=== PATIENT | female | born 1970 | race Caucasian/White ===

== ENCOUNTER 2024-12-13 09:40 | Outpatient (CLI) | payer BC, SELFPAY ==
--- OUTSIDE RECORDS SUMMARY | 2024-10-20 12:49 | XMS_ITS | Encounter Summary ---
Author Organization Healthcare Address [address] [place] [address] Care Team Providers Care Carpenter Supervisor [employer] Name Role Phone Jeferson Simental MD Primary Care Provider [phone] Reason for Visit * Reason Comments Post-op Problem * Auth/Cert (Routine) Specialty Diagnoses / Procedures Referred By Contac t Referred To Contact Diagnoses Dysphagia Dysphagia, unspecified type Chest pain, unspecified type Toyin Vila MD [address] [employer] [address] [place] [phone] Phone: tel: fax: [facility] [address] [place] [address] Phone: tel: Referral ID Status Reason Start Date Expiration Date Visits Re quested Visits Authorized [id number] 1 1 Encounter Details Date Type Department Care Team (Late st Contact Info) Description 10/20/2024 12:49 PM EDT - 10/23/2024 10:49 AM EDT Hospital Encounter [facility] [address] [place] [address] Toyin Vila MD [address] [employer] [address] [place] [phone] [place] [address] [place] [phone] Dysphagia, unspecified type (Primary Dx); Chest pain, unspecified type Discharge Disposition: Home or Self Care Social History Tobacco Use Types Packs/Day Years Used Date Smoking Tobacco: Never Smokeless Tobacco: Never Alcohol Use Standard Drinks/Week Comments Not Currently 0 (1 standard drink = 0.6 oz pure alcohol) 1 glass of wine every few months PHQ-2 Answer Date Recorded Patient Health Questionnaire-2 Score 0 09/16/2024 PHQ-9 Answer Date Recorded Patient Health Questionnaire-9 Score 0 09/16/2024 Humiliation, Afraid, Rape, and Kick questionnair e Answer Date Recorded Within the last year, have y ou been afraid of your partner or ex-partner? No 10/21/2024 Within the last year, have y ou been humiliated or emotionally abused in other ways by your partner or ex-partner? No Within the last year, have y ou been kicked, hit, slapped, or otherwise physically hurt by your partner or ex-partner? No 10/21/2024 Within the last year, have y ou been raped or forced to have any kind of sexual activity by your partner or ex-partner? No 10/21/2024 Hunger Vital Sign Answer Date Recorded Within the past 12 months, y ou worried that your food would run out before you got the money to buy more. Never true 10/22/19 25 Within the past 12 months, t he food you bought just didn't last and you didn't have money to get more. Never true 10/21/2024 PRAPARE - Transportation Answer Date Re corded In the past 12 months, has l ack of transportation kept you from medical appointments or from getting medications? No 01/2025 In the past 12 months, has l ack of transportation kept you from meetings, work, or from getting things needed for daily living? No 10/21/2024 Housing Stability Vital Sign Answer Rosas e Recorded In the last 12 months, was t here a time when you were not able to pay the mortgage or rent on time? No 10/21/2024 In the past 12 months, how m any times have you moved where you were living? 0 10/21/2024 At any time in the past 12 m [facility], were you homeless or living in a custodial (including now)? No 10/21/2024 Utilities Answer Date Recorded In the past 12 months has th e [employer], gas, oil, or water [employer] threatened to shut off services in your home? No 10/21/2024 Comments No Sex and Gender Information Value Date Recorded Sex Assigned at Not on file Legal Sex Female 6:10 PM EDT Gender Identity Not on file Sexual Orientation Not on file documented as of this encounter Last Filed Vital Signs Vital Sign Reading Time Taken Comments Blood Pressure 129/86 10/23/2024 7:28 AM EDT Pulse 70 10/23/2024 7:28 AM EDT Temperature 36.8 C (98.3 F) 10/23/2024 7:28 AM EDT Respiratory Rate 16 10/23/2024 7:28 AM EDT Oxygen Saturation 96% 10/23/2024 7:28 AM EDT Inhaled Oxygen Concentration - - Weight 63.1 kg (139 lb 1.8 oz) 10/21/2024 8:01 A M EDT Height 157.5 cm (5' 2.01 ) 10/21/2024 8:01 AM ED T Body Mass Index 25.44 10/21/2024 8:01 AM EDT documented in this encounter Functional Status * Calculated C-SSRS Risk Score (Lifetime/Recent) Answer Date of Assessment Author No Risk Indicated 10/23/2024 7:36 AM EDT Clif Mchugh RN * Question Answer Date of Assessment Author 1. Wish to be (Past 1 Month) No 10/23/2024 7:36 AM EDT Clif Loza RN 2. Non-Specific Active Suici tai Thoughts (Past 1 Month) No 10/23/2024 7:36 AM EDT Laurel Loza RN 6. Suicidal Behavior (Lifetime) No 7:36 AM EDT Clfi Loza RN documented as of this encounter Discharge Instructions * Discharge Instructions* Alexis Pagan MD - 10/23/2024 6:47 AM EDT Post Discharge Instructions Post-Operative Discharge Instructions: Medications: - Crush all medications or take liquid options for 2 weeks - Use Gax X regularly for 2 weeks then as needed for bloating, belching, nausea etc. - You have been prescribed pain medications to be taken as needed for severe pain. - You may resume your previous medications unless otherwise instructed. -Take tylenol for pain. Take hycet as needed every 6 hours for breakthrough pain. Try to wean pain medications as soon as able as discussed in the hospital. Nutrition: - You should consume a clear liquid diet as tolerated, focusing on liquids to keep yourself hydrated. Remain on clear liquid diet until follow up appointment in clinic Activity: - Walking and climbing stairs is ok and encouraged. You should refrain from any strenuous activity/exercise until your follow up appointment. - No lifting anything more than 10 pounds for the next 3 weeks - You may not drive for 48 hours after surgery, or while taking narcotics. DO NOT DRIVE WHILE TAKING NARCOTIC PAIN MEDICATIONS. Dressing: - sutures will continue to dissolve on own. No need to remove. documented in this encounter Medications at Time of Discharge acetaminophen (Tylenol) 160 MG/5ML solution Take 20 mL by mouth every 6 hours as needed for pain. 120 mL 10/23/2024 cholecalciferol (Vitamin D3) 25 MCG (1000 UT) tablet Take 1 tablet by mouth daily. estradiol (Vivelle-DOT) 0.05 MG/24HR Place 1 patch on the skin 2 times a week. Applied Monday and Monday estradiol-norethindr one (Combipatch) 0.05-0.14 MG/DAY Place 1 patch on the skin 2 times a week. Applies on Monday and Monday fluticasone (Flonase) 50 MCG/ACT nasal spray SPRAY TWO SPRAYS IN EACH NOSTRIL ONCE DAILY NEEDED FOR ALLERGIES HYDROcodone-acetamin ophen (Hycet) 7.5-325 MG/15ML solution Take 15 mL by mouth every 6 hours as needed for severe pain (pain). 420 mL 10/09/2024 lactobacillus (Culturelle Immunity Support) capsule Take 1 capsule by mouth nightly. metoprolol succinate XL (Toprol-XL) 25 MG 24 hr tablet Take 0.5 tablets by mouth daily. Crush pill to to take 15 tablet 10/23/2024 metoprolol tartrate (Lopressor) 25 MG tablet Take 0.25 tablets by mouth 2 times a day. Crush to take 15 tablet 10/23/2024 ondansetron ODT (Zofran-ODT) 4 MG disintegrating tablet Dissolve 1 tablet on the tongue every 6 hours as needed for nausea or vomiting. 20 tablet 1 10/09/2024 progesterone (Prometrium) 100 MG capsule Take 1 tablet by mouth nightly. rosuvastatin (Crestor) 20 MG tablet Take 1 tablet by mouth nightly. 07/30/2024 simethicone (Mylicon) 20 mg/0.3 mL drops Take 1.2 mL by mouth 4 times a day as needed for flatulence. 30 mL 10/09/2024 documented as of this encounter Miscellaneous Notes * Progress Notes - Minerva Roberts RN - 10/23/2024 10:49 AM EDT Case Management Discharge Note Lois Tinajero 54 y.o. female CSN: [id number] Admission: 10/20/2024 12:49 PM Primary Problem: Dysphagia Primary Research Laboratory Specialist: Primary Caregiver: Self Assistance Available at Discharge: friends Housing Circumstances-Z Codes: na Patient Referred to Financial or Community Resources: na Discharge Facility/Level of Care Needs: Discharge Facility/Level of Care Needs: 1-Home or Self Care Patient's Choice of Community Agency(s): na Patient/Family Anticipated Services at Transition: none DME/Equipment Needed after Discharge: none Equipment Currently Used at Home: none Readmission Within the Last 30 Days: na Medicare Documentation: na Follow-up: Dr Cadena 11/13/24 at 0910. Discharge Transportation: friend Pat Follow Up Transport: self/friends/brother Minerva Roberts RN * Oliver Serrano RN - 10/23/2024 8:15 AM EDT Images from the original note were not included. [address]6905 Using an Incentive Spirometer An incentive spirometer is a handheld device that helps you do deep breathing exercises after surgery. It also helps lower the risk of breathing problems if you have a lung disease or condition. These exercises expand your lungs, aid in circulation, and may help prevent pneumonia. Deep breathing exercises also help you breathe better and improve lung function by: ? Keeping your lungs clear. ? Making your breathing muscles stronger. ? Helping prevent respiratory complications or problems. The incentive spirometer gives you a way to take an active part in your recovery. A nurse or respiratory therapist will teach you breathing exercises. To do these exercises, you will breathe in through your mouth and not your nose. The incentive spirometer only works correctly if you breathe in through your mouth. Deep breathing expands the lungs, aids circulation, and helps prevent pneumonia. Your health care provider or their staff will tell you how to use the device, your targeted volume(s), and provide other helpful tips to prevent complications (such as pain, dizziness, feeling lightheaded) when blowing in the incentive spirometer. Steps to clear lungs Step 1. Exhale normally. Then, inhale normally. ? Relax and breathe out. Step 2. Place your lips tightly around the mouthpiece. ? Make sure the device is upright and not tilted. ? Sit up and breathe out (exhale) fully. ? Tightly seal your lips around the mouthpiece. Step 3. Inhale as much air as you can through the mouthpiece. Don't breathe through your nose. ? Breathe in (inhale) slowly and deeply. ? Hold your breath long enough to keep the balls, piston, or disk raised for at least 3 to 5 seconds, or as instructed by your health care provider. ? Exhale slowly to allow the balls, piston, or disk to fall before repeating. Note: Some spirometers have an indicator to let you know that you are breathing in too fast. If theindicator goes off, breathe in more slowly. Step 4. Repeat the exercise regularly. ? Do sets of 10 exercises every hour while you're awake, or as instructed by your health care provider. Don't do more than 30 breaths in each set. ? If you were taught deep breathing and coughing exercises, do them regularly as instructed by yourprovider, nurse, or respiratory therapist. Follow-up care Make a follow-up appointment as directed by your health care provider. Also, follow up with your provider as advised if your symptoms don't improve or continue to get worse. When to contact your doctor Contact your health care provider right away if you have: ? A fever 100.4?? (38??C) or higher, or as advised by your provider. ? Brownish, bloody, or smelly sputum (phlegm that you cough up). Call 911 Call 911 if any of these occur: ? Shortness of breath that doesn't get better after taking your medicine ? Cool, moist, pale, or blue skin ? Trouble breathing or swallowing, wheezing ? Fainting or loss of consciousness ? Feeling of dizziness or weakness, or a sudden drop in blood pressure ? Feeling very ill ? Lightheadedness ? Chest pain or rapid heart rate Last Reviewed Date: 2024 00:00:00 ?? [id number] [facility]. All rights reserved. This information is not intended as a substitute for professional medical care. Always follow your healthcare professional's instructions. * Z[facility] SantosDOM[facility] - Oliver Mae RN - 10/23/2024 8:15 AM EDT Images from the original note were not included. 50811 Preventing Deep Vein Thrombosis After Surgery In the days and weeks after surgery, you have a higher chance of developing a deep vein thrombosis (DVT). This is a condition in which a blood clot or thrombus develops in a deep vein. They are most common in the leg. But a DVT may develop in an arm or another deep vein in the body. A piece of the clot, called an embolus, can separate from the vein and travel to the lungs. A blood clot in the lungs is called a pulmonary embolus (PE). This can cut off the flow of blood to the lungs. It's a medical emergency and may cause . Healthcare providers use the term venous thromboembolism (VTE) to describe both DVT and PE. They use the term VTE because the two conditions are very closely related and their prevention and treatment are similar. Prevention in the hospital or other facility Your healthcare provider will usually prescribe one or more of the following to prevent blood clots: ? Blood-thinner (anticoagulant). This medicine prevents blood clots. You take it by mouth, by injection, or through an IV (intravenous). Commonly used anticoagulants include warfarin and heparin. Newer anticoagulants may also be used, including rivaroxaban, apixaban, dabigatran, and enoxaparin. Sometimes, your healthcare provider may not give you an anticoagulant medicine. It's important that they discuss the risks and benefits with you and document them. ? Compression stockings. These elastic stockings fit tightly around your legs. They help keep bloodflowing toward your heart by the pressure they apply. They prevent blood from pooling and forming blood clots. When you first put them on, the stockings may be uncomfortable. But after a while, you should get used to them. ? Exercises. Simple exercises while you are resting in bed or sitting in a chair can help prevent blood clots. Move your feet in a [place] or up and down. Do this 10 times an hour to improve circulation. ? Getting out of bed and walking (ambulation). After surgery, a nurse will help you out of bed as soon as you are able. Moving around improves circulation and helps prevent blood clots. ? Sequential compression device (SCD) or intermittent pneumatic compression (IPC). Plastic sleeves are wrapped around your legs and connected to a pump that inflates and deflates the sleeves. This applies gentle pressure to promote blood flow in the legs and prevent blood clots. Remove the sleeves so that you don't trip or fall when you are walking. For example, when you use the bathroom or shower. If you need help removing the sleeves, ask for help. Prevention at home Ankle exercises can help keep blood flowing in the veins. Deep vein thrombosis can happen even after you go home. Follow all instructions from your healthcare provider. The following are some general guidelines about DVT prevention: ? Blood-thinner medicine. If a blood thinner was prescribed, make sure you follow all directions about taking it. Be sure you know what foods and medicines may interact. Also, ask your healthcare provider what to do if you forget to take a dose. ? Compression stockings. Your healthcare provider will tell you how often to wear and remove the stockings. Follow all instructions closely. Each time you remove your stockings, check your legs and feet for reddened areas or sores. If you see any changes, call your healthcare provider right away. ? Returning to activity. Follow all instructions about returning to activities. Be as active as youcan. This improves blood flow and helps prevent a clot from forming. When in bed or in a chair, continue with the ankle exercises you did in the hospital. ? Sequential compression device (SCD) or intermittent pneumatic compression (IPC). In some cases, this device may be recommended at home. If you are using this device at home, make sure you closely follow all instructions from your healthcare provider. You will be instructed on how often and for how long to use the device. Again, remove the sleeves if you are up and walking. When to call your healthcare provider You may have signs or symptoms of a blood clot. Or you may have signs or symptoms of bleeding from medicines to prevent clots. Call your healthcare provider if you have the following: ? Pain, swelling, or redness in the leg, arm, or other area ? Blood in the urine or stool ? Very dark or tar-like stool ? Vomiting with blood ? Bleeding from the nose ? Bleeding from the gums ? A cut that will not stop bleeding ? Bleeding from the vagina Call 911 Call 911 if you have any of the following: ? Chest pain ? Shortness of breath ? Fast heartbeat ? Excessive sweating ? Fainting ? Coughing (may cough up blood) ? Heavy or uncontrolled bleeding Last Reviewed Date: 2021 00:00:00 ?? [id number] [facility]. All rights reserved. This information is not intended as a substitute for professional medical care. Always follow your healthcare professional's instructions. * [facility] - Oliver Mae RN - 10/23/2024 8:15 AM EDT Images from the original note were not included. 43911 Preventing a Surgical Site Infection A risk of any surgery is an infection at the surgical site. The surgical site is a cut the surgeon makes in the skin to do the surgery. Surgical site infections can range in type. It may be a minor skin infection. Or it may be severe and include tissue under the skin or other organs. In some cases,a severe infection can cause . The information below tells you: ? About surgical site infections. ? What hospitals do to prevent them. ? How they?re treated if they do occur. ? What you can do to prevent an infection. Hand washing reduces the risk of infection. What causes a surgical site infection? Germs are everywhere. They?re on your skin, in the air, and on things you touch. Many germs are good. Some are harmful. Surgical site infections occur when harmful germs enter your body through the incision in your skin. Some infections are caused by germs that are in the air or on objects. But most are caused by germs found on and in your own body. Who is at risk for a surgical site infection? Anyone can have a surgical site infection. Your risk is higher if you: ? Are an older adult. ? Have a weak immune system. ? Have other health conditions such as diabetes. ? Take certain medicines, such as steroids. ? Are a smoker. ? Have certain types of surgery, such as abdominal surgery. ? Have poor nutrition. ? Are very overweight. ? Have a surgery that lasts longer than 2 hours. What are the symptoms of a surgical site infection? An infection often shows up as skin redness, pain, and swelling around the incision that gets worse. Later, a cloudy or greenish-yellow fluid may come from the incision. The fluid may smell bad. The incision may pull apart or open up. You are likely to have a fever and may feel very ill. Symptoms can appear at any time. They may happen from hours to weeks after surgery. Implants such as an artificial knee or hip can become infected at any time after the surgery. How is a surgical site infection treated? ? A surgical site infection is treated with antibiotics. The type of medicine you get will depend on what may be causing the infection. Most serious wound infections need wound care. In some cases, surgery may be needed on the infected wound. ? An infected skin wound may be reopened and cleaned. A deep wound may need to be packed with gauze. The gauze is changed often until the wound starts to heal from the inside out. Your health care provider will decide the best way to treat your infection. ? If an infection occurs where an implant is placed, the implant may be removed. ? If you have an infection deeper in your body, you may need surgery to treat it. What hospitals do to prevent surgical site infections Many hospitals take these steps to help prevent surgical site infections: ? Handwashing. Before the surgery, your surgeon and all surgery staff scrub their hands and arms with an antiseptic soap. ? Clean skin. The site where your incision is made is carefully cleaned with an antiseptic solution. ? Sterile clothing and drapes. The surgical team wears medical uniforms. These are known as scrub suits. They wear long-sleeved surgical gowns, masks, caps, shoe covers, and sterile gloves. Your bodyis fully covered with a large sterile sheet (sterile drape). There is an opening in the sheet wherethe incision is made. ? Clean air. Operating rooms have special air filters. They use positive pressure airflow to prevent unfiltered air from entering the room. ? Careful use of antibiotics. Antibiotics are given no more than 60 minutes before the incision is made. They are generally stopped within 24 hours after surgery. This depends on the type of surgery.This helps kill germs but prevents problems that can occur when antibiotics are taken longer. ? Controlled blood sugar levels. Your blood sugar level may rise. This can be because of the stressof the surgery. Your blood sugar level is watched closely to make sure it stays within a normal range. High blood sugar delays wound healing. This increases the risk of infection. ? Controlled body temperature. A dyzeb-ejlp-iqrqhn temperature during or after surgery prevents oxygen from reaching the wound. This makes it harder for your body to fight infection. Hospitals may warm I.V. fluids, and provide warm-air blankets. Your temperature is watched throughout the surgery. ? Safe hair removal. Any hair that must be removed is clipped right before the incision, not shavedwith a razor. This prevents tiny nicks and cuts where germs can enter. ? Wound care. After surgery, a closed wound is covered with a sterile dressing for 1 to 2 days. Open wounds are packed with sterile gauze and covered with a sterile dressing. What you can do to prevent a surgical site infection ? Ask questions. Learn what your hospital is doing to prevent infection. ? If instructed, shower or bathe with plain soap the night before and the day of your surgery. Follow all instructions you're given. You may be asked to use a special cleanser that you don?t rinse off. ? If you smoke, stop as long as possible before and after the surgery. Ask your provider about waysto quit. ? Take antibiotics only when your provider tells you to. Using antibiotics when they?re not needed can create germs that are harder to kill. Finish the entire prescription of your antibiotics even ifyou feel better. ? Ask health care workers to clean their hands with plain soap and water or with an alcohol-based hand interlocking pavement installer before and after caring for you. Don?t be afraid to remind them. ? After surgery, eat healthy foods. Care for your incision as directed by your health care team. When to contact your doctor Contact your provider or seek medical care right away if: ? The pain at the surgical site gets worse. ? A red streak, worse redness, or puffiness appears near the incision. ? Yellowish, cloudy, or bad-smelling fluid leaks from the incision. ? Your stitches dissolve before the wound heals. ? You have a fever of 100.4?? F ( 38??C ) or higher, or as advised by your provider. ? You have a tired feeling that doesn?t go away. Last Reviewed Date: 2024 00:00:00 ?? [id number] [facility]. All rights reserved. This information is not intended as a substitute for professional medical care. Always follow your healthcare professional's instructions. * [facility] - Oliver Mae RN - 10/23/2024 8:15 AM EDT Images from the original note were not included. 14832 Discharge Instructions for Laparoscopic Otilio Fundoplication Laparoscopic Otilio fundoplication is done to treat gastroesophageal reflux disease (GERD). GERD happens when food or stomach acid backs up (refluxes) from your stomach into your esophagus. This reflux can damage your esophagus. For the procedure, a few small cuts (incisions) were made in your belly. Working through these incisions, the surgeon wrapped the upper part of your stomach (fundus) around the lower end of the esophagus. This creates pressure on the esophagus, helping to hold it closed. The pressure prevents food and stomach acid from refluxing or flowing back into the esophagus. After surgery You will likely stay in the hospital for one or more nights. After you return home, follow the instructions below and any others you are given. Activity Here are suggestions for what you can and can't do as you recover from surgery: ? You will likely want to take it easy for 3 to 5 days. You can go back to your normal daily routine when you are feeling well enough. When you can return to work depends on what type of work you do.Check with your surgeon. ? You can do light activity at home, like using stairs. But don't do any heavy lifting, pulling, straining, or strenuous exercise for a period of time as advised by your surgeon. ? Walk as often as you feel able. This will help with your recovery. ? Don?t operate any machinery or drive while you are still taking opioid pain medicine. These medicines cause drowsiness, so driving or using machinery isn't safe. ? Drive when you're sure you can hit the brake pedal without wincing or hesitating. ? Continue the coughing and deep breathing exercises that you learned in the hospital. ? You may feel some pain in your shoulders for the first few days. It's caused by the gas used to inflate the abdomen during your surgery. Bandage and incision care Your incisions will be covered by plastic bandages or strips of tape. ? Don't get the bandage or wound wet for 48 hours or as advised by your surgeon. ? You can remove plastic bandages in 48 hours or as advised by your surgeon. If strips of tape wereused to close your incisions, don?t pull them off. Let them fall off on their own. ? When you can get the incision wet, very gently wash your incisions with mild soap and water. Pat them dry. Don?t use oils, powders, or lotions on your incisions. Talk with your doctor before using antibiotic ointment on the wound. ? Do not go swimming or soak in a bathtub or hot tub until your doctor tells you it's safe to do so. ? Check the wound daily for signs of infection. These signs include redness, warmth to the touch, and drainage that's thick, yellow, green, or milky. Medicine use Take all prescribed medicines as directed: ? Until you can swallow easily, take liquid medicines. If you are given pills, crush them and swallow them with liquids. Some pills can't or shouldn't be crushed, so check with your doctor or pharmacist before crushing pills. ? If you are given pain medicine, take it on time as directed. Don't wait for the pain to be severebefore you take it. ? If you are prescribed antibiotics to fight or prevent infection, take all the medicine until it is gone. ? If you have been on medicines to prevent reflux, ask your doctor if you should stop taking them. Eating and drinking At first, swallowing will be hard. This is due to the swelling inside your esophagus, which will get better over time. You may also have belly bloating and pain. That's because you won't be able to belch for a time after surgery. Follow any guidelines your doctor gives you for what to eat and what to stay away from during your recovery. ? Follow a liquid diet as advised. ? Add solid foods back into your diet as you can handle them and as advised by your doctor. ? Don't drink iced, hot, or fizzy beverages. Don't drink through straws. This is to help prevent mild pain in your belly. Ask your doctor what foods you can eat and drink right after your surgery. ? Take small bites and chew well when eating solid foods. Always swallow the last bite before you take another. Sip water with your meals to help with swallowing. ? Don't eat foods that stick together. These include peanut butter, bread products, rice, and dry meats. They can be tough to swallow. ? Limit foods that produce gas. These include tomato products, fatty or spicy foods, caffeine, alcohol, onions, green peppers, beans, nuts, and raw fruits and vegetables. ? Sit up straight while eating. Stay upright for at least 20 minutes after a meal. ? If eating makes you feel bloated, try several small meals a day instead of three large meals. Keep follow-up appointments Go to your follow-up appointments. These allow your doctor to check your progress and make sure you?re healing well. During office visits, tell your doctor if you have any new symptoms or any reflux.Ask any questions you have. Call 911 Call 911 right away if you have chest pain or trouble breathing. When to call your doctor Contact your doctor right away if you have: ? Reflux symptoms that continue or return. ? A large amount of belly swelling or pain, especially pain after coughing. ? Bleeding. ? Soreness in your belly, or your belly feels hard. ? Increased redness or drainage of the incision. ? A fever of 100.4??F (38??C) or higher, or as advised by your doctor. ? Chills. ? An inability to drink or eat. ? Bowel movements that are black or bloody. ? Pain or soreness in your legs. ? Yellowing of the skin or the white part of your eyes. ? Trouble breathing or a cough that doesn't go away. Last Reviewed Date: 2024 00:00:00 ?? [id number] [facility]. All rights reserved. This information is not intended as a substitute for professional medical care. Always follow your healthcare professional's instructions. * Discharge Summary - Alexis Pagan MD - 10/23/2024 6:47 AM EDT Hospitalization Admit Date/Time: 10/20/2024 12:49 PM Admitting Attending: Toyin Vila Discharge Date: 10/23/24 Discharge Attending Physician: Jay Cadena MD PCP name and Address: Jeferson Simental MD [address] [id number] Referring provider name and address: No referring provider defined for this encounter. Chief Concern, Brief History of Present Illness, and Hospital Course Lois Tinajero is a 54 y.o. female who presented to the [facility] emergency department with Dysphagia. She was admitted on 10/20/2024 for further studies and monitoring. CT abdomen/pelvis demonstrated edema around the toupet fundoplication. Upper GI study also indicated this as well. Pain was initially controlled with IV pain medication and was later transitioned to oral pain medication, and diet was advanced as tolerated. The patient's hospital course was uncomplicated, and it was felt that the patient had reached maximal benefit from hospitalization. On 10/23/24 the patient was deemed appropriate for discharge to home. On day of discharge, the patient was afebrile and hemodynamically stable, tolerating po intake ofclear liquids, the patient's pain was controlled on oral medications, they were ambulating well, voiding appropriately, and passing flatus/BM. The patient was discharged on 10/23/24 to home and will return to clinic for routine post-procedurefollow up with Dr. Cadena in 1-2 weeks. Surgeries and Procedures Medication List PAUSE taking these medications estradiol 0.05 MG/24HR Wait to take this until your doctor or other care provider tells you to start again. Commonly known as: Vivelle-DOT Place 1 patch on the skin 2 times a week. Applied Monday and Monday lactobacillus capsule Wait to take this until your doctor or other care provider tells you to start again. Take 1 capsule by mouth nightly. progesterone 100 MG capsule Wait to take this until your doctor or other care provider tells you to start again. Commonly known as: Prometrium Take 1 tablet by mouth nightly. rosuvastatin 20 MG tablet Wait to take this until your doctor or other care provider tells you to start again. Commonly known as: Crestor Take 1 tablet by mouth nightly. .. acetaminophen 160 MG/5ML solution Commonly known as: Tylenol Take 20 mL by mouth every 6 hours as needed for pain. cholecalciferol 25 MCG (1000 UT) tablet Commonly known as: Vitamin D3 Take 1 tablet by mouth daily. estradiol-norethindrone 0.05-0.14 MG/DAY Commonly known as: Combipatch Place 1 patch on the skin 2 times a week. Applies on Monday and Monday fluticasone 50 MCG/ACT nasal spray Commonly known as: Flonase SPRAY TWO SPRAYS IN EACH NOSTRIL ONCE DAILY NEEDED FOR ALLERGIES HYDROcodone-acetaminophen 7.5-325 MG/15ML solution Commonly known as: Hycet Take 15 mL by mouth every 6 hours as needed for severe pain (pain). metoprolol succinate XL 25 MG 24 hr tablet Commonly known as: Toprol-XL Take 0.5 tablets by mouth daily. Crush pill to to take ondansetron ODT 4 MG disintegrating tablet Commonly known as: Zofran-ODT Dissolve 1 tablet on the tongue every 6 hours as needed for nausea or vomiting. simethicone 20 mg/0.3 mL drops Commonly known as: Mylicon Take 1.2 mL by mouth 4 times a day as needed for flatulence. Where to Get Your Medications These medications were sent to [facility] [place] [id number] acetaminophen 160 MG/5ML solution metoprolol succinate XL 25 MG 24 hr tablet Discharge Diagnosis Medical Problems Active and Resolved Hospital Problems Hospital * (Principal) Dysphagia Post Discharge Instructions Post Discharge Instructions Post-Operative Discharge Instructions: Medications: - Crush all medications or take liquid options for 2 weeks - Use Gax X regularly for 2 weeks then as needed for bloating, belching, nausea etc. - You have been prescribed pain medications to be taken as needed for severe pain. - You may resume your previous medications unless otherwise instructed. -Take tylenol for pain. Take hycet as needed every 6 hours for breakthrough pain. Try to wean pain medications as soon as able as discussed in the hospital. Nutrition: - You should consume a clear liquid diet as tolerated, focusing on liquids to keep yourself hydrated. Remain on clear liquid diet until follow up appointment in clinic Activity: - Walking and climbing stairs is ok and encouraged. You should refrain from any strenuous activity/exercise until your follow up appointment. - No lifting anything more than 10 pounds for the next 3 weeks - You may not drive for 48 hours after surgery, or while taking narcotics. DO NOT DRIVE WHILE TAKING NARCOTIC PAIN MEDICATIONS. Dressing: - sutures will continue to dissolve on own. No need to remove. Outpatient Follow-Up Future Appointments Date Time Provider Department Center 11/13/2024 9:10 AM Jay Cadena MD [facility] 12/31/2024 1:15 PM Alida Roberts APRN, DNP [facility] 04/09/2025 1:00 PM OCR-[facility] Test Results Pending At Discharge Pertinent Physical Exam At Time of Discharge Physical Exam Gen: Alert, interactive, nontoxic Head: Normocephalic, atraumatic Eyes: No scleral icterus, no conjunctival injection Ears: Pinnae without laceration or deformity, no drainage Nose: Nares patent, no drainage Mouth: Mucous membranes pink and moist Neck: Soft, supple, no palpable masses Chest: Symmetric chest rise, unlabored breathing CV: No cyanosis, no edema Abdomen: soft, nondistended, nontender. Laparoscopic incisions with surgical glue, healing well. Ext: Full ROM, no gross deformities Skin: Warm, well perfused Psych: Appropriate mood and affect Discharge Disposition/Condition Disposition: Home Condition: Stable (s/sx potential problems absent or manageable) I spent >30 minutes of patient care and instruction time in preparation for this discharge. Cosigned by Jay Cadena MD at 10/23/2024 11:55 PM EDT * Hospital Course - Alexis Pagan MD - 10/23/2024 6:43 AM EDT Lois Tinajero is a 54 y.o. female who presented to the [facility] emergency department with Dysphagia. She was admitted on 10/20/2024 for further studies and monitoring. CT abdomen/pelvis demonstrated edema around the toupet fundoplication. Upper GI study also indicated this as well. Pain was initially controlled with IV pain medication and was later transitioned to oral pain medication, and diet was advanced as tolerated. The patient's hospital course was uncomplicated, and it was felt that the patient had reached maximal benefit from hospitalization. On 10/23/24 the patient was deemed appropriate for discharge to home. On day of discharge, the patient was afebrile and hemodynamically stable, tolerating po intake ofclear liquids, the patient's pain was controlled on oral medications, they were ambulating well, voiding appropriately, and passing flatus/BM. The patient was discharged on 10/23/24 to home and will return to clinic for routine post-procedurefollow up with Dr. Cadena in 1-2 weeks. * Care Plan - Terri Fowleravia - 10/23/2024 2:45 AM EDT Problem: Adult Inpatient Plan of Care Goal: Plan of Care Review Outcome: Ongoing, Progressing Goal: Patient-Specific Goal (Individualized) Outcome: Ongoing, Progressing Goal: Absence of Hospital-Acquired Illness or Injury Outcome: Ongoing, Progressing Goal: Optimal Comfort and Wellbeing Outcome: Ongoing, Progressing Goal: Readiness for Transition of Care Outcome: Ongoing, Progressing Problem: Swallowing Impairment Goal: Optimal Eating/Swallowing without Aspiration Outcome: Ongoing, Progressing Intervention: Optimize Eating and Swallowing Flowsheets (Taken 10/23/2024 0243) Aspiration Precautions: oral hygiene care promoted respiratory status monitored Swallowing Interventions: Dysphagia: oral intake paced upright position maintained 30 mins after intake * Progress Notes - Alexis Pagan MD - 10/22/2024 7:33 AM EDT Images from the original note were not included. [facility] Department of Surgery Division of General, Endocrine, & Metabolic Surgery Surgery Progress Note 10/22/24 Lois Tinajero Subjective Subjective: HPI 54F with PMHx HTN, HLD, chronic hyponatremia, GERD, and hiatal hernia s/p laparoscopic hiatal hernia repair with mesh and toupet fundoplication on 10/08/24 who presented to the [facility] on 10/20/[address] demonstrates edema around the wrap. Interval: NAEO. Afebrile and asymptomatic HTN overnight. Says she feels a little bit better today. She ate/drank 2 cups of ice chips, 2 popcicles, 5 oz apple juice, and a jello yesterday. She denies any nausea or vomiting. Still refluxing some fluids but has improved. She is voiding spontaneously and passing flatus. Ambulating well. Edited by: Alexis Pagan MD at 10/22/2024 0733 Objective Objective: Vital signs: Vitals: 10/22/24 0717 BP: (!) 142/96 Pulse: 74 Resp: Temp: 36.6 ??C (97.8 ??F) SpO2: 93% Physical Exam: Physical Exam Gen: Alert, interactive, nontoxic Head: Normocephalic, atraumatic Eyes: No scleral icterus, no conjunctival injection Ears: Pinnae without laceration or deformity, no drainage Nose: Nares patent, no drainage Mouth: Mucous membranes pink and moist, tongue with full ROM Neck: Soft, supple, no palpable masses Chest: Symmetric chest rise, unlabored breathing CV: No cyanosis, no edema Abdomen: soft, nondistended, nontender. Laparoscopic incisions with surgical glue, healing well. Ext: Full ROM, no gross deformities Skin: Warm, well perfused Psych: Appropriate mood and affect Intake/Output Summary (Last 24 hours) at 10/22/2024 0733 Last data filed at 10/22/2024 0424 Gross per 24 hour Intake 1174.73 ml Output 1300 ml Net -125.27 ml Lines/Drains/Tubes: Patient Lines/Drains/Airways Status Active Airway None Output by Drain (mL) 10/20/24 07 - 10/20/24 1859 10/20/24 1900 - 10/21/24 0659 10/21/24 07 - 10/21/24 1859 10/21/24 1900 - 10/22/24 0659 10/22/24 07 - 10/22/24 0733 Patient has no LDAs of requested type attached. Labs in last 18 hours: CBC WBC ?? Hb ?? Plt ?? Hct ?? ANC ?? INR ??, PTT ??, Anti-Xa ?? MCV ?? BMP Na ?? Cl ?? BUN ?? Glu ?? K ?? Co2 ?? Cr ?? Ca ?? iCa ?? Mg ??, Phos ?? Lactate ?? LFT AST ?? AlkPhos ?? T Prot ?? ALK ?? Bili ?? Alb ?? D.Bili ?? Lab Trends: H/H Results from last 7 days Lab Units 10/20/24 1319 HEMOGLOBIN g/dL 12.6 HEMATOCRIT % 39.1 INR Results from last 7 days Lab Units 10/20/24 1319 INR 1.1 Cr Results from last 7 days Lab Units 10/20/24 1319 CREATININE mg/dL 0.71 Lactate No lab exists for component: LACTTEVEN FL Upper GI Result Date: 10/21/2024 Impression: No leak. Small caliber distal esophageal channel with delayed emptying of the esophagusmay be secondary to persistent postoperative edema/inflammation, however tight fundoplication is a possibility. CRITICAL RESULT: No. COMMUNICATION: Per this written report. By electronically signing t his report, I, the attending physician, attest that I have personally reviewed the images/data for the above examination(s) and agree with the final edited report. Drafted by Ramses Grijalva MD on 10/21/2024 11:30 AM Final report signed by Suzy Rogel MD on 10/21/2024 1:10 PM Radiographic Interpretation: I have reviewed the imaging above and agree with the radiologist interpretation. Medications reviewed. Vital signs reviewed. Labs reviewed. Assessment/Plan Assessment and Plan: Medical Problems Problem List * (Principal) Dysphagia Gastroesophageal reflux disease with esophagitis without hemorrhage Tachycardia Hiatal hernia with gastroesophageal reflux Present on Admission: Dysphagia Plan: - CLD - Track oral intake - Continue steroids through tomorrow - Valium for spasms - Continue hot packs/ice packs for shoulder Edited by: Alexis Pagan MD at 10/22/2024 0733 Dispo: Continue Current Level of Care Alexis Pagan MD Cosigned by Jay Cadena MD at 10/22/2024 1:40 PM EDT Associated attestation - Jay Cadena MD - 10/22/2024 1:40 PM EDT I saw and evaluated the patient with the resident/fellow. I discussed the case with the resident/fellow and agree with the findings and plan as documented. * Progress Notes - Minerva Roberts RN - 10/21/2024 1:37 PM EDT Case Management Adult Initial Progress Note Lois Tinajero 54 y.o. female CSN: [id number] Admission: 10/20/2024 12:49 PM Primary Problem: Dysphagia Fisher Swordfish reviewed chart and spoke with patient and pt's friend Amy to complete this Initial Case Management Assessment. 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 No (Pt has added her legal NOK at brother Michael Tavares, phone [phone], lives in [place], [place]) Insurance: Primary Visit Coverage Payer Plan Sponsor Code Group Number Group Name [facility] [place] [id number] Primary Visit Coverage Subscriber Subscriber ID Subscriber Name Subscriber SSN Subscriber Address [id number] LOIS TINAJERO [id number] [place] [address] Patient information: Primary Caregiver: Self Support System: Immediate family Daily Living Activities: Functional Status: Independent Living Arrangements: Alone Type of Residence: Private residence, Multi Level [address] [place] [address] Current DME: Equipment Currently Used at Home: none Income Information: Income Source: Unemployed Housing Circumstances-Z Codes: na Patient Referred to: na Anticipated Discharge Date: 1-2 d Patient's Discharge Goal: home Assistance Available at Discharge: friend Pat Discharge Transport: friend Pat Follow Up Transport: self Home Health / Home Infusion / Outpatient Dialysis Services: none Living Will/Advance Directive/Power of Recreational Programs Director /Guardian: none Additional Comments: Pt denies dc needs/concerns. Minerva Roberts RN * Care Plan - Clif Loza RN - 10/21/2024 11:47 AM EDT Problem: Adult Inpatient Plan of Care Goal: Plan of Care Review 10/21/2024 1143 by Clif Loza RN Outcome: Ongoing, Progressing Flowsheets (Taken 10/21/2024 0801) Progress: no change Plan of Care Reviewed With: patient 10/21/2024 1040 by Clif Loza RN Flowsheets (Taken 10/21/2024 1040) Plan of Care Reviewed With: patient Goal: Patient-Specific Goal (Individualized) Outcome: Ongoing, Progressing Goal: Absence of Hospital-Acquired Illness or Injury Outcome: Ongoing, Progressing Intervention: Identify and Manage Fall Risk Flowsheets (Taken 10/21/2024 0801) Safety Promotion/Fall Prevention: room organization consistent safety round/check completed nonskid shoes/slippers when out of bed clutter-free environment maintained Intervention: Prevent Skin Injury Flowsheets (Taken 10/21/2024 0801) Skin Protection: protective footwear used Intervention: Prevent and Manage VTE (Venous Thromboembolism) Risk Flowsheets (Taken 10/21/2024 1040) VTE Prevention/Management: SCDs (sequential compression devices) on Intervention: Prevent Infection Flowsheets (Taken 10/21/2024 08) Infection Prevention: equipment surfaces disinfected hand hygiene promoted environmental surveillance performed Goal: Optimal Comfort and Wellbeing Outcome: Ongoing, Progressing Intervention: Monitor Pain and Promote Comfort Flowsheets (Taken 10/21/2024 1143) Pain Management Interventions: ambulation/increased activity care clustered heat applied pain management plan reviewed with patient/caregiver Intervention: Provide Person-Centered Care Flowsheets (Taken 10/21/2024 08) Trust Relationship/Rapport: care explained choices provided empathic listening provided questions encouraged questions answered Goal: Readiness for Transition of Care Outcome: Ongoing, Progressing Intervention: Mutually Develop Transition Plan Flowsheets (Taken 10/21/2024800) Transportation Concerns: none Concerns to be Addressed: denies needs/concerns at this time * Tanisha Hernandez - 10/21/2024 10:36 AM EDT Images from the original note were not included. [id number] Caring for Yourself after Fluoroscopy Imaging ? If you had ORAL (liquid or tablet taken by mouth) or RECTAL contrast: Including the following medicines: Barium Sulfate, Iodinated Contrast Media ? You can go back to your normal diet and activity as tolerated. ? Drink plenty of fluids, unless told otherwise. ? Your stool may be discolored (light or white) for 1 to 2 days. This is normal. ? If you had intravesical (bladder) contrast: ? Return to normal diet and activity. ? If you had a modified barium swallow (taken by mouth): ? Your stool may be discolored (light or white) for 1 to 2 days. This is normal. ? The speech therapist will give you diet instructions. What side effects may I notice from the contrast? These are the most common. They do not need medical help in most cases. Tell your health care provider if they do not go away or get worse. Nausea or vomiting ? Constipation ? Cramping ? Diarrhea When to call for help When to call 911 or go to your nearest emergency room: If you need emergency medical help When to call Diagnostic Radiology: ? Call if you have any of these: o Pain or swelling that doesn?t get better by 3 days after your test. o Fever of 100.4F (38C) or higher. o Redness, swelling, bleeding, or other drainage from the injection site. o Any medical concerns related to the exam, such as: o Allergic reactions like skin rash, itching or hives, swelling of the face, lips or tongue o Feeling short of breath or like you can?t take a deep breath o Abnormal heart rhythms o Nausea or vomiting o Feeling dizzy or woozy o High or low blood pressure o Stomach or lower belly pain ? Where to call: o Call the Diagnostic Radiology Nurse at [phone], Monday-Monday, 8 a.m.-5 p.m. o Nights, weekends, or holidays, call [phone]. Ask for the Emergency Radiology Physician. When to call your referring health care provider: ? For any minor health concerns. ? If you have any symptoms or complications that last more than 5 days. * Consults - Jorje Beach - 10/21/2024 10:15 AM EDT Pastoral Care Note Agriculture Research Director visited in [facility]. She was out of the room for care at the time. Agriculture Research Director met Lois friend and introduced Pastoral Services to her. Referral From: Agriculture Research Director Initiated Pastoral Care Provided For: Friend, Patient Patient Profile: Consult Reasons: Initial visit Spiritual Assessment: Support Systems/ Spiritual Resources: Katie, Family, Prayer Spiritual Needs: Emotional support, Prayer, Spiritual support Spiritual Issues: Chronic pain/ illness Interventions: Interventions Provided: Introduced Patient/Family to Agriculture Research Director Services Pastoral Care Outcomes: Patient Outcomes: Is knowledgeable about Children'S Program Coordinator Services, Appreciative of Agriculture Research Director Support * Progress Notes - Alexis Pagan MD - 10/21/2024 7:11 AM EDT Images from the original note were not included. [facility] Department of Surgery Division of General, Endocrine, & Metabolic Surgery Surgery Progress Note 10/21/24 Lois Tinajero Subjective Subjective: HPI 54F with PMHx HTN, HLD, chronic hyponatremia, GERD, and hiatal hernia s/p laparoscopic hiatal hernia repair with mesh and toupet fundoplication on 10/08/24 who presented to the [facility] on 10/20/2024 with difficulty drinking. Interval: NAEO. Continued to feel like liquids were refluxing back up after drinking. Still sore inleft shoulder. Hot packs are helping. Edited by: Alexis Pagan MD at 10/21/2024 0711 Objective Objective: Vital signs: Vitals: 10/21/24 0226 BP: (!) 151/85 Pulse: 56 Resp: 17 Temp: 36.5 ??C (97.7 ??F) SpO2: 95% Physical Exam: Physical Exam Gen: Alert, interactive, nontoxic Head: Normocephalic, atraumatic Eyes: No scleral icterus, no conjunctival injection Ears: Pinnae without laceration or deformity, no drainage Nose: Nares patent, no drainage Mouth: Mucous membranes pink and moist, tongue with full ROM Neck: Soft, supple, no palpable masses Chest: Symmetric chest rise, unlabored breathing CV: No cyanosis, no edema Abdomen: soft, nondistended, nontender. Laparoscopic incisions with surgical glue, healing well. Ext: Full ROM, no gross deformities Skin: Warm, well perfused Psych: Appropriate mood and affect Intake/Output Summary (Last 24 hours) at 10/21/2024 0711 Last data filed at 10/21/2024 0607 Gross per 24 hour Intake -- Output 500 ml Net -500 ml Lines/Drains/Tubes: Patient Lines/Drains/Airways Status Active Airway None Output by Drain (mL) 10/19/24 07 - 10/19/24 18510/19/24 190 - 10/20/24 0659 10/20/24 07 - 10/20/24 1859 10/20/24 190 - 10/21/24 0659 10/21/24 07 - 10/21/24 0711 Patient has no LDAs of requested type attached. Labs in last 18 hours: CBC WBC 7.20 Hb 12.6 Plt 390 (H) Hct 39.1 ANC 5.98 INR 1.1, PTT ??, Anti-Xa ?? MCV 87 BMP Na 135 (L) Cl 99 BUN 8 Glu 108 (H) K 3.9 Co2 23 Cr 0.71 Ca 9.5 iCa ?? Mg 1.9, Phos 3.6 Lactate ?? LFT AST 17 AlkPhos 79 T Prot 7.7 ALK 18 Bili 0.3 Alb ?? D.Bili ?? Lab Trends: H/H Results from last 7 days Lab Units 10/20/24 1319 HEMOGLOBIN g/dL 12.6 HEMATOCRIT % 39.1 INR Results from last 7 days Lab Units 10/20/24 1319 INR 1.1 Cr Results from last 7 days Lab Units 10/20/24 1319 CREATININE mg/dL 0.71 Lactate No lab exists for component: LACTTEVEN XR Chest 1 View Result Date: 10/20/2024 Impression: No acute findings. CRITICAL RESULT: No. COMMUNICATION: Per this written report. Preliminary report signed by Kristi Lion MD on 10/20/2024 2:19 PM By electronically signing this report,I, the attending physician, attest that I have personally reviewed the images/data for the above examination(s) and agree with the final edited report. Drafted by Kristi Lion MD on 10/20/2024 2:18PM Final report signed by Becca Javier MD on 10/20/2024 3:[address] Abdomen Pelvis w IV Contrast Result Date: 10/20/2024 Impression: Postsurgical changes of fundoplication. Significant edema of the wrapped stomach resulting in stenosis suggests the possibility of a tight fundoplication. 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 CRITICAL RESULT: No. COMMUNICATION: Per this written report. Drafted by Becca Javier MD on 10/20/2024 2:42 PM Final report signed by Becca Javier MD on 10/20/2024 2:49 PM Radiographic Interpretation: No relevant imaging to review. Medications reviewed. Vital signs reviewed. Labs reviewed. Assessment/Plan Assessment and Plan: Medical Problems Problem List * (Principal) Dysphagia Gastroesophageal reflux disease with esophagitis without hemorrhage Tachycardia Hiatal hernia with gastroesophageal reflux Present on Admission: Dysphagia Plan: - NPO - Upper GI today - CLD if upper GI looks okay - F/u labs, imaging - Valium for spasms - IV meds only - Continue hot packs/ice packs for shoulder Edited by: Alexis Pagan MD at 10/21/2024 0711 Dispo: Continue Current Level of Care Alexis Pagan MD Cosigned by Jay Cadena MD at 10/21/2024 7:36 PM EDT Associated attestation - Jay Cadena MD - 10/21/2024 7:36 PM EDT The patient was seen and evaluated by me. I agree with the resident assessment and plan. The patient is admitted with dysphagia and likely edema of the fundoplication. I reviewed the CT scan in the upper GI. At this point in time I would recommend expectant management. I have her started on steroids to reduce inflammation. As there is no evidence of leak, abscess or raymond esophageal fluid I think fluids and time are the most appropriate strategy for now * H&P - Alexis Pagan MD - 10/20/2024 2:40 PM EDTAssociated Order(s): Consult to General, Endocrine, Metabolic Surgery (aka [facility]) Images from the original note were not included. [facility] Department of Surgery Division of General, Endocrine, & Metabolic Surgery History & Physical Note Reason for Consult: Decreased fluid intake Requesting Service: Emergency Department Consult Date and Time: 10/20/2024 1300 Consult to General, Endocrine, Metabolic Surgery (aka [facility]) Consult performed by: Alexis Pagan MD Consult ordered by: Santi Wall PA Subjective History of Present Illness: Chief Complaint: difficulty drinking Lois Tinajero is a 54 y.o. female with PMHx significant for HTN, HLD, chronic hyponatremia, GERD, and hiatal hernia s/p laparoscopic hiatal hernia repair with mesh and toupet fundoplication on 10/08/24 who presented to the [facility] on 10/20/2024 with difficulty drinking. She says she tried advancing her diet to full liquids on Monday as instructed. However, by Monday, 10/18 she was having more d ifficulty getting the fluids down. She does not have any difficulty swallowing. However, it feels like the fluids are coming back up into her throat and won't go all the way down through her stomach.She reverted to clear liquids yesterday but continued to have the same problem. It has been increasingly harder to drink an adequate amount due to this. She drank 40 oz yesterday and 15 oz so far to y. She is also experiencing pain down her back after drinking. It feels like a couple minutes of squeezing/spasms and then stops. She says milk is a little bit easier to keep down. She denies any vomiting or nausea. She has had increased burping and hiccuping after drinking liquids. She denies eating any solid food or drinking any carbonated beverages. She denies SOB, chest pain, abdominal pain, constipation, diarrhea, fever, chills, or cough. Her last BM was yesterday. She does not have any difficulty swallowing her spit. She has had constant left shoulder pain since her surgery. She describes it as a constant, aching pain that is relieved by heat. It is not worsened by activity. She has been able to walk about 3,000-3,500 steps per day since surgery. Review of Systems: Relevant review of systems was obtained as able and is negative unless stated above in HPI. History Obtained From: Patient Past Medical History: Past Medical History[1] Allergies And Reactions: Allergies[2] Past Surgical History: Surgical History[3] Family Medical History: Family History[4] Reviewed and Non-contributory Social History: Social History Socioeconomic History Marital status: Spouse name: Not on file Number of children: Not on file Years of education: Not on file Highest education level: Not on file Occupational History Not on file Tobacco Use Smoking status: Never Smokeless tobacco: Never Vaping Use Vaping status: Never Used Substance and Sexual Activity Alcohol use: Not Currently Comment: 1 glass of wine every few months Drug use: Never Sexual activity: Not on file Other Topics Concern Not on file Social History Narrative Not on file Social Drivers of Health Financial Resource Strain: Not on file Food Insecurity: Not on file Transportation Needs: Not on file Physical Activity: Not on file Stress: Not on file Social Connections: Low Risk (09/17/2023) Received from [facility] Family and Community Support Help with Day to Day Activities: Not on file Feeling Lonely or Isolated: Not on file Intimate Partner Violence: Not At Risk (07/23/2024) Received from [facility] Abuse Screen Feels Unsafe at Home or Work/School: no Feels Threatened by Someone: no Does Anyone Try to Keep You From Having Contact with Others or Doing Things Outside Your Home?: no Physical Signs of Abuse Present: no Housing Stability: Unknown (02/20/2023) Received from [facility] Housing Stability Current Living Arrangements: Not on file Potentially Unsafe Housing Conditions: Not on file Immunizations: Immunization History Administered Date(s) Administered Hep A, Adult 09/06/2017, 03/12/2018 Influenza, injectable, MDCK, preservative free, quadrivalent 02/01/2022, 02/02/2023 Influenza, injectable, quadrivalent, preservative free 01/30/2017, 01/25/2018, 01/22/2019, 01/16/2020, 02/03/2021 Influenza, seasonal, injectable, preservative free 02/08/2024 Moderna COVID-19 Vaccine (Vamp Cut Out Worker) 12+ years 07/30/2020, 08/28/2020, 04/28/2021 Moderna COVID-19 Vaccine Bivalent 6months+ 02/01/2022 SARS-CoV-2, Unspecified 07/30/2020, 08/28/2020, 04/28/2021, 02/01/2022 Tdap 10/24/2019 Zoster, Recombinant 05/19/2021, 10/01/2021 Zoster, Unspecified 09/29/2021 I have updated and confirmed the past medical, surgical, family and social history. Home Medications: Prior to Admission medications Medication Sig Start Date End Date Taking? Authorizing Provider [Paused] acetaminophen (Tylenol 8 Hour) 650 MG ER tablet Take 2 tablets by mouth Daily. As needed Wait to take this until your doctor or other care provider tells you to start again. ProviderKerry MD cholecalciferol (Vitamin D3) 25 MCG (1000 UT) tablet Take 1 tablet by mouth daily. ProviderKerry MD [Paused] estradiol (Vivelle-DOT) 0.05 MG/24HR Place 1 patch on the skin 2 times a week. Applied Monday and Monday Wait to take this until your doctor or other care provider tells you to start again. Kerry Antonio MD fluticasone (Flonase) 50 MCG/ACT nasal spray SPRAY TWO SPRAYS IN EACH NOSTRIL ONCE DAILY NEEDED FOR ALLERGIES Kerry Antonio MD HYDROcodone-acetaminophen (Hycet) 7.5-325 MG/15ML solution Take 15 mL by mouth every 6 hours as needed for severe pain (pain). 10/09/24 Swetha Barron MD [Paused] lactobacillus (Culturelle Immunity Support) capsule Take 1 capsule by mouth nightly. Wait to take this until your doctor or other care provider tells you to start again. Kerry Antonio MD metoprolol (Lopressor) 10 mg/mL oral suspension Take 0.625 mL by mouth 2 times a day for 14 days. 10/09/24 10/23/24 Jay Cadena MD [Paused] metoprolol succinate XL (Toprol-XL) 25 MG 24 hr tablet Take 1 tablet (25 mg) by mouth Daily. Patient taking differently: Take 0.5 tablets by mouth Daily. Wait to take this until: October 23, 2024 07/30/24 Kerry Antonio MD ondansetron ODT (Zofran-ODT) 4 MG disintegrating tablet Dissolve 1 tablet on the tongue every 6 hours as needed for nausea or vomiting. 10/09/24 Jay Cadena MD [Paused] progesterone (Prometrium) 100 MG capsule Take 1 tablet by mouth nightly. Wait to take this until your doctor or other care provider tells you to start again. Kerry Antonio MD [Paused] rosuvastatin (Crestor) 20 MG tablet Take 1 tablet by mouth nightly. Wait to take this until your doctor or other care provider tells you to start again. 07/30/24 Kerry Antonio MD simethicone (Mylicon) 20 mg/0.3 mL drops Take 1.2 mL by mouth 4 times a day as needed for flatulence. 10/09/24 Jay Cadena MD Anti-Thrombotic Medications: Is this patient taking warfarin, new oral anti-coagulant, or anti-platelet medication? No If Yes, What Medication: N/A Current Hospital Medications: Current Medications[5] Objective Objective: Visit Vitals BP (!) 152/109 Pulse 89 Temp 36.7 ??C (98 ??F) (Oral) Wt 63.1 kg (139 lb 1.8 oz) SpO2 99% BMI 25.44 kg/m?? @ Physical Exam: Physical Exam Constitutional: General: She is not in acute distress. Appearance: Normal appearance. She is not ill-appearing. HENT: Head: Normocephalic and atraumatic. Right Ear: External ear normal. Left Ear: External ear normal. Nose: Nose normal. Eyes: General: No scleral icterus. Conjunctiva/sclera: Conjunctivae normal. Cardiovascular: Rate and Rhythm: Normal rate and regular rhythm. Pulmonary: Effort: Pulmonary effort is normal. No respiratory distress. Breath sounds: Normal breath sounds. Abdominal: General: There is no distension. Palpations: Abdomen is soft. Tenderness: There is no abdominal tenderness. There is no guarding or rebound. Comments: Laparoscopic incisions covered in glue; healing well Musculoskeletal: General: Normal range of motion. Skin: General: Skin is warm and dry. Neurological: General: No focal deficit present. Mental Status: She is alert and oriented to person, place, and time. Psychiatric: Mood and Affect: Mood normal. Behavior: Behavior normal. Laboratory: CBC WBC 7.20 Hb 12.6 Plt 390 (H) Hct 39.1 ANC 5.98 INR 1.1, PTT ??, Anti-Xa ?? MCV 87 BMP Na 135 (L) Cl 99 BUN 8 Glu 108 (H) K 3.9 Co2 23 Cr 0.71 Ca 9.5 iCa ?? Mg 1.9, Phos 3.6 Lactate ?? LFT AST 17 AlkPhos 79 T Prot 7.7 ALK 18 Bili 0.3 Alb ?? D.Bili ?? Imaging: XR Chest 1 View Result Date: 10/20/2024 No acute findings. CRITICAL RESULT: No. COMMUNICATION: Per this written report. Preliminary report signed by Kristi Lion MD on 10/20/2024 2:[address] ABDOMEN/PELVIS with IV Contrast Narrative & Impression CLINICAL INDICATION: Patient with recent surgery with fundoplication with now having difficulty swallowing TECHNIQUE: Imaging of the abdomen and pelvis was performed, from lung bases through pubic symphysis, using spiral technique, following administration of IV contrast, Omnipaque 300, 100 mL. Delayed (excretory phase) images were performed through the kidneys. Reformatted images in the coronal and sagittal planes were generated from the axial data set to facilitate diagnostic accuracy. Total DLP (Dose-Length Product): 457.25 mGy.cm. Please note: The reported value represents the total of one or more individual components during the CT acquisition on this date and at this time, and as such, the same value may appear in more than one CT report depending on the interpreting/reporting physicians. COMPARISON: August 09, 2024 FINDINGS: Lung Bases: Linear atelectasis in the right lung base. Liver/Gallbladder/Biliary system: The liver demonstrates homogeneous enhancement. Gallbladder surgically absent. No intra- or extra-hepatic biliary ductal dilatation. Spleen: The spleen enhances homogeneously. Pancreas: The pancreas enhances homogeneously. Adrenals: The adrenals are morphologically unremarkable. Kidneys: The kidneys demonstrate symmetric nephrogram and excretion. No renal or ureteral calculi. No hydronephrosis. Bowel/Mesentery: Postsurgical changes of fundoplication. Significant edema of the wrapped stomach resulting in stenosis. 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 The small and large bowel loopsare not dilated. No pneumoperitoneum or intra-abdominal fluid collections. The appendix is not visualized. No right lower quadrant fluid collections or abscess. Vessels/Lymph Nodes: The abdominal aorta is unremarkable. No lymphadenopathy within the abdomen or pelvis. Fluid Survey: No free fluid in the abdomen. No free fluid in the pelvis. Pelvis: No pelvic masses. Mild thickening of the urinary bladder could be secondary to underdistention or cystitis. Body Wall: Normal. Bones: No acute fracture. IMPRESSION: Postsurgical changes of fundoplication. Significant edema of the wrapped stomach resulting in stenosis suggests the possibility of a tight fundoplication. 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 Radiographic Interpretation: I have reviewed the imaging above and agree with the radiologist interpretation. Assessment/Plan Assessment & Plan: Lois Tinajero is a 54 y.o. female with PMHx notable for HTN, HLD, chronic hyponatremia, GERD, and hiatal hernia s/p laparoscopic hiatal hernia repair with mesh and toupet fundoplication on 10/08/24 who presented to the [facility] on 10/20/2024 with difficulty drinking. Medical Problems Problem List Gastroesophageal reflux disease with esophagitis without hemorrhage Tachycardia Hiatal hernia with gastroesophageal reflux - CLD - Upper GI tomorrow - F/u labs, imaging - Valium for spasms - IV meds only - NPO at midnight Dispo: Admit to [facility] CODE STATUS: full code This Consult, Assessment, and Plan has been discussed with Dr. Vila, Attending Physician Alexis Pagan MD [1] Past Medical History: Diagnosis Date Anxiety 2018 in past Arrhythmia fast HR Arthritis Chronic hyponatremia Colon polyp 2008 Diverticulitis of colon 2008 Esophageal dilatation GERD (gastroesophageal reflux disease) Hyperlipidemia Hypertension Rectal bleeding 1999 Sleep apnea Sleep difficulties 2017 [2] Allergies Allergen Reactions Sulfa Drugs Hives [3] Past Surgical History: Procedure Laterality Date CHOLECYSTECTOMY COLONOSCOPY ESOPHAGOGASTRODUODENOSCOPY 03/2024 OTHER SURGICAL HISTORY Bilateral ear tube dilation TUBAL LIGATION [4] Family History Problem Relation Name Age of Onset Cancer Mother Caryn Hyperlipidemia Mother Caryn Arthritis Mother Caryn Heart disease Mother Caryn Cancer Father Clay Hypertension Father Clay Heart attack Maternal Grandfather Farzad Heart disease Maternal Grandfather Farzad Hearing loss Maternal Grandmother Virginie 40 - 49 Stroke Paternal Grandfather Momo [5] No current facility-administered medications for this encounter. Current Outpatient Medications Medication Sig Dispense Refill [Paused] acetaminophen (Tylenol 8 Hour) 650 MG ER tablet Take 2 tablets by mouth Daily. As needed cholecalciferol (Vitamin D3) 25 MCG (1000 UT) tablet Take 1 tablet by mouth daily. [JUL Hold] estradiol (Vivelle-DOT) 0.05 MG/24HR Place 1 patch on the skin 2 times a week. Applied Monday and Monday fluticasone (Flonase) 50 MCG/ACT nasal spray SPRAY TWO SPRAYS IN EACH NOSTRIL ONCE DAILY NEEDED FOR ALLERGIES HYDROcodone-acetaminophen (Hycet) 7.5-325 MG/15ML solution Take 15 mL by mouth every 6 hours as needed for severe pain (pain). 420 mL 0 [Paused] lactobacillus (Culturelle Immunity Support) capsule Take 1 capsule by mouth nightly. metoprolol (Lopressor) 10 mg/mL oral suspension Take 0.625 mL by mouth 2 times a day for 14 days. 18 mL 0 [Paused] metoprolol succinate XL (Toprol-XL) 25 MG 24 hr tablet Take 1 tablet (25 mg) by mouth Daily. (Patient taking differently: Take 0.5 tablets by mouth Daily.) ondansetron ODT (Zofran-ODT) 4 MG disintegrating tablet Dissolve 1 tablet on the tongue every 6 hours as needed for nausea or vomiting. 20 tablet 1 [Paused] progesterone (Prometrium) 100 MG capsule Take 1 tablet by mouth nightly. [Paused] rosuvastatin (Crestor) 20 MG tablet Take 1 tablet by mouth nightly. simethicone (Mylicon) 20 mg/0.3 mL drops Take 1.2 mL by mouth 4 times a day as needed for flatulence. 30 mL 0 Cosigned by Toyin Vila MD at 10/27/2024 4:34 PM EDT * ED Provider Notes - Santi Wall PA - 10/20/2024 11:47 AM EDT Images from the original note were not included. - HPI Chief Complaint Patient presents with Post-op Problem Postop complications Patient is a 54-year-old female who presents to the emergency room with reports that she does have a history of GERD, HTN, HLD, chronic hyponatremia who presents to the emergency room today with reports that she had with Dr. Cadena a fundoplication on 10/08/2024 with now having difficulty swallowing when she goes to drink fluids or to drive a drink broth it feels like it gets stuck in her esophagusin slowly goes down. Patient reports that she also does have pain to the left shoulder and to her back on the left side. Patient also reports it feels like she is having palpitations when this occursand chest pain to the left side of the chest. Patient reports no shortness of air, wheezing or stridor. Patient reports at nighttime she is afraid to try to drink anything due to it possibly coming back up and choking her. Patient reports that it feels like every time she drinks something she is trying to force it down and is slowly trickles down. Patient reports no flank pain or urinary symptoms. Patient reports no headache, visual changes or tinnitus. Patient reports no numbness/tingling weakness. Patient reports no dizziness feeling lightheaded. Patient reports no neck pain or neck stiffness. Patient reports no nausea/vomiting or diarrhea. Patient reports no fever chills. Patient reportsno other problems or complaints. 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 Constitutional: General: She is not in acute distress. Appearance: Normal appearance. She is not ill-appearing, toxic-appearing or diaphoretic. HENT: Head: Normocephalic and atraumatic. Eyes: General: No scleral icterus. Conjunctiva/sclera: Conjunctivae normal. Cardiovascular: Rate and Rhythm: Normal rate and regular rhythm. Pulses: Normal pulses. Heart sounds: Normal heart sounds. No murmur heard. No gallop. Pulmonary: Effort: Pulmonary effort is normal. No respiratory distress. Breath sounds: Normal breath sounds. No stridor. No wheezing, rhonchi or rales. Abdominal: General: Abdomen is flat. There is no distension. Palpations: Abdomen is soft. There is no mass. Tenderness: There is no abdominal tenderness. There is no right CVA tenderness, left CVA tenderness, guarding or rebound. Musculoskeletal: General: No swelling or tenderness. Normal range of motion. Cervical back: Normal range of motion and neck supple. No rigidity. Right lower leg: No edema. Left lower leg: No edema. Skin: General: Skin is warm and dry. Coloration: Skin is not jaundiced or pale. Findings: No bruising. Neurological: General: No focal deficit present. Mental Status: She is alert and oriented to person, place, and time. Sensory: No sensory deficit. Motor: No weakness. Psychiatric: Mood and Affect: Mood normal. Behavior: Behavior normal. No data recorded HEART Score: 2 ED Course & MDM -Patient is a 54-year-old female who presents to the emergency room with reports that she does havea history of GERD, HTN, HLD, chronic hyponatremia who presents to the emergency room today with reports that she had with Dr. Cadena a fundoplication on 10/08/2024 with now having difficulty swallowingwhen she goes to drink fluids or to drive a drink broth it feels like it gets stuck in her esophagus in slowly goes down. Patient reports that she also does have pain to the left shoulder and to her back on the left side. Patient also reports it feels like she is having palpitations when this occurs and chest pain to the left side of the chest. Patient reports no shortness of air, wheezing or stri morena. Patient reports at nighttime she is afraid to try to drink anything due to it possibly coming back up and choking her. Patient reports that it feels like every time she drinks something she is trying to force it down and is slowly trickles down. Did have an interactive discussion with General surgery concerning patient with having recent surgery with now having difficulty swallowing with General surgery reports they will follow up with patient in the ED for further evaluation. General surgery followed up with patient in the ED for further evaluation with recommending patient to be admitted to the services for further treatment evaluation. Patient with labs completed with being nonactionable. Patient with a chest x-ray completed with no acute findings noted per Radiology. Patient witha CT scan to abdomen and pelvis completed with findings per Radiology final read: IMPRESSION: Postsurgical changes of fundoplication. Significant edema of the wrapped stomach resulting in stenosis suggests the possibility of a tight fundoplication. 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 Diddiscuss with patient concerning lab results and CT scan results with patient verbalizing understanding. Did discuss with patient that she will be admitted to surgery with patient verbalized understanding. Patient agrees with plan with no further questions with all questions answered while in the ED. Patient has remained hemodynamically stable while in the ED. patient did declined anything for pain in the ED. Assessment: 54 y.o. female presents to ED with complaint of with having surgery on 10/08/[address] Cadena with a fundoplication with now when she drinks it feels like she is having the force it down with it feels like it is stopping up in her esophagus in slowly trickling down. Patient reports if she lays down she is afraid the food or liquid is going to come back up into her throat and choke her.. It should be noted that the chronic conditions includes hypertension, which currently is not at goal therapy. This complicates the clinical picture because it Comorbidities: increases the amount and complexity of data to be reviewed Differential Diagnosis: Postop pain, difficulty swallowing, among others In order to fully explore the differential diagnosis the following treatments and tests were ordered: ED Medication Administration from 10/20/2024 1147 to 10/20/2024 1521 Date/Time Order Dose Route Action 10/20/2024 1329 EDT sodium chloride 0.9 % infusion 500 mL 500 mL Intravenous New Bag 10/20/2024 1412 EDT iohexol (OMNIPaque) 300 MG/ML injection 100 mL 100 mL Intravenous Given All Other Orders Ordered Status Ordering Provider 10/20/24 1521 Do Not Give Nicotine Replacement Until discontinued Acknowledged ALEXIS PAGAN 10/20/24 1343 PROCEDURE ONCE Canceled SANTI WALL 10/20/24 1521 Mobility Orders Until discontinued Acknowledged ALEXIS PAGAN 10/20/24 1521 Adult diet Diet texture: Clear liquid; Other restriction(s): Fundoplication Clear Liquid Diet effective now Acknowledged ALEXIS PAGAN 10/20/24 1521 Full code Continuous Acknowledged ALEXIS PAGNA M 10/20/24 1521 Notify Provider Until discontinued Acknowledged ALEXIS PAGAN M 10/20/24 1521 Vital Signs Until discontinued Comments: Every 1Hr x4, Then Every 4hrs Thereafter. Acknowledged ALEXIS PAGAN 10/20/24 1521 Intake and Output - Strict Per unit protocol Acknowledged ALEXIS PAGAN M 10/20/24 1521 Neuro checks Until discontinued Comments: Every 1Hr x4, Then Every 4Hrs x6, Then Every 8Hrs Thereafter. Acknowledged QUINNATERALEXIS M 10/20/24 1521 Insert peripheral IV Once Placed in And Linked Group Acknowledged ALEXIS PAGAN M 10/20/24 1521 Saline lock IV Once Placed in And Linked Group Acknowledged QUINNATERALEXIS M 10/20/24 1521 Admit to inpatient Once Acknowledged ALEXIS PAGAN M 10/20/24 1308 Troponin now and 120 min STAT Final result SANTI WALL 10/20/[address] Abdomen Pelvis w IV Contrast Once Final result SANTI WALL 10/20/24 1302 CBC w/diff STAT Final result SANTI WALL 10/20/24 1302 PT-INR STAT Final result SANTI WALL 10/20/24 1302 CMP STAT Final result SANTI WALL 10/20/24 1302 Magnesium STAT Final result SANTI WALL 10/20/24 1302 Phosphorus STAT Final result SANTI WALL 10/20/24 1302 Lipase STAT Final result SANTI WALL 10/20/24 1302 Lactic acid, venous STAT Final result SANTI WALL 10/20/24 1302 Urinalysis with reflex microscopic AND reflex culture (IF UTI SUSPECTED) STAT In process SANTI WALL 10/20/24 1302 Insert peripheral IV Once Acknowledged SANTI WALL 10/20/24 1302 XR Chest 1 View One time imaging Final result SANTI WALL 10/20/24 1302 Urinalysis with reflex microscopic (Culture NOT Included) PROCEDURE ONCE Final result SANTI WALL 10/20/24 1302 Urine Webb Panel PROCEDURE ONCE In process SANTI WALL 10/20/24 1251 Consult to General, Endocrine, Metabolic Surgery (aka [facility]) Once Provider: (Not yet assigned) Completed SANTI WALL 10/20/24 1250 Once Provider: (Not yet assigned) Canceled DUKESANTI ED Course as of 10/20/24 1544 Sun Oct 20, 2024 1540 XR Chest 1 View IMPRESSION: No acute findings. [TN] 1540 CT Abdomen Pelvis w IV Contrast IMPRESSION: Postsurgical changes of fundoplication. Significant edema of the wrapped stomach resulting in stenosis suggests the possibility of a tight fundoplication. 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 [TN] 1540 Ketones, Urine(!): Trace [TN] 1540 Sodium(!): 135 [TN] 1540 Glucose(!): 108 [TN] 1540 Platelet Count(!): 390 [TN] 1540 Lymphocytes Absolute(!): 0.70 [TN] ED Course User Index [TN] Santi Wall PA Clinical Impressions as of 10/20/24 1544 Dysphagia, unspecified type Chest pain, unspecified type Social Determinates of Health Risks (including Economic Stability, Education and level of understanding, Healthcare access and quality and concerning social factors): None identified on this visit Ultimately, this patient was Was admitted (Admission) The primary encounter diagnosis was Dysphagia, unspecified type. A diagnosis of Chest pain, unspecified type was also pertinent to this visit.. Patient believed to require admission for the listed diagnoses. The General Surgery service was consulted for admission and was agreeable to admit to Acute Floor (Med/Surg). ED Prescriptions None Disposition Admit Bed request comments: 6th floor if possible please Admitting/Attending Physician: TOYIN VILA [[id number]] Provider Care Team: JOSE SPEARS [[id number]] Are they the primary team?: Yes [1] - Santi Wall PA 10/20/24 1544 Santi Wall PA 10/20/24 1545 [1] Past Medical History: Diagnosis Date Anxiety 2018 in past Arrhythmia fast HR Arthritis Chronic hyponatremia Colon polyp 2009 Diverticulitis of colon 2008 Esophageal dilatation GERD (gastroesophageal reflux disease) Hyperlipidemia Hypertension Rectal bleeding 1999 Sleep apnea Sleep difficulties 2017 [2] Past Surgical History: Procedure Laterality Date CHOLECYSTECTOMY COLONOSCOPY ESOPHAGOGASTRODUODENOSCOPY 03/2024 OTHER SURGICAL HISTORY Bilateral ear tube dilation TUBAL LIGATION [3] Family History Problem Relation Name Age of Onset Cancer Mother Caryn Hyperlipidemia Mother Caryn Arthritis Mother Caryn Heart disease Mother Caryn Cancer Father Clay Hypertension Father Clay Heart attack Maternal Grandfather Farzad Heart disease Maternal Grandfather Farzad Hearing loss Maternal Grandmother Virginie 40 - 49 Stroke Paternal Grandfather Momo [4] Tobacco Use Smoking status: Never Smokeless tobacco: Never Vaping Use Vaping status: Never Used Substance Use Topics Alcohol use: Not Currently Comment: 1 glass of wine every few months Drug use: Never [5] Allergies Allergen Reactions Sulfa Drugs Hives Santi Wall PA 10/20/24 1545 Cosigned by Lien Oliva MD at 10/20/2024 3:56 PM EDT Associated attestation - Lien Oliva MD - 10/20/2024 3:56 PM EDT The patient was seen only by Advanced Practice Provider (TESSY), and care was reviewed with me. * ED Triage Notes - Mirtha Alejandra, RN - 10/20/2024 11:47 AM EDT Pt with fundoplication and hiatal hernia repair on October 08 and is having difficulty swallowing and pain in her back and shoulder when swallowing as well as weakness and fatigue. States that she was only able to drink 40oz of fluid yesterday and 15oz today. documented in this encounter Plan of Treatment Upcoming Encounters Date Type Department Care Team (Late st Contact Info) Description 12/31/2024 1:15 PM EDT Office Visit [facility] Medicine Specialties [address], [address] [place] [address] Alida Roberts, SENIOR SALES ENGINEER, DNP [address] [place] [address] 02/12/2025 9:30 AM EDT Appointment [facility] [address] [place] [address] 02/12/2025 1:40 PM EDT Office Visit [facility] General Surgery [address], [address] [place] [address] Jay Cadena MD [address] [place] [phone] 04/09/2025 1:00 PM EST Ovarian Cancer Screening [facility] Gynecology [address] [facility], 3rd [place] [address] documented as of this encounter Procedures Procedure Name Priority Date/Time Associated Diagnosis Comments BASIC METABOLIC PANEL, PLASMA Pending Discharge 10/22/2024 2:09 PM EDT FL UPPER GI Routine 10/21/2024 10:36 AM EDT URINALYSIS WITH REFLEX MICROSCOPIC AND CULTURE STAT 10/20/2024 2:23 PM EDT URINE WEBB PANEL STAT 10/20/2024 2:23 PM EDT URINALYSIS WITH REFLEX MICROSCOPIC STAT 10/20/2024 2:[address] ABDOMEN PELVIS W IV CONTRAST STAT 10/20/2024 2:16 PM EDT XR CHEST 1 VIEW STAT 10/20/2024 1:19 PM EDT TROPONIN T, HIGH SENSITIVITY, 0 HOUR, PLASMA, REFLEX TO 2 HOUR STAT 10/20/2024 1:19 PM EDT LACTATE, VENOUS STAT 10/20/2024 1:19 PM EDT PROTHROMBIN TIME(PT) / INR STAT 10/20/2024 1:19 PM EDT CBC WITH AUTO DIFFERENTIAL STAT 10/20/2024 1:19 PM EDT PHOSPHORUS, PLASMA STAT 10/20/2024 1: 19 PM EDT MAGNESIUM, PLASMA STAT 10/20/2024 1:1 9 PM EDT LIPASE, PLASMA STAT 10/20/2024 1:19 PM EDT COMPREHENSIVE METABOLIC PANEL, PLASMA STAT 10/20/2024 1:19 PM EDT documented in this encounter Results * (ABNORMAL) Basic metabolic panel (10/22/2024 2:09 PM EDT) Glucose, Plasma 146(H) 74 - 99 mg/dL 10/22/2024 3:09 PM EDT [facility] BUN, Plasma 13 7 - 21 mg/dL 10/22/2024 3:09 PM EDT [facility] Creatinine, Plasma 0.64 0.60 - 1.10 mg/dL 10/22/2024 3:09 PM EDT [facility] BUN/Creatinine Ratio 20 10/22/2024 3:09 PM EDT [facility] Sodium, Plasma 131(L) 136 - 145 mmol/L 10/22/2024 3:09 PM EDT [facility] Potassium, Plasma 3.8 3.6 - 4.9 mmol/L 10/22/2024 3:09 PM EDT [facility] Chloride, Plasma 97 97 - 107 mmol/L 10/22/2024 3:09 PM EDT [facility] CO2, Plasma 22 22 - 29 mmol/L 10/22/2024 3:09 PM EDT [facility] Anion Gap 12 6 - 16 mmol/L 10/22/2024 3:09 PM EDT [facility] Total Calcium, Plasma 9.4 8.9 - 10.2 mg/dL 10/22/2024 3:09 PM EDT [facility] eGFRcr 104.5 mL/min/1.7 3m*2 10/22/2024 3:09 PM EDT [facility] Comment:Reported eGFRcr in m L/min/1.73m2 is based the CKD-EPI 2020 equation that does not use a race coefficient. Blood Venous blood specimen / Unknown Venipuncture / Unknown 10/22/2024 2:09 PM EDT 10/22/2024 2:32 PM EDT Jay Cadena MD LAB BLOOD ORDERABLES Final Resul t [facility] [address] [place] [id number] * FL Upper GI (10/21/2024 10:36 AM EDT) Anatomical Region Laterality Modality Esophagus, stomach and duodenum Digital Radiography Impressions 10/21/2024 1:10 PM EDT No leak. Small caliber distal esophageal channel with delayed emptying of the esophagus may be secondary to persistent postoperative edema/inflammation, however tight fundoplication is a possibility. CRITICAL RESULT: No. COMMUNICATION: Per this written report. By electronically signing this report, I, the attending physician, attest that I have personally reviewed the images/data for the above examination(s) and agree with the final edited report. Drafted by Ramses Grijalva MD on 10/21/2024 11:30 AM Final report signed by Suzy Rogel MD on 10/21/2024 1:10 PM Narrative 10/21/2024 1:10 PM EDT CLINICAL INDICATION: post fundiplication dysphagia TECHNIQUE: Fluoroscopic evaluation of the upper GI was performed with water soluble contrast. Fluoroscopy Time: 4.0 minutes. COMPARISON: Outside facility upper GI performed September 05, 2024 FINDINGS: Esophagus: Delayed transit of contrast through the esophagus, with narrowing at the lower esophageal channel, at the site of the fundoplication. The distal esophageal channel measures approximately 3 cm. Channel measures a maximum of 3 mm. The fundoplication defect is below the diaphragm. There are tertiary contractions and retropulsion in the distal esophagus. Stomach: Limited evaluation of the stomach, due to minimal progression of contrast, with no definite filling defects. Duodenum: Unremarkable duodenal bulb, with contrast visualized progressing through the duodenal sweep, with prompt transit of contrast into the jejunum. Other: None Procedure Note Suzy Rogel MD - 10/21/2024 CLINICAL INDICATION: post fundiplication dysphagia TECHNIQUE: Fluoroscopic evaluation of the upper GI was performed with water solublecontrast. Fluoroscopy Time: 4.0 minutes. COMPARISON: Outside facility upper GI performed September 05, 2024 FINDINGS: Esophagus: Delayed transit of contrast through the esophagus, withnarrowing at the lower esophageal channel, at the site of thefundoplication. The distal esophageal channel measures approximately 3 cm.Channel measures a maximum of 3 mm. The fundoplication defect is below thediaphragm. There are tertiary contractions and retropulsion in the distalesophagus. Stomach: Limited evaluation of the stomach, due to minimal progression ofcontrast, with no definite filling defects. Duodenum: Unremarkable duodenal bulb, with contrast visualized progressingthrough the duodenal sweep, with prompt transit of contrast into thejejunum. Other: None IMPRESSION: No leak. Small caliber distal esophageal channel with delayed emptying of theesophagus may be secondary to persistent postoperative edema/inflammation,however tight fundoplication is a possibility. CRITICAL RESULT: No. COMMUNICATION: Per this written report. By electronically signing this report, I, the attending physician, andres I have personally reviewed the images/data for the aboveexamination(s) and agree with the final edited report. Drafted by Ramses Grijalva MD on 10/21/2024 11:30 AM Final report signed by Suzy Rogel MD on 10/21/2024 1:10 PM Toyin Vila MD IMG FLUOROSCOPY PROCEDURES Hellen l Result * Urine Webb Panel (10/20/2024 2:23 PM EDT) Extra Reflex urine culture not indicated 10/20/2024 11:01 PM EDT [facility] Comment: Previously prelim verified as Specimen evaluation in progress on 10/20/2024 at 1601 EDT. Previously prelim verified as Specimen evaluation in progress on 10/20/2024 at 1701 EDT. Previously prelim verified as Specimen evaluation in progress on 10/20/2024 at 1801 EDT. Previously prelim verified as Specimen evaluation in progress on 10/20/2024 at 1901 EDT. Previously prelim verified as Specimen evaluation in progress on 10/20/2024 at 2001 EDT. Previously prelim verified as Specimen evaluation in progress on 10/20/2024 at 2101 EDT. Previously prelim verified as Specimen evaluation in progress on 10/20/2024 at 2201 EDT. Urine Urine specimen obtained by clean catch procedure / Unknown Non-blood Collection / Unknown 10/20/2024 2:23 PM EDT 10/20/2024 2:26 PM EDT us Santi DAS LAB URINE ORDERABLES Final Resul t [facility] [address] [place] [address] * (ABNORMAL) Urinalysis with reflex microscopic (Culture NOT Included) (10/20/2024 2:23 PM EDT) Color, Urine Yellow LAB URINALYSIS - AUTOMATED METHOD 10/20/2024 2:29 PM EDT [facility] Clarity, Urine Clear LAB URINALYSIS - AUTOMATED METHOD 10/20/2024 2:29 PM EDT [facility] Spec [place], Urine 1.007 1.005 - 1.030 LAB URINALYSIS - AUTOMATED METHOD 10/20/2024 2:29 PM EDT [facility] pH, Urine 7.0 5.0 - 8.0 LAB URINALYSIS - AUTOMATED METHOD 10/20/2024 2:29 PM EDT [facility] Protein, Urine Negative Negative mg/dL LAB URINALYSIS - AUTOMATED METHOD 10/20/2024 2:29 PM EDT [facility] Glucose, Urine Negative Negative mg/dL LAB URINALYSIS - AUTOMATED METHOD 10/20/2024 2:29 PM EDT [facility] Ketones, Urine Trace(A) Negative mg/dL LAB URINALYSIS - AUTOMATED METHOD 10/20/2024 2:29 PM EDT [facility] Blood, Urine Negative Negative LAB URINALYSIS - AUTOMATED METHOD 10/20/2024 2:29 PM EDT [facility] Bilirubin, Urine Negative Negative LAB URINALYSIS - AUTOMATED METHOD 10/20/2024 2:29 PM EDT [facility] Urobilinogen, Urine 0.2 0.2 to 1.0 mg/dL LAB URINALYSIS - AUTOMATED METHOD 10/20/2024 2:29 PM EDT [facility] Leukocytes, Urine Negative Negative LAB URINALYSIS - AUTOMATED METHOD 10/20/2024 2:29 PM EDT [facility] Nitrite, Urine Negative Negative LAB URINALYSIS - AUTOMATED METHOD 10/20/2024 2:29 PM EDT [facility] Urine Urine specimen obtained by clean catch procedure / Unknown Non-blood Collection / Unknown 10/20/2024 2:23 PM EDT 10/20/2024 2:26 PM EDT S[facility] D[facility] LAB URINE ORDERABLES Final Resul t [facility] [address] [place] [address] * CT Abdomen Pelvis w IV Contrast (10/20/2024 2:16 PM EDT) Anatomical Region Laterality Modality Abdomen, Pelvis Computed Tomogra phy Impressions 10/20/2024 2:49 PM EDT Postsurgical changes of fundoplication. Significant edema of the wrapped stomach resulting in stenosis suggests the possibility of a tight fundoplication. 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 CRITICAL RESULT: No. COMMUNICATION: Per this written report. Drafted by Becca Javier MD on 10/20/2024 2:42 PM Final report signed by Becca Javier MD on 10/20/2024 2:49 PM Narrative 10/20/2024 2:49 PM EDT CLINICAL INDICATION: Patient with recent surgery with fundoplication with now having difficulty swallowing TECHNIQUE: Imaging of the abdomen and pelvis was performed, from lung bases through pubic symphysis, using spiral technique, following administration of IV contrast, Omnipaque 300, 100 mL. Delayed (excretory phase) images were performed through the kidneys. Reformatted images in the coronal and sagittal planes were generated from the axial data set to facilitate diagnostic accuracy. Total DLP (Dose-Length Product): 457.25 mGy.cm. Please note: The reported value represents the total of one or more individual components during the CT acquisition on this date and at this time, and as such, the same value may appear in more than one CT report depending on the interpreting/reporting physicians. COMPARISON: August 09, 2024 FINDINGS: Lung Bases: Linear atelectasis in the right lung base. Liver/Gallbladder/Biliary system: The liver demonstrates homogeneous enhancement. Gallbladder surgically absent. No intra- or extra-hepatic biliary ductal dilatation. Spleen: The spleen enhances homogeneously. Pancreas: The pancreas enhances homogeneously. Adrenals: The adrenals are morphologically unremarkable. Kidneys: The kidneys demonstrate symmetric nephrogram and excretion. No renal or ureteral calculi. No hydronephrosis. Bowel/Mesentery: Postsurgical changes of fundoplication. Significant edema of the wrapped stomach resulting in stenosis. 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 The small and large bowel loops are not dilated. No pneumoperitoneum or intra-abdominal fluid collections. The appendix is not visualized. No right lower quadrant fluid collections or abscess. Vessels/Lymph Nodes: The abdominal aorta is unremarkable. No lymphadenopathy within the abdomen or pelvis. Fluid Survey: No free fluid in the abdomen. No free fluid in the pelvis. Pelvis: No pelvic masses. Mild thickening of the urinary bladder could be secondary to underdistention or cystitis. Body Wall: Normal. Bones: No acute fracture. Procedure Note Becca Javier MD - 10/20/2024 CLINICAL INDICATION: Patient with recent surgery with fundoplication with now having difficultyswallowing TECHNIQUE: Imaging of the abdomen and pelvis was performed, from lung bases throughpubic symphysis, using spiral technique, following administration of IVcontrast, Omnipaque 300, 100 mL. Delayed (excretory phase) images wereperformed through the kidneys. Reformatted images in the coronal andsagittal planes were generated from the axial data set to facilitatediagnostic accuracy. Total DLP (Dose-Length Product): 457.25 mGy.cm. Please note: The reportedvalue represents the total of one or more individual components during theCT acquisition on this date and at this time, and as such, the same valuemay appear in more than one CT report depending on theinterpreting/reporting physicians. COMPARISON: August 09, 2024 FINDINGS: Lung Bases: Linear atelectasis in the right lung base. Liver/Gallbladder/Biliary system: The liver demonstrates homogeneousenhancement. Gallbladder surgically absent. No intra- or extra-hepaticbiliary ductal dilatation. Spleen: The spleen enhances homogeneously. Pancreas: The pancreas enhances homogeneously. Adrenals: The adrenals are morphologically unremarkable. Kidneys: The kidneys demonstrate symmetric nephrogram and excretion. Norenal or ureteral calculi. No hydronephrosis. Bowel/Mesentery: Postsurgical changes of fundoplication. Significant edemaof the wrapped stomach resulting in stenosis. There is resultant achalasiaof the esophagus. The small and large bowel loops are not dilated. Nopneumoperitoneum or intra-abdominal fluid collections. The appendix is notvisualized. No right lower quadrant fluid collections or abscess. Vessels/Lymph Nodes: The abdominal aorta is unremarkable. Nolymphadenopathy within the abdomen or pelvis. Fluid Survey: No free fluid in the abdomen. No free fluid in the pelvis. Pelvis: No pelvic masses. Mild thickening of the urinary bladder could besecondary to underdistention or cystitis. Body Wall: Normal. Bones: No acute fracture. IMPRESSION: Postsurgical changes of fundoplication. Significant edema of the wrappedstomach resulting in stenosis suggests the possibility of a tightfundoplication. 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 CRITICAL RESULT: No. COMMUNICATION: Per this written report. Drafted by Becca Javier MD on 10/20/2024 2:42 PM Final report signed by Becca Javier MD on 10/20/2024 2:49 [address] DAS [address] PROCEDURES Final Result * XR Chest 1 View (10/20/2024 1:19 PM EDT) Anatomical Region Laterality Modality Chest Digital Radiogra phy Impressions 10/20/2024 3:23 PM EDT No acute findings. CRITICAL RESULT: No. COMMUNICATION: Per this written report. Preliminary report signed by Kristi Lion MD on 10/20/2024 2:19 PM By electronically signing this report, I, the attending physician, attest that I have personally reviewed the images/data for the above examination(s) and agree with the final edited report. Drafted by Kristi Lion MD on 10/20/2024 2:18 PM Final report signed by Becca Javier MD on 10/20/2024 3:23 PM Narrative 10/20/2024 3:23 PM EDT CLINICAL INDICATION: difficulty swallowing TECHNIQUE: XR CHEST 1 VIEW COMPARISON: None. FINDINGS: Cardiac silhouette and mediastinal contours are within normal limits. No consolidation, pleural effusion or pneumothorax. No acute osseous findings. Procedure Note Becca Javier MD - 10/20/2024 CLINICAL INDICATION: difficulty swallowing TECHNIQUE: XR CHEST 1 VIEW COMPARISON: None. FINDINGS: Cardiac silhouette and mediastinal contours are within normal limits. Noconsolidation, pleural effusion or pneumothorax. No acute osseousfindings. IMPRESSION: No acute findings. CRITICAL RESULT: No. COMMUNICATION: Per this written report. Preliminary report signed by Kristi Lion MD on 10/20/2024 2:19 PM By electronically signing this report, I, the attending physician, attestthat I have personally reviewed the images/data for the aboveexamination(s) and agree with the final edited report. Drafted by Kristi Lion MD on 10/20/2024 2:18 PM Final report signed by Becca Javier MD on 10/20/2024 3:23 PM us Santi ADS IMG XR PROCEDURES Final Result * Troponin now and 120 min (10/20/2024 1:19 PM EDT) Troponin T, High Sensitivity, 0 Hour <6 <14 ng/L 10/20/2024 1:43 PM EDT [facility] Blood Venous blood specimen / Unknown Venipuncture / Unknown 10/20/2024 1:19 PM EDT 10/20/2024 1:21 PM EDT us Santi [facility] LAB BLOOD ORDERABLES Final Resul t Performing Organization Address [facility] Co de Phone Number [facility] [address] [place] [address] * Lactic acid, venous (10/20/2024 1:19 PM EDT) Pathologist [facility] Lactate, Venous, Whole Blood 0.7 0.5 - 2.2 mmol/L LAB HEMATOLOGY METHOD 10/20/2024 1:24 PM EDT [facility] Blood Venous blood specimen / Unknown Venipuncture / Unknown 10/20/2024 1:19 PM EDT 10/20/2024 1:22 PM EDT us Santi DAS LAB BLOOD ORDERABLES Final Resul t Performing Organization Address [facility] de Phone Number [facility] [address] [place] [address] * Lipase (10/20/2024 1:19 PM EDT) Pathologist [facility] Lipase, Plasma 61 19 - 63 U/L 10/20/2024 1:43 PM EDT [facility] Blood Venous blood specimen / Unknown Venipuncture / Unknown 10/20/2024 1:19 PM EDT 10/20/2024 1:21 PM EDT us Santi [facility] LAB BLOOD ORDERABLES Final Resul t Performing Organization Address [facility] Center/[facility] Co de Phone Number [facility] [address] [place] [address] * Phosphorus (10/20/2024 1:19 PM EDT) Pathologist [facility] Phosphorus, Plasma 3.6 2.5 - 4.5 mg/dL 10/20/2024 1:43 PM EDT [facility] Blood Venous blood specimen / Unknown Venipuncture / Unknown 10/20/2024 1:19 PM EDT 10/20/2024 1:21 PM EDT [facility] [place] LAB BLOOD ORDERABLES Final Resul t Performing Organization Address City/[facility] Co de Phone Number [facility]ALTHCARE [facility] [address] [place] [address] * Magnesium (10/20/2024 1:19 PM EDT) [facility] Magnesium, Plasma 1.9 1.9 - 2.4 mg/dL 10/20/2024 1:43 PM EDT [facility]ALTHCARE [facility] Blood Venous blood specimen / Unknown Venipuncture / Unknown 10/20/2024 1:19 PM EDT 10/20/2024 1:21 PM EDT [employer] [place] LAB BLOOD ORDERABLES Final Resul t Performing Organization Address [facility] Phone Number HEALTHCARE [facility] [address] [place] [address] * (ABNORMAL) CMP (10/20/2024 1:19 PM EDT) Pathologist [facility] Glucose, Plasma 108(H) 74 - 99 mg/dL 10/20/2024 1:43 PM EDT [facility] BUN, Plasma 8 7 - 21 mg/dL 10/20/2024 1:43 PM EDT [facility] Creatinine, Plasma 0.71 0.60 - 1.10 mg/dL 10/20/2024 1:43 PM EDT [facility] BUN/Creatinine Ratio 11 10/20/2024 1:43 PM EDT [facility] Sodium, Plasma 135(L) 136 - 145 mmol/L 10/20/2024 1:43 PM EDT [facility] Potassium, Plasma 3.9 3.6 - 4.9 mmol/L 10/20/2024 1:43 PM EDT [facility] Chloride, Plasma 99 97 - 107 mmol/L 10/20/2024 1:43 PM EDT [facility] CO2, Plasma 23 22 - 29 mmol/L 10/20/2024 1:43 PM EDT [facility] Anion Gap 13 6 - 16 mmol/L 10/20/2024 1:43 PM EDT [facility] Total Calcium, Plasma 9.5 8.9 - 10.2 mg/dL 10/20/2024 1:43 PM EDT [facility] Total Protein 7.7 6.3 - 7.9 g/dL 10/20/2024 1:43 PM EDT [facility] Albumin, Plasma 4.5 3.5 - 5.2 g/dL 10/20/2024 1:43 PM EDT [facility] AST, Plasma 17 10 - 35 U/L 10/20/2024 1:43 PM EDT [facility] ALT, Plasma 18 10 - 35 U/L 10/20/2024 1:43 PM EDT [facility] Alkaline Phosphatase, Plasma 79 35 - 104 U/L 10/20/2024 1:43 PM EDT [facility] Total Bilirubin, Plasma 0.3 0.2 - 1.1 mg/dL 10/20/2024 1:43 PM EDT [facility] eGFRcr 100.6 mL/min/1.7 3m*2 10/20/2024 1:43 PM EDT [facility] Comment:Reported eGFRcr in m L/min/1.73m2 is based the CKD-EPI 2020 equation that does not use a race coefficient. Blood Venous blood specimen / Unknown Venipuncture / Unknown 10/20/2024 1:19 PM EDT 10/20/2024 1:21 PM EDT us Santi DAS LAB BLOOD ORDERABLES Final Resul t [facility] [address] [place] [address] * PT-INR (10/20/2024 1:19 PM EDT) Prothrombin Time 14.0 12.0 - 14.3 sec 10/20/2024 1:33 PM EDT [facility] INR 1.1 0.9 - 1.1 10/20/2024 1:33 PM EDT [facility] Blood Venous blood specimen / Unknown Venipuncture / Unknown 10/20/2024 1:19 PM EDT 10/20/2024 1:21 PM EDT Narrative HEALTHCARE LAB - 10/20/2024 1:33 PM EDT OPTIMAL INR RANGES FOR PATIENT ON ORAL ANTICOAGULANT THERAPY Prevention of venous thromboembolism INR 2.0 to 3.0 In patients with heart disease: Atrial fibrillation INR 2.0 to 3.0 Valvular heart disease INR 2.0 to 3.0 Tissue heart valves INR 2.0 to 3.0 Mechanical prosthetic valves INR 2.5 to 3.5 Prevention of recurrent ID INR 2.5 to 3.5 Santi DAS LAB BLOOD ORDERABLES Final Resul t [facility] [address] [place] [address] * (ABNORMAL) CBC w/diff (10/20/2024 1:19 PM EDT) [facility] WBC Count 7.20 3.70 - 10.30 10*3/uL LAB HEMATOLOGY METHOD 10/20/2024 1:24 PM EDT [facility] RBC Count 4.52 3.90 - 5.20 10*6/uL LAB HEMATOLOGY METHOD 10/20/2024 1:24 PM EDT [facility] HGB 12.6 11.2 - 15.7 g/dL LAB HEMATOLOGY METHOD 10/20/2024 1:24 PM EDT [facility] HCT 39.1 34.0 - 45.0 % LAB HEMATOLOGY METHOD 10/20/2024 1:24 PM EDT [facility] Platelet Count 390(H) 155 - 369 10*3/uL LAB HEMATOLOGY METHOD 10/20/2024 1:24 PM EDT [facility] MCV 87 79 - 98 fL LAB HEMATOLOGY METHOD 10/20/2024 1:24 PM EDT [facility] MCH 27.9 26.0 - 32.0 pg LAB HEMATOLOGY METHOD 10/20/2024 1:24 PM EDT [facility] MCHC 32.2 30.7 - 35.5 g/dL LAB HEMATOLOGY METHOD 10/20/2024 1:24 PM EDT [facility] RDW 12.7 11.5 - 14.5 % LAB HEMATOLOGY METHOD 10/20/2024 1:24 PM EDT [facility] MPV 9.9 8.8 - 12.5 fL LAB HEMATOLOGY METHOD 10/20/2024 1:24 PM EDT [facility] nRBC 0.0 <=0.0 per 100 WBCs LAB HEMATOLOGY METHOD 10/20/2024 1:24 PM EDT [facility] Differential Type Automated LAB HEMATOLOGY METHOD 10/20/2024 1:24 PM EDT [facility] Neutrophils % 83 % LAB HEMATOLOGY METHOD 10/20/2024 1:24 PM EDT [facility] Lymphocytes % 10 % LAB HEMATOLOGY METHOD 10/20/2024 1:24 PM EDT [facility] Monocytes % 5 % LAB HEMATOLOGY METHOD 10/20/2024 1:24 PM EDT [facility] Eosinophils % 1 % LAB HEMATOLOGY METHOD 10/20/2024 1:24 PM EDT [facility] Basophils % 1 % LAB HEMATOLOGY METHOD 10/20/2024 1:24 PM EDT [facility] Immature Granulocytes % 0 % LAB HEMATOLOGY METHOD 10/20/2024 1:24 PM EDT [facility] Neutrophils Absolute 5.98 1.60 - 6.10 10*3/uL LAB HEMATOLOGY METHOD 10/20/2024 1:24 PM EDT [facility] Lymphocytes Absolute 0.70(L) 1.20 - 3.90 10*3/uL LAB HEMATOLOGY METHOD 10/20/2024 1:24 PM EDT [facility] Monocytes Absolute 0.36 0.30 - 0.90 10*3/uL LAB HEMATOLOGY METHOD 10/20/2024 1:24 PM EDT [facility] Eosinophils Absolute 0.10 0.00 - 0.50 10*3/uL LAB HEMATOLOGY METHOD 10/20/2024 1:24 PM EDT [facility] Basophils Absolute 0.04 0.00 - 0.10 10*3/uL LAB HEMATOLOGY METHOD 10/20/2024 1:24 PM EDT [facility] Immature Granulocytes Absolute 0.02 0.00 - 0.06 10*3/uL LAB HEMATOLOGY METHOD 10/20/2024 1:24 PM EDT [facility] Blood Venous blood specimen / Unknown Venipuncture / Unknown 10/20/2024 1:19 PM EDT 10/20/2024 1:21 PM EDT Narrative [facility] - 10/20/2024 1:24 PM EDT Therapeutic decision making should be based on absolute values, rather than percentages. Santi DAS LAB BLOOD ORDERABLES Final Resul t [facility] [address] [place] [address] documented in this encounter Visit Diagnoses Diagnosis Dysphagia- Primary Dysphagia, unspecified type Chest pain, unspecified type documented in this encounter Admitting Diagnoses Diagnosis Dysphagia documented in this encounter Administered Medications Inactive Administered Medications - up to 3 most recent administrations Medication Order MAR Action Action Date Dose Rate Site acetaminophen (Tylenol) 160 MG/5ML solution 640 mg 640 mg, Oral, Every 6 hours PRN, Starting on Mon10/20/24 at 1802, Until Mon10/23/24 at 1249, Routine, mild pain, moderate pain Given 10/23/2024 8:47 AM EDT 640 mg Given 10/22/2024 9:28 PM EDT 640 mg Given 10/22/2024 6:41 AM EDT 640 mg diazePAM (Valium) injection 2.5 mg 2.5 mg, Intravenous, Every 4 hours PRN, Starting on Mon10/20/24 at 1756, Until Mon10/23/24 at 1249, Routine, muscle spasms heparin (porcine) injection 5,000 Units 5,000 Units, Subcutaneous, Every 8 hours scheduled, First dose on Mon10/20/24 at 1525, Until Discontinued, Routine Given 10/23/2024 6:44 AM EDT 5,000 Units Left Upper Arm (Back ) Given 10/22/2024 9:29 PM EDT 5,000 Units L eft Upper Arm (Back) Given 10/22/2024 2:57 PM EDT 5,000 Units L eft Lower Abdomen HYDROcodone-acetaminophen (Hycet) 7.5-325 MG/15ML solution 5 mg of hydrocodone 5 mg of hydrocodone, Oral, Every 6 hours PRN, Starting on Mon10/20/24 at 1530, Until Mon10/23/24 at 1249, Routine, severe pain Given 10/20/2024 10:03 PM EDT 5 mg of hydrocodone iohexol (OMNIPaque) 300 MG/ML injection 100 mL 100 mL, Intravenous, Once in imaging, 1 dose, Starting on Mon10/20/24 at 1335, Until Mon10/20/24 at 1412, Routine, Imaging Protocol Orders Given 10/20/2024 2:12 PM EDT 100 mL iohexol (OMNIPaque) 350 MG/ML injection 100 mL 100 mL, Oral, Once in imaging, 1 dose, Starting on Mon10/21/24 at 0946, Until Mon10/21/24 at 1037, Routine, Imaging Protocol Orders Given 10/21/2024 10:37 AM EDT 100 mL lactated Ringer's infusion 50 mL/hr, Intravenous, Continuous, Starting on Mon10/20/24 at 1525, Until Mon10/22/24 at 1851, Routine New Bag 10/22/2024 12:49 PM EDT 50 mL/hr 50 mL/hr New Bag 10/21/2024 12:23 PM EDT 50 mL/hr 50 mL/hr Rate/Dose Verify 10/21/2024 8:01 AM EDT 50 mL/hr 50 mL/h r methylPREDNISolone sodium succinate (PF) (SOLU-Medrol) injection 40 mg 40 mg, Intravenous, Every 8 hours, 6 doses, First dose (after last modification) on Mon10/21/24 at 1545, Last dose on Mon10/23/24 at 0745, Routine Given 10/23/2024 6:45 AM EDT 40 mg Given 10/23/2024 12:16 AM EDT 40 mg Given 10/22/2024 2:56 PM EDT 40 mg metoprolol tartrate (Lopressor) 1.3 mg in sodium chloride 0.9 % 50 mL IVPB 1.3 mg (rounded from 1.25 mg), Intravenous, Every 6 hours, First dose on Mon10/21/24 at 0000, Until Discontinued, Administer over 15 Minutes, Routine New Bag 10/23/2024 6:42 AM EDT 1.3 mg 225.2 mL/hr New Bag 10/23/2024 12:16 AM EDT 1.3 mg 225.2 mL/hr New Bag 10/22/2024 6:25 PM EDT 1.3 mg 225.2 mL/hr ondansetron (Zofran) injection 4 mg 4 mg, Intravenous, Every 6 hours PRN, Starting on Mon10/20/24 at 1521, Until Mon10/23/24 at 1249, Routine, vomiting, nausea sodium chloride 0.9 % flush 10 mL 10 mL, Intravenous, Every 12 hours, First dose on Mon10/20/24 at 1525, Until Discontinued, Routine Given 10/23/2024 3:45 AM EDT 10 mL Given 10/22/2024 2:57 PM EDT 10 mL Given 10/22/2024 3:41 AM EDT 10 mL sodium chloride 0.9 % flush 10 mL 10 mL, Intravenous, As needed, Starting on Mon10/20/24 at 1515, Until Mon10/23/24 at 1249, Routine, line care sodium chloride 0.9 % infusion 500 mL 500 mL, Intravenous, Once, 1 dose, On Mon10/20/24 at 1305, STAT New Bag 10/20/2024 1:29 PM EDT 500 mL documented in this encounter Active and Recently Administered Medications Times are shown in EDT. Scheduled Medication Order 10/21/2024 10/22/2024 10/23/2024 heparin (porcine) injection 5,000 Units 5,000 Units, Subcutaneous, Every 8 hours scheduled, First dose on Mon10/20/24 at 1525, Until Discontinued, Routine 0606 (Given - Provider: [place] Fowler)1512 (Given - Provider: Clif Loza, ELIZABETH)2135 (Given - Provider: Katheryn Fowler) 0624 (Given - Provider: Katheryn Fowler)1457 (Given - Provider: Clif Loza, ELIZABETH)2129 (Given - Provider: [place]) 0644 (Given - Provider: [place] Fowler) iohexol (OMNIPaque) 350 MG/ML injection 100 mL (COMPLETED) 100 mL, Oral, Once in imaging, 1 dose, Starting on Mon10/21/24 at 0946, Until Mon10/21/24 at 1037, Routine, Imaging Protocol Orders 1037 (Given - Provider: Tanisha Villagran) methylPREDNISolone sodium succinate (PF) (SOLU-Medrol) injection 40 mg (COMPLETED) 40 mg, Intravenous, Every 8 hours, 6 doses, First dose (after last modification) on Mon10/21/24 at 1545, Last dose on Mon10/23/24 at 0745, Routine 1511 (Given - Provider: Clif Loza RN) 0108 (Given - Provider: Katheryn Fowler)0847 (Given - Provider: Clif Loza, ELIZABETH)1456 (Given - Provider: Clif Loza, ELIZABETH) 0016 (Given - Provider: Katheryn Fowler)0645 (Given - Provider: [place]) metoprolol tartrate (Lopressor) 1.3 mg in sodium chloride 0.9 % 50 mL IVPB 1.3 mg (rounded from 1.25 mg), Intravenous, Every 6 hours, First dose on Mon10/21/24 at 0000, Until Discontinued, Administer over 15 Minutes, Routine 0002 (New Bag - Provider: [place] Fowler)0607 (New Bag - Provider: Katheryn Fowler)1223 (New Bag - Provider: Clif Loza, ELIZABETH)1850 (New Bag - Provider: Clif Loza, ELIZABETH) 0108 (New Bag - Provider: Katheryn Fowler)0622 (New Bag - Provider: Katheryn Fowler)1249 (New Bag - Provider: Clif Loza, ELIZABETH)1825 (New Bag - Provider: Clif Loza, ELIZABETH) 0016 (New Bag - Provider: Katheryn Fowler)0642 (New Bag - Provider: Katheryn Fowler)1200 (Canceled Entry - Provider: Automatic Discharge Provider - Comment: Automatically canceled at discontinue of medication order) sodium chloride 0.9 % flush 10 mL(Linked Group 1) 10 mL, Intravenous, Every 12 hours, First dose on Mon10/20/24 at 1525, Until Discontinued, Routine 0319 (Given - Provider: Katheryn Fowler)1527 (Not Given - Provider: Clif Loza RN - Reason: Hold for condition: must add comment - Comment: Maintenance fluids running) 0341 (Given - Provider: Katheryn Fowler)1457 (Given - Provider: Clif Loza, ELIZABETH) 0345 (Given - Provider: [place]) Continuous Medication Order 10/21/2024 10/22/2024 10/23/2024 lactated Ringer's infusion (CANCELED) 50 mL/hr, Intravenous, Continuous, Starting on Mon10/20/24 at 1525, Until Mon10/22/24 at 1851, Routine 0801 (Rate/Dose Verify - Provider: Clif Loza RN)1223 (New Bag - Provider: Clif Loza, ELIZABETH) 1249 (New Bag - Provider: Clif Loza RN) PRN Medication Order 10/21/2024 10/22/2024 10/23/2024 acetaminophen (Tylenol) 160 MG/5ML solution 640 mg 640 mg, Oral, Every 6 hours PRN, Starting on 10/20/24 at 1802, Until Mon10/23/24 at 1249, Routine, mild pain, moderate pain 1125 (Given - Provider: Clif Loza RN)2135 (Given - Provider: [place]) 0641 (Given - Provider: Katheryn Fowler)2128 (Given - Provider: [place]) 0847 (Given - Provider: Clif Loza RN) diazePAM (Valium) injection 2.5 mg 2.5 mg, Intravenous, Every 4 hours PRN, Starting on 10/20/24 at 1756, Until Mon10/23/24 at 1249, Routine, muscle spasms HYDROcodone-acetaminop hen (Hycet) 7.5-325 MG/15ML solution 5 mg of hydrocodone 5 mg of hydrocodone, Oral, Every 6 hours PRN, Starting on 10/20/24 at 1530, Until Mon10/23/24 at 1249, Routine, severe pain ondansetron (Zofran) injection 4 mg 4 mg, Intravenous, Every 6 hours PRN, Starting on 10/20/24 at 1521, Until Mon10/23/24 at 1249, Routine, vomiting, nausea 1133 (Return to Cabinet - Provider: Clif Loza RN) sodium chloride 0.9 % flush 10 mL(Linked Group 1) 10 mL, Intravenous, As needed, Starting on 10/20/24 at 1515, Until Mon10/23/24 at 1249, Routine, line care Linked Groups Order Group 1: Insert peripheral IV (CANCELED) Once, On 10/20/24 at 1516, For 1 occurrence And Saline lock IV (CANCELED) Once, On 10/20/24 at 1516, For 1 occurrence And sodium chloride 0.9 % flush 10 mLJump to med 10 mL, Intravenous, Every 12 hours, First dose on 10/20/24 at 1525, Until Discontinued, Routine And sodium chloride 0.9 % flush 10 mLJump to med 10 mL, Intravenous, As needed, Starting on 10/20/24 at 1515, Until 10/23/24 at 1249, Routine, line care documented in this encounter Additional Health Concerns Assessment Noted Time PHQ-9 Depression Total Score: 0 09/17/19 12:48 PM EDT A fall risk assessment has been complete d for the patient 09/16/2024 12:48 PM EDT A Body Mass Index follow-up plan has been documented for the patient 10/23/2024 9:00 AM EDT documented as of this encounter Care Teams Carpenter Supervisor Wooden Ship Relationship Specialty Start Date End Date Jeferson Simental MD [address] [place] [id number] PCP - General Family Medicine 09/16/24 documented as of this encounter
--- OUTSIDE RECORDS SUMMARY | 2024-11-13 09:10 | XMS_ITS | Encounter Summary ---
Author Organization Healthcare Address [address] [place] [address] Care Team Providers Care Saturation Equipment Operator Name Role Phone Jeferson Simental MD Primary Care Provider [phone] Reason for Referral * Imaging (Routine) - Pending Review Specialty Diagnoses / Procedures Referred By Contac t Referred To Contact Radiology Diagnoses Gastroesophageal reflux disease with esophagitis without hemorrhage Procedures [place] Upper GI Jay Cadena MD [address] [address] Phone: tel: fax: Referral ID Status Reason Start Date Expiration Date Visits Requested Visits Authorized [id number] Pending Review Perform Procedure 11/13/2024 05/15/2026 1 1 Reason for Visit * Reason Comments Post-op Encounter Details Date Type Department Care Team (Late st Contact Info) Description 11/13/2024 9:10 AM EDT [facility] [address], [address] [place] [address] Jay Cadena MD [address] [address] Hiatal hernia with gastroesophageal reflux (Primary Dx); Gastroesophageal reflux disease with esophagitis without hemorrhage Social History Tobacco Use Types Packs/Day Years [...] any time in the past 12 m [facility], were you homeless or living in a senior care (including now)? No 10/21/2024 Utilities Answer Date Recorded In the past 12 months has th e electric, gas, oil, or water company threatened to shut off services in your home? No 10/21/2024 Comments No Sex and Gender Information Value Date Recorded Sex Assigned at Not on file Legal Sex Female 6:10 PM EDT Gender Identity Not on file Sexual Orientation Not on file documented as of this encounter Last Filed Vital Signs Vital Sign Reading Time Taken Comments Blood Pressure 133/88 11/13/2024 8:49 AM EDT Pulse 65 11/13/2024 8:49 AM EDT Temperature 36.2 C (97.1 F) 11/13/2024 8:49 AM EDT Respiratory Rate 16 11/13/2024 8:49 AM EDT Oxygen Saturation 98% 11/13/2024 8:49 AM EDT Inhaled Oxygen Concentration - - Weight 62.5 kg (137 lb 11.2 oz) 11/13/2024 8:49 AM EDT Height 157.5 cm (5' 2.01 ) 11/13/2024 8:49 AM ED T Body Mass Index 25.18 11/13/2024 8:49 AM EDT documented in this encounter Miscellaneous Notes * Progress Notes - Daria Kaiser T - 11/13/2024 9:10 AM EDT Subjective Lois Dooley is a 54 y.o. female presenting 5 weeks post op from laparoscopic Hiatal hernia repair and Toupet Fundoplication on 10/08/24. PEG not required. Following surgery, she was hospitalized for 3 days for dysphagia. Upper GI showed delayed emptying of the esophagus 2/2 post-op edema, symptoms resolved with short course of steroids. Patient endorses that she continues to have retrosternal burning associated with intake, burping with all meals, bloating/gas that is worse in the evening. Her gas and bloating do not improve with simethicone. Endorses referred L shoulder pain and L subcostal pain that is controlled with tylenol. Symptoms are improved compared to before surgery. Patient denies constipation, nausea and vomiting. Patient reports pain scale of 4, reports quality when occurs as aching, in a intermittent nature. Current diet: currently tolerating soft diet. Vital signs and medications were reviewed. 11/13/2024 9:57 AM GERD Questionnaire Patient Status: Post operative - 1st visit Have you had surgery in the past for hiatal hernia or reflux? Y Heartburn Y Severity 6 Regurgitation N Trouble swallowing solid foods Y Severity 4 Trouble swallowing liquids N Painful swallowing N Nausea N Vomiting N Bloating Y Severity 10 Epigastric/abdominal pain N Hoarseness N Chronic Cough N Diarrhea N Constipation Y Severity 6 Are you currently taking any antacid medications (proton pump inhibitors, H2 blockers, [id number] preparations)? N Please select the type of diet you are currently eating or write in if none of the types of diets listed apply to you: Soft diet to avoid difficulty swallowing hard foods Do you drink carbonated beverages (Coke, Sprite, etc.)? N How often do you usually have a bowel movement? 3x/week Current Medications[1] Allergies[2] Objective Physical Exam Visit Vitals BP 133/88 (BP Location: Right arm, Patient Position: Sitting) Pulse 65 Temp (!) 36.2 ??C (97.1 ??F) (Temporal) Ht 1.575 m (5' 2.01 ) Wt 62.5 kg (137 lb 11.2 oz) SpO2 98% BMI 25.18 kg/m?? Constitutional: well developed, well nourished, and in no acute distress Psychiatric: oriented to time, place and person, mood and affect are within normal limits Abdomen: Soft, flat, non-tender Incision: port sites; healing well. PEG tube: N/A. Assessment/Plan Problem List Items Addressed This Visit Respiratory Hiatal hernia with gastroesophageal reflux - Primary Digestive Gastroesophageal reflux disease with esophagitis without hemorrhage Relevant Orders [place] Upper GI [id number], 54 y.o., s/p laparoscopic Toupet fundoplication with hiatal hernia repair with a(n) fairoutcome. Follow up options in 3 months with an UGI for evaluation of post-operative anatomy. Pt Instructions: Avoid lifting greater than 25 lbs Okay to walk on the treadmill Dariarenee Kaiser MS4 [1] Current Outpatient Medications Medication Sig Dispense Refill acetaminophen (Tylenol) 160 MG/5ML solution Take 20 mL by mouth every 6 hours as needed for pain. 120 mL 0 cholecalciferol (Vitamin D3) 25 MCG (1000 UT) tablet Take 1 tablet by mouth daily. [Jul] estradiol (Vivelle-DOT) 0.05 MG/24HR Place 1 patch on the skin 2 times a week. Applied Monday and Monday estradiol-norethindrone (Combipatch) 0.05-0.14 MG/DAY Place 1 patch on [...] capsule Take 1 capsule by mouth nightly. [Paused] metoprolol succinate XL (Toprol-XL) 25 MG 24 hr tablet Take 0.5 tablets by mouth daily. Crush pill to to take 15 tablet 0 ondansetron ODT (Zofran-ODT) 4 MG disintegrating tablet [...] as needed for flatulence. 30 mL 0 metoprolol tartrate (Lopressor) 25 MG tablet Take 0.25 tablets by mouth 2 times a day. Crush to take (Patient not taking: Reported on 11/13/2024) 15 tablet 0 No current facility-administered medications for this visit. [2] Allergies Allergen Reactions Sulfa Drugs Hives Cosigned by Jay Cadena MD at 11/18/2024 12:00 PM EDT Associated attestation - Jay Cadena MD - 11/18/2024 12:00 PM EDT I saw and evaluated the patient with the medical/ARSON INVESTIGATOR/PA student. I discussed the case with the medical/ARSON INVESTIGATOR/PA student and agree with the findings and plan as documented. I personally performed the Examand Medical Decision Making. documented in this encounter Plan of Treatment Upcoming Encounters Date Type Department Care Team (Late st Contact Info) Description 12/31/2024 1:15 PM EDT Office Visit [facility] Medicine Specialties [address] [place] [address] Alida Roberts, JEFF, DNP [address] [place] [address] 02/12/2025 9:30 AM EDT Appointment [facility] [address] [place] [address] 02/12/2025 1:40 PM EDT Office Visit [facility] General Surgery [address], [address] [place] [address] Jay Cadena MD [facility] [address] 04/09/2025 1:00 PM EST Ovarian Cancer Screening [facility] Gynecology [address] [facility], [address] [place] [address] Scheduled Orders Name Type Priority Associated Diagnoses Orde r Schedule [place] Upper GI Imaging Routine Gastroesophageal reflux disease with esophagitis without hemorrhage Expected: 02/12/2025 (Approximate), Expires: 05/17/2026 documented as of this encounter Visit Diagnoses Diagnosis Hiatal hernia with gastroesophageal reflux- Primary Gastroesophageal reflux disease with esophagitis without hemorrhage documented in this encounter Additional Health Concerns Assessment Noted Time PHQ-9 Depression Total Score: 0 09/17/19 25 12:48 PM EDT A fall risk assessment has been complete d for the patient 09/16/2024 12:48 PM EDT A Body Mass Index follow-up plan has been documented for the patient 11/18/2024 12:01 PM EDT documented as of this encounter Care Teams Saturation Equipment Operator Relationship Specialty Start Date End Date Jeferson Simental MD [address] [place] [address] PCP - General Family Medicine 09/16/24 documented as of this encounter
--- OUTSIDE RECORDS SUMMARY | 2024-11-28 13:30 | XMS_ITS | Encounter Summary ---
[facility] [address] [place] [address] Care Team Providers Care Cutting Table Operator Name Role Phone Jeferson Simental MD Primary Care Provider [phone] Reason for Referral * Diagnostic Imaging (Routine) - Authorized Specialty Diagnoses / Procedures Referred By Contac t Referred To Contact Radiology Diagnoses Encounter for breast cancer screening using non-mammogram modality Procedures Mammo Screening Digital Tomosynthesis Bilateral With CAD Marbella Mendoza MD [address] [address] Phone: tel: fax: [facility] [address] [place] [address] Phone: tel: Referral ID Status Reason Start Date Expiration Date V isits Requested Visits Authorized [id number] Authorized 11/28/2024 02/27/2026 1 1 Reason for Visit * Reason Comments Gynecologic Exam Encounter Details Date Type Department Care Team (Late st Contact Info) Description 11/28/2024 1:30 PM EDT Office Visit [facility] OBGYN [address] [address] Marbella Mendoza MD [address] [facility] [address] [place] [address] Hormone replacement therapy (HRT) (Primary Dx); Women's annual routine gynecological examination; Encounter for breast cancer screening using non-mammogram modality; Vaginal irritation; Hormone replacement therapy; Postmenopausal status Social History Tobacco Use Types Packs/Day Years Used Date Smoking Tobacco: Never Passive Smoke Exposure: Past Smokeless Tobacco: Never Alcohol Use Standard Drinks/Week Comments Not Currently 5 (1 standard drink = 0.6 oz pur e alcohol) Abuse Screen Answer Date Recorded Feels Unsafe at Home or Work/School no 07/23/2024 Feels Threatened by Someone no 07/13 Does Anyone Try to Keep You From Having Contact with Others or Doing Things Outside Your Home? no 07/23/2024 Physical Signs of Abuse Present no 07/23/2024 Comments No Sex and Gender Information Value Date Recorded Sex Assigned at Female 11/21/2024 7:45 AM EDT Legal Sex Female 12:25 PM EDT Gender Identity Not on file Sexual Orientation Not on file documented as of this encounter Last Filed Vital Signs Vital Sign Reading Time Taken Comments Blood Pressure 124/62 11/28/2024 2:00 PM EDT Pulse - - Temperature - - Respiratory Rate - - Oxygen Saturation - - Inhaled Oxygen Concentration - - Weight 60.4 kg (133 lb 3.2 oz) 11/28/2024 2:00 P M EDT Height 170.2 cm (5' 7.01 ) 11/28/2024 2:00 PM ED T Body Mass Index 20.86 11/28/2024 2:00 PM EDT documented in this encounter Progress Notes * Marbella Mendoza MD - 11/28/2024 1:30 PM EDT Images from the original note were not included. 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 HPI Lois Dooley is a 54 y.o. female, , who presents for annual well woman exam as a established patient. She is postmenopausal.. Denies vaginal bleeding. Since her last visit the patient underwent surgery for hiatal hernia repair with Toupee fundoplication for acid reflux. Marital Status: . She is sexually active. She has not had new partners.. STD testing recommendations have beenexplained to the patient and she declines STD testing. The patient would like to discuss the following complaints today: She reports having vaginal irritation that occurred for 4 days and has resolved two days ago. Desires to be tested for yeast infection. Denies discharge or odor. 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 Yes. Details: 0.05mg Vivelle-Dot patch, Prometrium 100mg Last Pap : 11/23/23. Results: negative. HPV: negative. Last Completed Pap Smear Upcoming PAP SMEAR (Every 3 Years) Next due on 11/22/2026 11/23/2023 LIQUID-BASED PAP SMEAR WITH HPV GENOTYPING REGARDLESS OF INTERPRETATION (RACHEL,COR,MAD) 09/22/2020 SCANNED - PAP SMEAR 09/22/2020 SCANNED - PAP SMEAR History of abnormal Pap smear: yes - years ago, repeat normal. Family history of uterine, colon, breast, or ovarian cancer: yes - mother- uterine cancer Performs monthly Self-Breast Exam: no Last mammogram: 05/13/24. Done at . There is a copy in the chart. Last Completed Mammogram Awaiting Completion MAMMOGRAM (Every 2 Years) Order placed this encounter 05/13/2024 Mammo Screening Digital Tomosynthesis Bilateral With CAD 05/12/2023 Mammo Screening Digital Tomosynthesis Bilateral With CAD 05/11/2022 Mammo Screening Digital Tomosynthesis Bilateral With CAD 04/14/2021 Done - nl per pt. [facility] 04/19/2016 Mammo Screening Digital Tomosynthesis Bilateral With CAD Only the first 5 history entries have been loaded, but more history exists. Last colonoscopy: Colonoscopy in 2023 at [facility], recommend follow up in 5 years. No copy in the chart. Last Completed Colonoscopy Upcoming COLORECTAL CANCER SCREENING (COLONOSCOPY - Every 10 Years) Next due on 12/13/2028 12/13/2018 COLONOSCOPY (Done - nl per pt) She has never had a bone density scan Exercises Regularly: yes Feelings of Anxiety or Depression: no Tobacco Usage?: No Current Outpatient Medications: acetaminophen (TYLENOL) 650 MG 8 hr tablet, Take 1 tablet by mouth Every 8 (Eight) Hours As Needed for Mild Pain., Disp: , Rfl: Cholecalciferol (Vitamin D3) 1.25 MG (82296 UT) capsule, Vitamin D3 Daily, Disp: , Rfl: cyanocobalamin 1000 MCG/ML injection, Inject 0.5 mL into the appropriate muscle as directed by prescriber 1 (One) Time Per Week., Disp: , Rfl: estradiol (MINIVELLE, VIVELLE-DOT) 0.05 MG/24HR patch, Place 1 patch on the skin as directed by provider 2 (Two) Times a Week., Disp: 24 patch, Rfl: 4 metoprolol succinate XL (TOPROL-XL) 25 MG 24 hr tablet, Take 1 tablet by mouth Daily., Disp: , Rfl: Progesterone (PROMETRIUM) 100 MG capsule, TAKE 1 CAPSULE BY MOUTH EVERY DAY, Disp: 30 capsule, Rfl:0 rosuvastatin (CRESTOR) 20 MG tablet, Take 1 tablet by mouth Daily., Disp: , Rfl: Patient is requesting refills of Vivelle-Dot and Prometrium. OB History 1 Para 0 Term 0 0 AB 1 Living 0 SAB 1 IAB 0 Ectopic 0 Molar 0 Multiple 0 Live Births 0 Past Medical History: Diagnosis Date Arthritis Hypertension 2020 Past Surgical History: Procedure Laterality Date BREAST BIOPSY Left 04/07/2014 Stereotactic CHOLECYSTECTOMY D & C WITH SUCTION 2001 HIATAL HERNIA REPAIR 10/08/2024 Toupee fundoplication TUBAL ABDOMINAL LIGATION 2012 WISDOM TOOTH EXTRACTION 2018 Health Maintenance Topic Date Due Pneumococcal Vaccine 50+ (1 of 1 - PCV) Never done ANNUAL PHYSICAL Never done COVID-19 Vaccine (2023- season) 2024 Annual Gynecologic Pelvic and Breast Exam 11/23/2024 INFLUENZA VACCINE 02/12/2025 MAMMOGRAM 05/13/2026 PAP SMEAR 11/22/2026 COLORECTAL CANCER SCREENING 12/13/2028 TDAP/TD VACCINES (2 - Td or Tdap) 10/23/2029 HEPATITIS C SCREENING Completed ZOSTER VACCINE Completed The additional following portions of the patient's history were reviewed and updated as appropriate: allergies, current medications, past family history, past medical history, past social history, past surgical history, and problem list. Review of Systems Constitutional: Negative. HENT: Negative. Eyes: Negative. Respiratory: Negative. Cardiovascular: Negative. Gastrointestinal: Negative. Endocrine: Negative. Genitourinary: Negative. Musculoskeletal: Negative. Skin: Negative. Allergic/Immunologic: Negative. Neurological: Negative. Hematological: Negative. Psychiatric/Behavioral: Negative. I have reviewed and agree with the HPI, ROS, and historical information as entered above. Marbella Mendoza MD Objective BP 124/62 Ht 170.2 cm (67.01 ) Wt 60.4 kg (133 lb 3.2 oz) LMP (LMP Unknown) BMI 20.86 kg/m?? Physical Exam Vitals and nursing note reviewed. Exam conducted with a boilermaker loftsman present. Constitutional: Appearance: She is well-developed. HENT: Head: Normocephalic and atraumatic. Neck: Thyroid: No thyroid mass or thyromegaly. Cardiovascular: Rate and Rhythm: Normal rate and regular rhythm. Heart sounds: No murmur heard. Pulmonary: Effort: Pulmonary effort is normal. No retractions. Breath sounds: Normal breath sounds. No wheezing, rhonchi or rales. Chest: Chest wall: No mass or tenderness. Breasts: Right: Normal. No mass, nipple discharge, skin change or tenderness. Left: Normal. No mass, nipple discharge, skin change or tenderness. Abdominal: General: Bowel sounds are normal. Palpations: Abdomen is soft. Abdomen is not rigid. There is no mass. Tenderness: There is no abdominal tenderness. There is no guarding. Hernia: No hernia is present. There is no hernia in the left inguinal area. Genitourinary: Labia: Right: No rash, tenderness or lesion. Left: No rash, tenderness or lesion. Vagina: Normal. No vaginal discharge or lesions. Cervix: No cervical motion tenderness, discharge, lesion or cervical bleeding. Uterus: Normal. Not enlarged, not fixed and not tender. Adnexa: Right: No mass or tenderness. Left: No mass or tenderness. Rectum: No external hemorrhoid. Musculoskeletal: Cervical back: Normal range of motion. No muscular tenderness. Neurological: Mental Status: She is alert and oriented to person, place, and time. Psychiatric: Behavior: Behavior normal. 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 Recommended use of Vitamin D replacement and getting adequate calcium in her diet. (1500mg) Continue yearly mammography. Reviewed self breast awareness. Instructed to call with lumps, pain, or breast discharge. Reviewed HPV guidelines. Reviewed exercise as a preventative health measures. Reviewed risks/benefits of HRT including increased risk of breast cancer, VTE and heart disease. There is evidence HRT decreases hip fracture, colon cancer and all cause mortality. Patient strongly desires to stay on or start HRT. She understands she will use the lowest dose that adequately controls her symptoms. No follow-ups on file. Marbella Mendoza MD 11/28/2024 documented in this encounter Plan of Treatment Upcoming Encounters Date Type Department Care Team (Late st Contact Info) Description 02/18/2025 1:30 PM EDT Office Visit [facility] RHEUMATOLOGY [address] [place] [address] Primo Flores MD 330 [facility] [address] [place] [address] 05/14/2025 11:30 AM EST Appointment [facility] [address] [place] [phone] 12/04/2025 1:30 PM EDT Office Visit [facility] OBGYN [address] [facility] [address] [place] [address] Marbella Mendoza MD [address] [facility] [address] [place] [address] Scheduled Orders Name Type Priority Associated Diagnoses Orde r Schedule Mammo Screening Digital Tomosynthesis Bilateral With CAD Imaging Routine Encounter for breast cancer screening using non-mammogram modality Expected: 12/29/2024 (Approximate), Expires: 11/28/2025 documented as of this encounter Procedures Procedure Name Priority Date/Time Associated Diagnosis Comments NUSWAB VG, CINDI 6SP Routine 11/28/2024 12:00 AM EDT Vaginal irritation documented in this encounter Results * NuSwab VG, Cindi 6sp - Swab, Vagina (11/28/2024 12:00 AM EDT) Atopobium Vaginae Low - 0 Score [facility] BVAB 2 Low - 0 Score [facility] Megasphaera 1 Low - 0 Score [facility] Comment: Calculate total score by adding the 3 individual bacterial vaginosis (BV) marker scores together. Total score is interpreted as follows: Total score 0-1: Indicates the absence of BV. Total score 2: Indeterminate for BV. Additional clinical data should be evaluated to establish a diagnosis. Total score 3-6: Indicates the presence of BV. Cindi Albicans, CHRISTOPHER Negative Negative [facility] Cindi Glabrata, CHRISTOPHER Negative Negative [facility] C PARAPSILOSIS/TROP ICALIS Negative Negative [facility] Comment:This assay does not differentiate C. tropicalis and C. parapsilosis. Cindi lusitaniae, CHRISTOPHER Negative Negative [facility] Cindi krusei, CHRISTOPHER Negative Negative [facility] Trichomonas vaginosis Negative Negative [facility] Swab Vaginal structure / Unknown 11/28/2024 11/28/2024 Comment:Swab Release to vijay Clayton [facility] - 12/02/2024 6:08 AM EDT Test(s) 397132- Atopobium vaginae; 755394- BVAB 2; 231316- Megasphaera 1 was developed and its performance characteristics determined by [facility]. It has not been cleared or approved by the Food and Drug Administration. Test(s) 823756-Qchqlch albicans, CHRISTOPHER; 973926-Dmufcpl glabrata, CHRISTOPHER; 204889-C parapsilosis/tropicalis; 183697-Gfuivmc lusitaniae, CHRISTOPHER; 317768-Vsjbtpb krusei, CHRISTOPHER was developed and its performance characteristics determined by [facility]. It has not been cleared or approved by the Food and Drug Administration. Performed at: [address] [id number] Automobile Spring Repairer: Lolita Braga MD, Phone: [phone] Marbella Mendoza MD MICROBIOLOGY - GENERAL ORDERABL ES Final Result [facility] [address] [place] [address], [place] [phone] [facility] [address] [place] [address], [place] [phone] documented in this encounter Visit Diagnoses Diagnosis Hormone replacement therapy (HRT)- Primary Women's annual routine gynecological examination Encounter for breast cancer screening using non-mammogram modality Vaginal irritation Pruritus of genital organs Hormone replacement therapy Postmenopausal status Asymptomatic postmenopausal status (age-related) (natural) documented in this encounter Care Teams Cutting Table Operator Relationship Specialty Start Date End Date Jeferson Simental MD [address] [place] [address] PCP - General Internal Medicine 09/19/24 documented as of this encounter
[2024-12-13] VITALS (10 sets, daily range): BP systolic 121–144; BP diastolic 69–96; PULSE 58–69; RESP 18–20; TEMP 36.7; O2SAT 99–100
--- OUTSIDE RECORDS SUMMARY | 2024-12-13 09:43 | XMS_ITS | Encounter Summary ---
Author Organization Healthcare Address [address] [place] [address] Care Team Providers Care Administrative Nursing Supervisor Name Role Phone Jeferson Simental MD Primary Care Provider [phone] Encounter Details Date Type Department Care Team (Latest Contact Info) Description 10/21/2024 Travel Social History Tobacco Use Types Packs/Day Years [...] any time in the past 12 m [facility], were you homeless or living in a skilled nursing (including now)? No 10/21/2024 Utilities Answer Date [...] on file documented as of this encounter Functional Status * Calculated C-SSRS Risk Score (Lifetime/Recent) Answer Date of Assessment Author No Risk Indicated 10/21/2024 8:00 PM EDT Fowler, O ctavia * Question Answer Date of Assessment Author 1. Wish to be (Past 1 Month) No 025 8:00 PM EDT Fowler, Katheryn 2. Non-Specific Active Suici tai Thoughts (Past 1 Month) No 10/21/2024 8:00 PM EDT Fowler, Toomsuba 6. Suicidal Behavior (Lifetime) No 8:00 PM EDT Fowler, Katheryn documented as of this encounter Plan of Treatment Upcoming Encounters Date Type Department Care Team (Late st Contact Info) Description 12/31/2024 1:15 PM EDT Office Visit [facility] Medicine Specialties [address] [place] [address] Alida Roberts APRN, DNP [address] [place] [address] 02/12/2025 9:30 AM EDT Appointment [facility] Radiology [address] [place] [address] 02/12/2025 1:40 PM EDT Office Visit [facility] [address], [address] [place] [address] Jay Cadena MD [address] [place] [address] 04/09/2025 1:00 PM EST Ovarian Cancer Screening [facility] Gynecology [address] [facility], 3rd [place] [phone] documented as of this encounter Visit Diagnoses Not on filedocumented in this encounter Additional Health Concerns Assessment Noted Time PHQ-9 Depression Total Score: 0 09/17/19 12:48 PM EDT A fall risk assessment has been complete d for the patient 09/16/2024 12:48 PM EDT A Body Mass Index follow-up plan has been documented for the patient 10/23/2024 9:00 AM EDT documented as of this encounter Care Teams Administrative Nursing Supervisor Relationship Specialty Start Date End Date Jeferson Simental MD [address] [place] [address] PCP - General Family Medicine 09/16/24 documented as of this encounter
--- OUTSIDE RECORDS SUMMARY | 2024-12-13 09:43 | XMS_ITS | Clinical Summary ---
Author Organization [facility] Address [address] [place] [address] Care Team Providers Care Charter Pilot Name Role Phone Jeferson Simental MD Primary Care Provider [phone] Allergies Active Allergy Reactions Criticality Noted Date Comments Sulfa Antibiotics Hives 07/14/2014 Medications Cholecalciferol (Vitamin D3) 1.25 MG (70537 UT) capsule Vitamin D3 Daily Active acetaminophen (TYLENOL) 650 MG 8 hr tablet Take 1 tablet by mouth Every 8 (Eight) Hours As Needed for Mild Pain. Active rosuvastatin (CRESTOR) 20 MG tablet Take 1 tablet by mouth Daily. Active metoprolol succinate XL (TOPROL-XL) 25 MG 24 hr tablet Take 1 tablet by mouth Daily. 09/04/19 25 Active cyanocobalamin 1000 MCG/ML injection Inject 0.5 mL into the appropriate muscle as directed by prescriber 1 (One) Time Per Week. 11/25/19 25 Active Progesterone (PROMETRIUM) 100 MG capsuleIndication s:Hormone replacement therapy (HRT) Take 1 capsule by mouth Daily. 90 capsule 3 11/29/19 25 Active estradiol (MINIVELLE, VIVELLE-DOT) 0.05 MG/24HR patchIndications: Hormone replacement therapy (HRT) Place 1 patch on the skin as directed by provider 2 (Two) Times a Week. 24 patch 4 11/29/19 25 Active lisinopril (PRINIVIL,ZESTRIL ) 5 MG tablet Take 1 tablet by mouth 2 (Two) Times a Day. 04/14/20 21 025 Discontin ued(*Ther apy completed ) esomeprazole (nexIUM) 40 MG capsule esomeprazole magnesium 40 mg capsule,delayed release Take 1 capsule every day by oral route for 90 days. 025 Discontin ued(*Ther apy completed ) Plenvu 140 g reconstituted solution solution See Admin Instructions. 10/19/19 24 025 Discontin ued(*Ther apy completed ) estradiol (MINIVELLE, VIVELLE-DOT) 0.05 MG/24HR patchIndications: Hormone replacement therapy (HRT) Place 1 patch on the skin as directed by provider 2 (Two) Times a Week. 24 patch 4 11/23/19 24 025 Discontin ued(Reord er) metoprolol tartrate (LOPRESSOR) 12.5 MG half tablet Take 1 half tablet by mouth 2 (Two) Times a Day. 025 Discontin ued(*Ther apy completed ) estradiol-norethi ndrone (COMBIPATCH) 0.05-0.14 MG/DAY patchIndications: Hormone replacement therapy (HRT) Place 1 patch on the skin as directed by provider 2 (Two) Times a Week. 8 patch 10/11/19 25 025 Discontin ued(*Ther apy completed ) Progesterone (PROMETRIUM) 100 MG capsuleIndication s:Hormone replacement therapy (HRT) TAKE 1 CAPSULE BY MOUTH EVERY DAY 30 capsule 11/01/19 025 Discontin ued(Reord er) Active Problems Problem Noted Date Diagnosed Date Positive JYOTSNA (antinuclear antibody) 07/04/2024 Assessment & Plan (08/16/2024 2:46 PM EDT): 1: 79 homogenous. Drawn due to multiple somatic complaints primarily GI and cardiac. Also found to have a positive CCP antibody. Rheumatoid factor negative. Sed rate and CRP normal. CORRINA panel negative. 14.3.3 ETA negative. Platelet count slightly elevated. CMP with low sodium at 131. Crithidia double-stranded DNA negative. Repeat CCP antibody negative.. Rheumatoid factor negative. Spatone's panel negative. C4 complement borderline low at 13 with normal being 14. She currently has no symptoms of JYOTSNA associated disease. Her symptoms are generally not seen in lupus or similar illnesses. She has negative CORRINA panel, Crithidia double-stranded DNA, and borderline complement levels. Repeat CCP is completely negative as is rheumatoid factor. The borderline low complement level is a little concerning but can be seen as a genetic problem. We will follow her for this. We discussed the meaning of a positive JYOTSNA. I will see her in follow-up in about 6 months. Assessment & Plan (07/04/2024 12:43 PM EST): 1: 79. Drawn due to multiple somatic complaints primarily GI and cardiac. Also found to have a positive CCP antibody. Rheumatoid factor negative. Sed rate and CRP normal. She currently has no symptoms of JYOTSNA associated disease. Her symptoms are generally does not seen in lupus or similar illnesses. For completeness, I will obtain CORRINA panel, Crithidia double-stranded DNA, and complement levels. I reviewed about 30 pages of records she brought in as outlined in the history of present illness. We discussed the meaning of a positive JYOTSNA. I will see her in follow-up in about 6 weeks. Orders: CBC Auto Differential; Future Comprehensive Metabolic Panel; Future C-reactive Protein; Future JYOTSNA by IFA, Reflex 9-biomarkers profile; Future C4+C3; Future Urinalysis With Culture If Indicated -; Future dsDNA Antibody by IFA, Crithidia luciliae, with Reflex to Titer; Future Positive anti-CCP test 07/04/2024 Assessment & Plan (08/16/2024 2:46 PM EDT): With negative rheumatoid factor. Repeat CCP antibody completely negative. 14.3.3 ETA negative. The positive CCP was likely lab error. She does not have any small joint pain or swelling. Assessment & Plan (07/04/2024 12:43 PM EST): With negative rheumatoid factor. She does not have any small joint pain or swelling. The concern is that patients with a positive CCP antibody have a higher risk of progressing to rheumatoid arthritis. I discussed this and the meaning of his CCP antibody at length. I will obtain several labs including 14.3.3 ETA and repeat rheumatoid factor and I will follow her through time. I told her to call me immediately if she starts having small joint pain or swelling. Orders: 14.3.3 ETA, Rheum. Arthritis; Future Cyclic Citrul Peptide Antibody, IgG / IgA; Future Rheumatoid Factor; Future Sedimentation Rate; Future Cervical radiculitis 07/04/2024 Assessment & Plan (08/16/2024 2:46 PM EDT): MRI showed foraminal narrowing. She had a good response to a steroid injection in her neck with the pain center. Her symptoms are coming back and she would like to try physical therapy. Orders: Ambulatory Referral to Physical Therapy for Evaluation & Treatment Assessment & Plan (07/04/2024 12:43 PM EST): MRI showed foraminal narrowing. She had a good response to a steroid injection in her neck with the pain center. Gastroesophageal reflux dise ase with esophagitis without hemorrhage 07/04/2024 Assessment & Plan (08/16/2024 2:46 PM EDT): EGD showed esophagitis and esophageal narrowing. She had dilation but continues having severe GI symptoms. She is scheduled for further evaluation at [facility] including manometry. Assessment & Plan (07/04/2024 12:43 PM EST): EGD showed esophagitis and esophageal narrowing. She had dilation but continues having severe GI symptoms. She is scheduled for further evaluation at [facility] including manometry. Chronic fatigue 07/04/2024 Assessment & Plan (08/16/2024 2:46 PM EDT): This has worsened greatly since she had COVID in early 2023. Her sleep has been very poor and she is scheduled for a sleep study. Assessment & Plan (07/04/2024 12:43 PM EST): This has worsened greatly since she had COVID in early 2023. Her sleep has been very poor and she is scheduled for a sleep study. Orders: Hepatitis Panel, Acute; Future Vaginal atrophy 02/06/2023 Encounters Date Type Department Care Team Description 11/28/2024 1:30 PM EDT Office Visit [facility] OBGYN [address] [facility] [address] [place] [address] Trinity Mendoza MD Hormone replacement therapy (HRT) (Primary Dx); Women's annual routine gynecological examination; Encounter for breast cancer screening using non-mammogram modality; Vaginal irritation; Hormone replacement therapy; Postmenopausal status 11/28/2024 Travel 11/27/2024 Refill [facility] [address] [facility] [address] [place] [phone] Trinity Mendoza MD Hormone replacement therapy (HRT) 10/31/2024 Refill [facility] [address] [facility] [address] [place] [phone] Trinity Mendoza MD Hormone replacement therapy (HRT) 10/10/2024 Telephone [facility] [address] [facility] [address] [place] [phone] StarkGa herrmann APRN STARK- PRESCRIPTION ISSUE 10/10/2024 Telephone [facility] OBGYN [address] [phone] Trinity Mendoza MD [facility]? 09/19/2024 11:17 AM EDT - 09/19/2024 11:59 PM EDT Hospital Encounter [facility] AT [address] [phone] Jeferson Simental MD Thoracic spine pain Discharge Disposition: Home or Self Care 09/19/2024 Travel from Last 3 Months Family History Medical History Relation Name Comments Hypertension Father Clay Lymphoma Father Clay Hypertension Maternal Grandfather Williviri Endometrial cancer Mother Caryn Hypertension Mother Caryn Lymphoma Mother Caryn Ovarian cancer Mother Caryn Uterine cancer Mother Caryn Stroke Paternal Grandfather Momo Stroke Paternal Uncle Breast cancer Neg Hx Colon cancer Neg Hx Relation Name Status Comments Father Clay Maternal Grandfather Willim Mother Caryn Paternal Grandfather Momo Paternal Uncle Social History Tobacco Use Types Packs/Day Years [...] on file Sexual Orientation Not on file Last Filed Vital Signs Vital Sign Reading Time Taken Comments Blood Pressure 124/62 11/28/2024 2:00 PM EDT Pulse 57 08/16/2024 1:56 PM EDT Temperature 36.6 C (97.9 F) 08/16/2024 1:56 PM EDT Respiratory Rate 16 07/23/2024 12:05 PM EDT Oxygen Saturation 99% 07/23/2024 3:00 PM EDT Inhaled Oxygen Concentration - - Weight 60.4 kg (133 lb 3.2 oz) 11/28/2024 2:00 P M EDT Height 170.2 cm (5' 7.01 ) 11/28/2024 2:00 PM ED T Body Mass Index 20.86 11/28/2024 2:00 PM EDT Plan of Treatment Upcoming Encounters Date Type Department Care Team (Late st Contact Info) Description 02/18/2025 1:30 PM EDT Office Visit [facility] RHEUMATOLOGY [address] [phone] Primo Flores MD [address] [address] 05/14/2025 11:30 AM EST Appointment [facility] [address] [place] [phone] 12/04/2025 1:30 PM EDT Office Visit [facility] [address] [facility] [phone] Trinity Mendoza MD [address] [address] Health Maintenance Due Date Last Done Comments COLOGUARD 2014 COLON CANCER SCREENING 5 YEA R SIGMOID[address]COPY [address] COLONOGRAPHY 2014 FECAL OCCULT BLOOD TEST 2014 FIT Testing (1 year) 2014 Pneumococcal Vaccine 50+ (1 of 1 - PCV) 10/16/2019 ANNUAL PHYSICAL 02/05/2020 COVID-19 Vaccine (5 - 2023-2 5 season) 2024 02/01/2022, 04/28/2021, 08/28/2020, Additional history exists INFLUENZA VACCINE 02/12/2025 02/08/2024, , 02/01/2022, Additional history exists Annual Gynecologic Pelvic an d Breast Exam 11/29/2025 11/28/2024, 09/22/2020, 09/22/2020 MAMMOGRAM 05/13/2026 05/13/2024, 04/15, 05/11/2022, Additional history exists PAP SMEAR 11/22/2026 11/23/2023, 09/12, 09/22/2020 COLONOSCOPY 12/13/2028 12/13/2018 COLORECTAL CANCER SCREENING 12/13/2028 TDAP/TD VACCINES (2 - Td or Tdap) 10/23/2029 020 ZOSTER VACCINE Completed 10/01/2021, 09/12, 05/19/2021 HEPATITIS C SCREENING Completed 07/04/2024 Procedures Procedure Name Priority Date/Time Associated Diagnosis Comments NUSWAB VG, CINDI 6SP Routine 11/28/2024 12:00 AM EDT Vaginal irritation SCANNED - LABS 11/21/2024 XR SPINE THORACIC 3 VW Routine 09/19/2024 11:28 AM EDT Thoracic spine pain HEPATITIS PANEL, ACUTE Routine 07/04/2024 11:48 AM EST Chronic fatigue MAMMO SCREENING DIGITAL TOMOSYNTHESIS BILATERAL W CAD Routine 05/13/2024 9:17 AM EST Visit for screening mammogram LIQUID-BASED PAP SMEAR WITH HPV GENOTYPING REGARDLESS OF INTERPRETATION, [facility] (RACHEL,COR,[facility]) Routine 11/23/2023 4:26 PM EDT Women's annual routine gynecological examination SCANNED - PAP SMEAR 09/22/2020 from Last 3 Months or Most Recently Relevant to Health Maintenance Results * NuSwab VG, Cindi 6sp - [...] 11/28/2024 11/28/2024 Comment:Swab Release to vijay Clayton [facility] (AMBULATORY) - 12/02/2024 6:08 AM EDT Test(s) 785729- Atopobium vaginae; 023268- BVAB 2; 686980- Megasphaera 1 was developed and its performance characteristics determined by [facility]. It has not been cleared or approved by the Food and Drug Administration. Test(s) 882607-Ozevtix albicans, CHRISTOPHER; 534913-Jftrlyn glabrata, CHRISTOPHER; 827938-X parapsilosis/tropicalis; 550677-Bghnqkv lusitaniae, CHRISTOPHER; 096541-Bkkvedo krusei, CHRISTOPHER was developed and its performance characteristics determined by [facility]. It has not been cleared or approved by the Food and Drug Administration. Performed at: - [address] [id number] [employer]: Lolita Braga MD, Phone: [phone] Trinity Mendoza MD MICROBIOLOGY - GENERAL ORDERABL ES Final Result [facility] ([facility]) [address] [place] [address], [place] [phone] [facility] [address] [place] [address], [place] [phone] * LABS SCANNED (11/21/2024) [facility] Onbase LAB BLOOD ORDERABLES Final Re sult * XR Spine Thoracic 3 View (09/19/2024 11:28 AM EDT) Anatomical Region Laterality Modality Spine, T-spine N/A Radiographic Sherine ging 09/23/2024 12:2 7 PM EDT Impressions 09/23/2024 12:29 PM EDT Impression: Thoracic spine series with swimmer's lateral view demonstrating multilevel degenerative change consistent with osteoarthritis. Electronically Signed: Osei Nuñez MD 09/23/2024 12:29 PM EDT Workstation ID: [id number] Narrative 09/23/2024 12:29 PM EDT XR SPINE THORACIC 3 VW Date of Exam: 09/19/2024 11:22 AM EDT Indication: THORACIC SPINE PAIN Comparison: None available. Findings: Vertebral body heights are maintained. No fractures or subluxations are seen. Mild endplate spurring is seen throughout the thoracic spine, with mild narrowing of the upper and mid thoracic disc spaces. No lytic or sclerotic bone lesions are seen. Surgical clips in the right upper quadrant are consistent with cholecystectomy. Procedure Note Osei Nuñez MD - 09/23/2024 XR SPINE THORACIC 3 VW Date of Exam: 09/19/2024 11:22 AM EDT Indication: THORACIC SPINE PAIN Comparison: None available. Findings: Vertebral body heights are maintained. No fractures or subluxations areseen. Mild endplate spurring is seen throughout the thoracic spine, with mildnarrowing of the upper and mid thoracic disc spaces. No lytic or sclerotic bone lesions are seen. Surgical clips in the right upper quadrant are consistent withcholecystectomy. IMPRESSION: Impression: Thoracic spine series with swimmer's lateral view demonstrating multileveldegenerative change consistent with osteoarthritis. Electronically Signed: Osei Nuñez MD 09/23/2024 12:29 PM EDT Workstation ID: [id number] Jeferson Simental MD IMG DIAGNOSTIC IMAGING OR DERABLES Final Result * Hepatitis Panel, Acute (07/04/2024 11:48 AM EST) Hepatitis B Surface Ag Non-Reacti ve Non-Reacti ve 07/04/2024 11:24 PM EST [facility] Hep A IgM Non-Reacti ve Non-Reacti ve 07/04/2024 11:24 PM EST [facility] Hep B C IgM Non-Reacti ve Non-Reacti ve 07/04/2024 11:24 PM EST [facility] Hepatitis C Ab Non-Reacti ve Non-Reacti ve 07/04/2024 11:24 PM EST [facility] Blood Venipuncture / Unknown 07/04/2024 11:48 AM EST 07/04/2024 11:48 AM EST Narrative [facility] - 07/04/2024 11:24 PM EST Results may be falsely decreased if patient taking Biotin. Primo Flores MD LAB BLOOD ORDERABLES Final Res ult [facility]
[address] [place] [address], * Mammo Screening Digital Tomosynthesis Bilateral With CAD (05/13/2024 9:17 AM EST) Anatomical Region Laterality Modality Breast N/A Mammography 05/14/2024 2:26 PM EST Impressions 05/14/2024 2:32 PM EST No findings suspicious for malignancy. ACR BI-RADS CATEGORY: 1, NEGATIVE RECOMMENDATION: Yearly mammogram, yearly clinical breast exam, and encourage self breast awareness. CAD was used. The standard false negative rate of mammography is between 10% and 25%. Complex patterns or increased breast density will markedly elevate the false negative rate of mammography. A letter, in lay terminology, with the results of this exam will be mailed to the patient. If there is a palpable area of concern, biopsy should be considered regardless of imaging findings. This report was finalized on 05/14/2024 2:32 PM by Mary Hurtado MD. Narrative 05/14/2024 2:32 PM EST ROUTINE DIGITAL SCREENING MAMMOGRAM WITH TOMOSYNTHESIS HISTORY: Routine screening. IMAGE COMPARISON: Extending to 2014. TECHNIQUE: Low dose full field digital breast tomosynthesis imaging was performed with 2D and 3D acquisitions consisting of bilateral CC and MLO views. FINDINGS: There are scattered fibroglandular densities. The fibroglandular pattern appears stable. There is no mass, worrisome microcalcifications, or architectural distortion to suggest development of malignancy. us Trinity Mendoza MD IMG MAMMOGRAPHY ORDERABLES Hellen l Result * LIQUID-BASED PAP SMEAR WITH HPV GENOTYPING REGARDLESS OF INTERPRETATION (R[facility]HEL,COR,[facility]AD) (11/23/2023 4:26 PM EDT) Reference Lab Report [facility] [address] [place] [address] or [phone] Eddie Benoit M.D., Weight And Test Bar Clerk PATIENT NAME [facility]ATORY [facility] [address] LOIS DOOLEY [id number] AGE SEX SSN CLIENT REF # [id number] [id number] F [id number] [address] REQUESTING MKai. [place] [address] TRINITY MENDOZA DATE COLLECTED DATE RECEIVED DATE REPORTED 11/23/2023 11/23/2023 11/28/2023 ThinPrep Pap with Cytyc Imaging DIAGNOSIS: Negative for intraepithelial lesion or malignancy Multiple factors can influence accuracy of Pap tests; therefore, screening at regular intervals is necessary for early cancer detection. SPECIMEN ADEQUACY: SATISFACTORY FOR EVALUATION Transformation zone is present. SOURCE OF SPECIMEN: CERVICAL/ENDOCERV ICAL SLIDES: 1 CLINICAL HISTORY: Women's annual routine gynecological examination Post Menopausal, Hormonal Therapy HPV HR-HPV POOL: Negative The Aptima HPV assay is an in vitro nucleic acid amplification test for the qualitative detection of E6/E7 viral messenger RNA from 14 high risk types of HPV in cervical specimens. The high risk HPV types detected include: 16, 18, 31, 33, 35, 39, 45, 51, 52, 56, 58, 59, 66, 68 WATERSHED PROGRAM MANAGER: FERNANDA SERVIN (ASCP) CPT CODES: 04798, 38987 11/28/2023 10:36 AM EDT [facility] ThinPrep Vial Cervix uteri structure / Unknown Collection / Unknown 11/23/2023 4:26 PM EDT 11/23/2023 4:26 PM EDT us Trinity Mendoza MD PATHOLOGY/CYTOLOGY ORDERABLES F inal Result [facility]
[address] [place] [address], * SCANNED - PAP SMEAR (09/22/2020) us Trinity Mendoza MD CHART REVIEW TABS Final Resu lt from Last 3 Months or Most Recently Relevant to Health Maintenance Insurance [facility] PPO Care Teams Charter Pilot Relationship Specialty Start Date End Date Jeferson Simental MD [address] [place] [address] PCP - General Internal Medicine 09/19/24
--- OUTSIDE RECORDS SUMMARY | 2024-12-13 09:43 | XMS_ITS | Clinical Summary ---
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 estradiol (Vivelle-DOT) 0.05 MG/24HR Place 1 patch on the skin 2 times a week. Applied Monday and Monday Active progesterone (Prometrium) 100 MG capsule Take 1 tablet by mouth nightly. Active fluticasone (Flonase) 50 MCG/ACT nasal spray SPRAY TWO SPRAYS IN EACH NOSTRIL ONCE DAILY NEEDED FOR ALLERGIES Active rosuvastatin (Crestor) 20 MG tablet Take 1 tablet by mouth nightly. 07/31/19 25 Active cholecalciferol (Vitamin D3) 25 MCG (1000 UT) tablet Take 1 tablet by mouth daily. Active lactobacillus (Culturelle Immunity Support) capsule Take 1 capsule by mouth nightly. Active simethicone (Mylicon) 20 mg/0.3 mL drops Take 1.2 mL by mouth 4 times a day as needed for flatulence. 30 mL 10/10/19 25 Active ondansetron ODT (Zofran-ODT) 4 MG disintegrating tablet Dissolve 1 tablet on the tongue every 6 hours as needed for nausea or vomiting. 20 tablet 1 10/10/19 25 Active HYDROcodone-acetam inophen (Hycet) 7.5-325 MG/15ML solution Take 15 mL by mouth every 6 hours as needed for severe pain (pain). 420 mL 10/10/19 25 Active estradiol-norethin drone (Combipatch) 0.05-0.14 MG/DAY Place 1 patch on the skin 2 times a week. Applies on Monday and Monday Active metoprolol succinate XL (Toprol-XL) 25 MG 24 hr tablet Take 0.5 tablets by mouth daily. Crush pill to to take 15 tablet 10/24/19 25 Active acetaminophen (Tylenol) 160 MG/5ML solution Take 20 mL by mouth every 6 hours as needed for pain. 120 mL 10/24/19 25 Active metoprolol tartrate (Lopressor) 25 MG tablet Take 0.25 tablets by mouth 2 times a day. Crush to take 15 tablet 10/24/19 25 Active Additional Information Patient not taking.Reported on 11/13/2024 Active Problems Problem Noted Date Diagnosed Date Dysphagia 10/20/2024 Hiatal hernia with gastroesophageal reflux 09/18 Gastroesophageal reflux dise ase with esophagitis without hemorrhage 08/14/2024 Tachycardia 08/14/2024 Encounters * This document contains information received from the source organization and may not represent a complete record from that organization. Date Type Department Care Team Description 12/05/2024 Telephone [facility] General Surgery [address] [place] [address] Mickie Bach RN 11/18/2024 Telephone [facility] General Surgery [address], [address] [place] [address] Mickie Bach RN 11/13/2024 9:10 AM EDT Office Visit [facility] General Surgery [address] [place] [address] Jay Cadena MD Hiatal hernia with gastroesophageal reflux (Primary Dx); Gastroesophageal reflux disease with esophagitis without hemorrhage 11/13/2024 Travel 10/21/2024 Travel 10/20/2024 12:49 PM EDT - 10/23/2024 10:49 AM EDT Hospital Encounter [facility] [address] [place] [address] Toyin Levy MD Roth, John S, MD Dysphagia, unspecified type (Primary Dx); Chest pain, unspecified type Discharge Disposition: Home or Self Care 10/20/2024 Travel 10/08/2024 9:40 AM EDT - 10/08/2024 12:40 PM EDT Surgery [facility] Operating Room [address] [place] [address] Jay Cadena MD REPAIR, HERNIA, HIATAL, LAPAROSCOPIC, USING MESH, TOUPET FUNDOPLICATION [50763 (CPT )] 10/08/2024 9:39 AM EDT Anesthesia Event [facility] Operating [address] [place] [address] Marco A Jacobson, Lakeshia Del Castillo CRNA, DNP 10/08/2024 7:09 AM EDT - 10/09/2024 7:41 PM EDT Hospital Encounter [facility] Inpatient [address] [place] [address] Jay Cadena MD Hiatal hernia with gastroesophageal reflux (Primary Dx) Discharge Disposition: Home or Self Care 10/08/2024 Travel 10/04/2024 Travel 10/01/2024 Travel 09/18/2024 10:00 AM EDT Office Visit [facility] General Surgery [address], [address] [place] [address] Jay Cadena MD Hiatal hernia with gastroesophageal reflux (Primary Dx) 09/18/2024 Travel 09/16/2024 12:45 PM EDT Office Visit [facility] Medicine Specialties [address] [place] [address] Alida Roberts APRN, DNP Gastro-esophageal reflux disease without esophagitis (Primary Dx); Delayed gastric emptying; Healthcare maintenance 09/16/2024 Travel 09/12/2024 Travel from Last 3 Months Immunizations Immunization Administration Dates Next Due Hep A, Adult 03/12/2018,09/06/2017 Influenza, injectable, MDCK, preservative free, quadrivalent 02/02/2023,02/01/2022 Influenza, injectable, quadr ivalent, preservative free 02/03/2021,01/16/2020,01/22/2019,2017,01/30/2017 Influenza, seasonal, injecta ble, preservative free 02/08/2024 Moderna COVID-19 Vaccine (Re d Cap) 12+ years 04/28/2021,08/28/2020,07/30/2020 Moderna COVID-19 Vaccine Biv alent 6months+ 02/01/2022 SARS-CoV-2, Unspecified 02/01/2022,04/28,08/28/2020,2020 Tdap 10/24/2019 Zoster, Recombinant 10/01/2021,05/19/2021 Zoster, Unspecified 09/29/2021 Family History Medical History Relation Name Comments Cancer Father Clay Hypertension Father Clay Heart attack Maternal Grandfather Farzad Heart disease Maternal Grandfather Farzad Hearing loss Maternal Grandmother Virginie Arthritis Mother Caryn Cancer Mother Caryn Heart disease Mother Caryn Hyperlipidemia Mother Caryn Stroke Paternal Grandfather Momo Relation Name Status Comments Father Clay Alive Maternal Grandfather Farzad Alive Maternal Grandmother Virginie Mother Caryn Alive Paternal Grandfather Momo Alive Social History Tobacco Use Types Packs/Day Years Used Date Smoking Tobacco: Never Smokeless Tobacco: Never Tobacco Cessation:Counseling Given: Not Answered Alcohol Use Standard Drinks/Week Comments Not Currently [...] any time in the past 12 m [facility], were you homeless or living in a penitentiary (including now)? No 10/21/2024 Utilities Answer Date [...] Mass Index 25.18 11/13/2024 8:49 AM EDT Plan of Treatment Upcoming Encounters Date Type Department Care Team (Late st Contact Info) Description 12/31/2024 1:15 PM EDT Office Visit [facility] Medicine Specialties [address] [place] [address] Alida Roberts APRN, DNP [address] [place] [address] 02/12/2025 9:30 AM EDT Appointment [facility] [address] [place] [phone] 02/12/2025 1:40 PM EDT Office Visit [facility] General Surgery [address], [address] [place] [phone] Jay Cadena MD [address] [address] 04/09/2025 1:00 PM EST Ovarian Cancer Screening [facility] Gynecology [address], [address] [place] [phone] Health Maintenance Due Date Last Done Comments [facility]-HIV Screening 1969 [facility]-Hepatitis C Screening 1969 [facility]-/Child/Adol SDOH Screenings 1970 [facility]-Hepatitis B Vaccines (1 of 3 - 19+ 3-dose series) 1988 [facility]-HPV/Cotest 10/16/1999 CT Colonography 2014 Colonoscopy 2014 FIT-DNA 2014 FIT 2014 FOBT 2014 Sigmoidoscopy 2014 [facility]-Colorectal Cancer Screening 2014 [facility]-Pneumococcal Vaccine: 50+ Years (1 of 1 - PCV) 10/16/2019 [id number] Vaccine (2023- season) 2024 02/01/2022, 02/01/2022, 04/28/2021, Additional history exists [facility]-Influenza Vaccine (#1) 01/13/202502/07, 02/02/2023, 02/01/2022, Additional history exists [facility]- SDOH Screenings 04/22/2025 [facility]-Adult SDOH Screenings 04/22/2025 10/21/2024 [facility]-Depression Screening 09/16/2025 09/16/2024, 050 09/2024 [facility]-Breast Cancer Screening 05/13/202604/16, 05/13/2024, 05/12/2023, Additional history exists [facility]-Cervical Cancer Screening 11/22/2026 [facility]-Pap Smear 11/22/2026 11/23/2023 [facility]-DTaP,Tdap,and Td Vaccines (2 - Td or Tdap) 10/23/2029 10/24/2019 [facility]-Hepatitis A Vaccines Aged Out 03/12/2018, 08/14 No longer eligible based on patient's age to complete this topic [facility]-Zoster Vaccines Completed 10/01/2021, 09/29/2021, 05/19/2021 [facility]-Obesity Intervention Completed 025, 10/20/2024, 09/18/2024, Additional history exists HPV Vaccines Aged Out No longer eligi ble based on patient's age to complete this topic [facility]-HIB Vaccines Aged Out No longer e ligible based on patient's age to complete this topic [facility]-IPV Vaccines Aged Out No longer e ligible based on patient's age to complete this topic [facility]-Rotavirus Vaccines Aged Out No lo nger eligible based on patient's age to complete this topic Procedures Procedure Name Priority Date/Time Associated Diagnosis Comments BASIC METABOLIC PANEL, PLASMA Pending Discharge 10/22/2024 2:09 PM EDT FL UPPER GI Routine 10/21/2024 10:36 AM EDT URINE WEBB PANEL STAT 10/20/2024 2:23 PM EDT URINALYSIS WITH REFLEX MICROSCOPIC STAT 10/20/2024 2:23 PM EDT URINALYSIS WITH REFLEX MICROSCOPIC AND CULTURE STAT 10/20/2024 2:[address] ABDOMEN PELVIS W IV CONTRAST STAT 10/20/2024 2:16 PM EDT XR CHEST 1 VIEW STAT 10/20/2024 1:19 PM EDT TROPONIN T, HIGH SENSITIVITY, 0 HOUR, PLASMA, REFLEX TO 2 HOUR STAT 10/20/2024 1:19 PM EDT LACTATE, VENOUS STAT 10/20/2024 1:19 PM EDT LIPASE, PLASMA STAT 10/20/2024 1:19 PM EDT PHOSPHORUS, PLASMA STAT 10/20/2024 1:19 PM EDT MAGNESIUM, PLASMA STAT 10/20/2024 1:19 PM EDT COMPREHENSIVE METABOLIC PANEL, PLASMA STAT 10/20/2024 1:19 PM EDT PROTHROMBIN TIME(PT) / INR STAT 10/20/2024 1:19 PM EDT CBC WITH AUTO DIFFERENTIAL STAT 10/20/2024 1:19 PM EDT SODIUM, PLASMA Routine 10/09/2024 5:09 PM EDT BASIC METABOLIC PANEL, PLASMA Routine 10/09/2024 2:38 AM EDT CBC W/O DIFFERENTIAL Routine 10/09/2024 2:38 AM EDT OXYGEN THERAPY Routine 10/08/2024 11:58 AM EDT OXYGEN THERAPY Routine 10/08/2024 11:58 AM EDT OXYGEN THERAPY Routine 10/08/2024 11:58 AM EDT PB ANESTHESIA PLACEHOLDER Routine 10/08/2024 9:46 AM EDT MO AN ELECTIVE ENDOTRACHEAL AIRWAY Routine 10/08/2024 9:46 AM EDT MO LAP, REPAIR PARAESOPHAGEAL HERNIA, INCL FUNDOPLASTY W/ MESH 10/08/2024 9:24 AM EDT Hiatal hernia with gastroesophageal reflux Special Needs [facility] ST 10cm x 10cm , endo cart POCT , URINE Routine 10/08/2024 8:04 AM EDT from Last 3 Months Results * (ABNORMAL) Basic metabolic panel (10/22/2024 2:09 PM EDT) Only the most recent of2 resultswithin the time period is included. Glucose, Plasma 146(H) 74 - 99 mg/dL 10/22/2024 3:09 PM EDT [facility] BUN, Plasma 13 7 - 21 mg/dL 10/22/2024 3:09 PM EDT [facility] Creatinine, Plasma 0.64 0.60 - 1.10 mg/dL 10/22/2024 3:09 PM EDT [facility] BUN/Creatinine Ratio 20 10/22/2024 3:09 PM EDT [facility] Sodium, Plasma 131(L) 136 - 145 mmol/L 10/22/2024 3:09 PM EDT [facility] Potassium, Plasma 3.8 3.6 - 4.9 mmol/L 10/22/2024 3:09 PM EDT [facility] Chloride, Plasma 97 97 - 107 mmol/L 10/22/2024 3:09 PM EDT [facility] CO2, Plasma 22 22 - 29 mmol/L 10/22/2024 3:09 PM EDT [facility] Anion Gap 12 6 - 16 mmol/L 10/22/2024 3:09 PM EDT [facility] Total Calcium, Plasma 9.4 8.9 - 10.2 mg/dL 10/22/2024 3:09 PM EDT [facility] eGFRcr 104.5 mL/min/1.7 3m*2 10/22/2024 3:09 PM EDT [facility] Comment:Reported eGFRcr in m L/min/1.73m2 is based the CKD-EPI 2020 equation that does not use a race coefficient. Blood Venous blood specimen / Unknown Venipuncture / Unknown 10/22/2024 2:09 PM EDT 10/22/2024 2:32 PM EDT us Jay Cadena MD LAB BLOOD ORDERABLES Orlando Hewitt t [facility] [address] [place] [address] * FL Upper GI (10/21/2024 10:36 AM [...] signing this report, I, the attending physician, janelleat I have personally reviewed the images/data for the aboveexamination(s) and agree with the final edited report. Drafted by Ramses Grijalva MD on 10/21/2024 11:30 AM Final report signed by Suzy Rogel MD on 10/21/2024 1:10 PM Toyin Levy MD IMG FLUOROSCOPY PROCEDURES Hellen l Result * Urine Webb Panel (10/20/2024 2:23 PM EDT) Extra Reflex urine culture not indicated 10/20/2024 11:01 PM EDT [facility] Comment: Previously prelim verified as Specimen [...] PM EDT 10/20/2024 2:26 PM EDT us Ziyad DAS LAB URINE ORDERABLES Final Resul t [facility] [address] [place] [address] * (ABNORMAL) Urinalysis with reflex microscopic (Culture NOT Included) (10/20/2024 2:23 PM EDT) Color, Urine Yellow LAB URINALYSIS - AUTOMATED METHOD 10/20/2024 2:29 PM EDT [facility] Clarity, Urine Clear LAB URINALYSIS - AUTOMATED METHOD 10/20/2024 2:29 PM EDT [facility] Spec Rose[place], Urine 1.007 1.005 - 1.030 LAB URINALYSIS - AUTOMATED METHOD 10/20/2024 2:29 PM EDT [facility] pH, Urine 7.0 5.0 - 8.0 LAB URINALYSIS - AUTOMATED METHOD 10/20/2024 2:29 PM EDT [facility] Protein, Urine Negative Negative mg/dL LAB URINALYSIS - AUTOMATED METHOD 10/20/2024 2:29 PM EDT [facility] Glucose, Urine Negative Negative mg/dL LAB URINALYSIS - AUTOMATED METHOD 10/20/2024 2:29 PM EDT [facility] Ketones, Urine Trace(A) Negative mg/dL LAB URINALYSIS - AUTOMATED METHOD 10/20/2024 2:29 PM EDT [facility] Blood, Urine Negative Negative LAB URINALYSIS - AUTOMATED METHOD 10/20/2024 2:29 PM EDT [facility] Bilirubin, Urine Negative Negative LAB URINALYSIS - AUTOMATED METHOD 10/20/2024 2:29 PM EDT [facility] Urobilinogen, Urine 0.2 0.2 to 1.0 mg/dL LAB URINALYSIS - AUTOMATED METHOD 10/20/2024 2:29 PM EDT [facility] Leukocytes, Urine Negative Negative LAB URINALYSIS - AUTOMATED METHOD 10/20/2024 2:29 PM EDT [facility] Nitrite, Urine Negative Negative LAB URINALYSIS - AUTOMATED METHOD 10/20/2024 2:29 PM EDT [facility] Urine Urine specimen obtained by clean catch procedure / Unknown Non-blood Collection / Unknown 10/20/2024 2:23 PM EDT 10/20/2024 2:26 PM EDT Ziyad Dangelo Ramón DAS LAB URINE ORDERABLES Final Resul t [facility] [address] [place] [address] * CT Abdomen Pelvis w IV Contrast [...] Becca Javier MD on 10/20/2024 2:[address] [facility] [address] PROCEDURES Final Result * XR Chest [...] Javier MD on 10/20/2024 3:23 PM us Ziyad DAS IMG XR PROCEDURES Final Result * Troponin now and 120 min (10/20/2024 1:19 PM EDT) Troponin T, High Sensitivity, 0 Hour <6 <14 ng/L 10/20/2024 1:43 PM EDT [facility] Blood Venous blood specimen / Unknown Venipuncture / Unknown 10/20/2024 1:19 PM EDT 10/20/2024 1:21 PM EDT us Ziyad DAS LAB BLOOD ORDERABLES Final Resul t Performing Organization Address City/[facility]/ZIP Co de Phone Number [facility] [address] [place] [address] * Lactic acid, venous (10/20/2024 1:19 PM EDT) Lactate, Venous, Whole Blood 0.7 0.5 - 2.2 mmol/L LAB HEMATOLOGY METHOD 10/20/2024 1:24 PM EDT [facility] Blood Venous blood specimen / Unknown Venipuncture / Unknown 10/20/2024 1:19 PM EDT 10/20/2024 1:22 PM EDT us Ziyad Melgar PA LAB BLOOD ORDERABLES Final Resul t [facility] [address] [place] [address] * PT-INR (10/20/2024 1:19 PM EDT) Pathologist [facility] Prothrombin Time 14.0 12.0 - 14.3 sec 10/20/2024 1:33 PM EDT [facility] INR 1.1 0.9 - 1.1 10/20/2024 1:33 PM EDT [facility] Blood Venous blood specimen / Unknown Venipuncture / Unknown 10/20/2024 1:19 PM EDT 10/20/2024 1:21 PM EDT Narrative [facility] - 10/20/2024 1:33 PM EDT OPTIMAL INR RANGES FOR PATIENT ON ORAL ANTICOAGULANT THERAPY Prevention of venous thromboembolism INR 2.0 to 3.0 In patients with heart disease: Atrial fibrillation INR 2.0 to 3.0 Valvular heart disease INR 2.0 to 3.0 Tissue heart valves INR 2.0 to 3.0 Mechanical prosthetic valves INR 2.5 to 3.5 Prevention of recurrent AL INR 2.5 to 3.5 Ziyad DAS LAB BLOOD ORDERABLES Final Resul t [facility] [address] [place] [address] * (ABNORMAL) CBC w/diff (10/20/2024 1:19 PM EDT) WBC Count 7.20 3.70 - 10.30 10*3/uL LAB HEMATOLOGY METHOD 10/20/2024 1:24 PM EDT [facility] RBC Count 4.52 3.90 - 5.20 10*6/uL LAB HEMATOLOGY METHOD 10/20/2024 1:24 PM EDT [facility] HGB 12.6 11.2 - 15.7 g/dL LAB HEMATOLOGY METHOD 10/20/2024 1:24 PM EDT [facility] HCT 39.1 34.0 - 45.0 % LAB HEMATOLOGY METHOD 10/20/2024 1:24 PM EDT [facility] Platelet Count 390(H) 155 - 369 10*3/uL LAB HEMATOLOGY METHOD 10/20/2024 1:24 PM EDT [facility] MCV 87 79 - 98 fL LAB HEMATOLOGY METHOD 10/20/2024 1:24 PM EDT [facility] MCH 27.9 26.0 - 32.0 pg LAB HEMATOLOGY METHOD 10/20/2024 1:24 PM EDT [facility] MCHC 32.2 30.7 - 35.5 g/dL LAB HEMATOLOGY METHOD 10/20/2024 1:24 PM EDT [facility] RDW 12.7 11.5 - 14.5 % LAB HEMATOLOGY METHOD 10/20/2024 1:24 PM EDT [facility] MPV 9.9 8.8 - 12.5 fL LAB HEMATOLOGY METHOD 10/20/2024 1:24 PM EDT [facility] nRBC 0.0 <=0.0 per 100 WBCs LAB HEMATOLOGY METHOD 10/20/2024 1:24 PM EDT [facility] Differential Type Automated LAB HEMATOLOGY METHOD 10/20/2024 1:24 PM EDT [facility] Neutrophils % 83 % LAB HEMATOLOGY METHOD 10/20/2024 1:24 PM EDT [facility] Lymphocytes % 10 % LAB HEMATOLOGY METHOD 10/20/2024 1:24 PM EDT [facility] Monocytes % 5 % LAB HEMATOLOGY METHOD 10/20/2024 1:24 PM EDT [facility] Eosinophils % 1 % LAB HEMATOLOGY METHOD 10/20/2024 1:24 PM EDT [facility] Basophils % 1 % LAB HEMATOLOGY METHOD 10/20/2024 1:24 PM EDT [facility] Immature Granulocytes % 0 % LAB HEMATOLOGY METHOD 10/20/2024 1:24 PM EDT [facility] Neutrophils Absolute 5.98 1.60 - 6.10 10*3/uL LAB HEMATOLOGY METHOD 10/20/2024 1:24 PM EDT [facility] Lymphocytes Absolute 0.70(L) 1.20 - 3.90 10*3/uL LAB HEMATOLOGY METHOD 10/20/2024 1:24 PM EDT [facility] Monocytes Absolute 0.36 0.30 - 0.90 10*3/uL LAB HEMATOLOGY METHOD 10/20/2024 1:24 PM EDT [facility] Eosinophils Absolute 0.10 0.00 - 0.50 10*3/uL LAB HEMATOLOGY METHOD 10/20/2024 1:24 PM EDT [facility] Basophils Absolute 0.04 0.00 - 0.10 10*3/uL LAB HEMATOLOGY METHOD 10/20/2024 1:24 PM EDT [facility] Immature Granulocytes Absolute 0.02 0.00 - 0.06 10*3/uL LAB HEMATOLOGY METHOD 10/20/2024 1:24 PM EDT [facility] Blood Venous blood specimen / Unknown Venipuncture / Unknown 10/20/2024 1:19 PM EDT 10/20/2024 1:21 PM EDT Narrative [facility] - 10/20/2024 1:24 PM EDT Therapeutic decision making should be based on absolute values, rather than percentages. [employer] LAB BLOOD ORDERABLES Final Resul t Performing Organization Address City/[facility]/ZIP Co de Phone Number [facility] [address] [place] [address] * Phosphorus (10/20/2024 1:19 PM EDT) Phosphorus, Plasma 3.6 2.5 - 4.5 mg/dL 10/20/2024 1:43 PM EDT [facility] Blood Venous blood specimen / Unknown Venipuncture / Unknown 10/20/2024 1:19 PM EDT 10/20/2024 1:21 PM EDT [employer] LAB BLOOD ORDERABLES Final Resul t Performing Organization Address City/[facility] Co de Phone Number [facility] [address] [place] [address] * Magnesium (10/20/2024 1:19 PM EDT) Magnesium, Plasma 1.9 1.9 - 2.4 mg/dL 10/20/2024 1:43 PM EDT [facility] Blood Venous blood specimen / Unknown Venipuncture / Unknown 10/20/2024 1:19 PM EDT 10/20/2024 1:21 PM EDT [employer] LAB BLOOD ORDERABLES Final Resul t Performing Organization Address City/[facility] Co de Phone Number [facility] [address] [place] [address] * Lipase (10/20/2024 1:19 PM EDT) Lipase, Plasma 61 19 - 63 U/L 10/20/2024 1:43 PM EDT [facility] Blood Venous blood specimen / Unknown Venipuncture / Unknown 10/20/2024 1:19 PM EDT 10/20/2024 1:21 PM EDT us Ziyad DAS LAB BLOOD ORDERABLES Final Resul t Performing Organization Address City/State/[facility] Co de Phone Number [facility] [address] [place] [address] * (ABNORMAL) CMP (10/20/2024 1:19 PM EDT) Pathologist [facility] Glucose, Plasma 108(H) 74 - 99 mg/dL 10/20/2024 1:43 PM EDT [facility] BUN, Plasma 8 7 - 21 mg/dL 10/20/2024 1:43 PM EDT [facility] Creatinine, Plasma 0.71 0.60 - 1.10 mg/dL 10/20/2024 1:43 PM EDT [facility] BUN/Creatinine Ratio 11 10/20/2024 1:43 PM EDT [facility] Sodium, Plasma 135(L) 136 - 145 mmol/L 10/20/2024 1:43 PM EDT [facility] Potassium, Plasma 3.9 3.6 - 4.9 mmol/L 10/20/2024 1:43 PM EDT [facility] Chloride, Plasma 99 97 - 107 mmol/L 10/20/2024 1:43 PM EDT [facility] CO2, Plasma 23 22 - 29 mmol/L 10/20/2024 1:43 PM EDT [facility] Anion Gap 13 6 - 16 mmol/L 10/20/2024 1:43 PM EDT [facility] Total Calcium, Plasma 9.5 8.9 - 10.2 mg/dL 10/20/2024 1:43 PM EDT [facility] Total Protein 7.7 6.3 - 7.9 g/dL 10/20/2024 1:43 PM EDT [facility] Albumin, Plasma 4.5 3.5 - 5.2 g/dL 10/20/2024 1:43 PM EDT [facility] AST, Plasma 17 10 - 35 U/L 10/20/2024 1:43 PM EDT [facility] ALT, Plasma 18 10 - 35 U/L 10/20/2024 1:43 PM EDT [facility] Alkaline Phosphatase, Plasma 79 35 - 104 U/L 10/20/2024 1:43 PM EDT [facility] Total Bilirubin, Plasma 0.3 0.2 - 1.1 mg/dL 10/20/2024 1:43 PM EDT [facility] eGFRcr 100.6 mL/min/1.7 3m*2 10/20/2024 1:43 PM EDT [facility] Comment:Reported eGFRcr in m L/min/1.73m2 is based the CKD-EPI 2020 equation that does not use a race coefficient. Blood Venous blood specimen / Unknown Venipuncture / Unknown 10/20/2024 1:19 PM EDT 10/20/2024 1:21 PM EDT Ziyad DAS LAB BLOOD ORDERABLES Final Resul t Performing Organization Address City/[facility] Co de Phone Number [facility] [address] [place] [address] * (ABNORMAL) Sodium, Plasma (10/09/2024 5:09 PM EDT) Sodium, Plasma 135(L) 136 - 145 mmol/L 10/09/2024 5:36 PM EDT [facility] Blood Venous blood specimen / Unknown Venipuncture / Unknown 10/09/2024 5:09 PM EDT 10/09/2024 5:17 PM EDT Jay Cadena MD LAB BLOOD ORDERABLES Final Resul t [facility] [address] [place] [address] * (ABNORMAL) CBC W/O Differential (10/09/2024 2:38 AM EDT) WBC Count 10.80(H) 3.70 - 10.30 10*3/uL LAB HEMATOLOGY METHOD 10/09/2024 3:17 AM EDT [facility] RBC Count 3.76(L) 3.90 - 5.20 10*6/uL LAB HEMATOLOGY METHOD 10/09/2024 3:17 AM EDT [facility] HGB 10.5(L) 11.2 - 15.7 g/dL LAB HEMATOLOGY METHOD 10/09/2024 3:17 AM EDT [facility] HCT 32.5(L) 34.0 - 45.0 % LAB HEMATOLOGY METHOD 10/09/2024 3:17 AM EDT [facility] Platelet Count 296 155 - 369 10*3/uL LAB HEMATOLOGY METHOD 10/09/2024 3:17 AM EDT [facility] MCV 86 79 - 98 fL LAB HEMATOLOGY METHOD 10/09/2024 3:17 AM EDT [facility] MCH 27.9 26.0 - 32.0 pg LAB HEMATOLOGY METHOD 10/09/2024 3:17 AM EDT [facility] MCHC 32.3 30.7 - 35.5 g/dL LAB HEMATOLOGY METHOD 10/09/2024 3:17 AM EDT [facility] RDW 12.4 11.5 - 14.5 % LAB HEMATOLOGY METHOD 10/09/2024 3:17 AM EDT [facility] MPV 10.9 8.8 - 12.5 fL LAB HEMATOLOGY METHOD 10/09/2024 3:17 AM EDT [facility] nRBC 0.0 <=0.0 per 100 WBCs LAB HEMATOLOGY METHOD 10/09/2024 3:17 AM EDT [facility] Blood Venous blood specimen / Unknown Venipuncture / Unknown 10/09/2024 2:38 AM EDT 10/09/2024 3:14 AM EDT Jay Cadena MD LAB BLOOD ORDERABLES Final Resul t [facility] [address] [place] [id number] * MO AN ELECTIVE ENDOTRACHEAL AIRWAY, PB ANESTHESIA PLACEHOLDER (10/08/2024 9:46 AM EDT) Narrative Lakeshia Simental CRNA, DNP - 10/08/2024 9:46 AM EDT Lakeshia Simental CRNA, DNP 10/08/2024 11:12 AM Airway Date/Time: 10/08/2024 9:46 AM Reason: elective Airway not difficult General Information and Staff Patient location during procedure: OR ARMORED CAR GUARD AND DRIVER: Simental, Lakeshia E, ARMORED CAR GUARD AND DRIVER, DNP Other anesthesia staff: Dena Torres Performed: BLANCA Patient Condition Indications for airway management: anesthesia Patient position: sniffing Final Airway Details Final airway type: endotracheal airway Successful airway: ETT Cuffed: yes Successful intubation technique: direct laryngoscopy Adjuncts used in placement: intubating stylet Endotracheal tube insertion site: oral Blade: Jose Luis Blade size: #3 ETT size (mm): 7.0 Cormack-Lehane Classification: grade IIa - partial view of glottis Placement verified by: chest auscultation and capnometry Cuff volume (mL): 8 Measured from: lips ETT to lips (cm): 21 Ventilation between attempts: BVM Additional Comments Atraumatic. No change to dentition. Marco A Jacobson DO ANESTHESIA ORDERABLES Edited Result - Final * POCT , URINE (10/08/2024 8:04 AM EDT) POCT Test, Urine Negative Males and Non- Females: Negative 10/08/2024 8:11 AM EDT [facility] Motor Setter ID Alfred Bernal 10/08/2024 8:11 AM EDT [facility] Device ID [id number] 10/08/2024 8:11 AM EDT [employer] [facility] Urine Urine specimen obtained by clean catch procedure / Unknown 10/08/2024 8:04 AM EDT 10/08/2024 8:11 AM EDT Jay Cadena MD LAB POINT OF CARE TE ST DOCKED DEVICE UNSOLICITED RESULTS Final Result [facility] [address] [place] [phone] from Last 3 Months Insurance ANTHEM Advance Directives * Full Code (Latest Code Status on File) Date Activated Date Inactivated Comments 10/20/2024 3:21 PM 10/23/2024 12:54 PM Question Answer Comments I have reviewed the capacity from the link above and, if needed, have updated to appropriate status: Yes * Full Code Date Activated Date Inactivated Comments 10/08/2024 11:58 AM 10/09/2024 9:41 PM Question Answer Comments I have reviewed the capacity from the link above and, if needed, have updated to appropriate status: Yes Care Teams Body Shop Worker Relationship Specialty Start Date End Date Jeferson Simental MD [address] [place] [address] PCP - General Family Medicine 09/16/24
--- OUTSIDE RECORDS SUMMARY | 2024-12-13 09:43 | XMS_ITS | Encounter Summary ---
[facility] Address [address] [place] [address] Care Team Providers Care Can Reconditioner Name Role Phone Jeferson Simental MD Primary Care Provider [phone] Encounter Details Date Type Department Care Team (Latest Contact Info) Description 11/28/2024 Travel Social History Tobacco Use Types Packs/Day [...] on file documented as of this encounter Plan of Treatment Upcoming Encounters Date Type Department Care Team (Late st Contact Info) Description 02/18/2025 1:30 PM EDT Office Visit [facility] RHEUMATOLOGY [address] [address] Primo Flores MD [address] [address] 05/14/2025 11:30 AM EST Appointment [facility] [address] [place] [address] 12/04/2025 1:30 PM EDT Office Visit [facility] OBGYN 1700 [facility] [address] [place] [address] Marbella Mendoza MD 1700 [facility] 701 [place] [address] documented as of this encounter Visit Diagnoses Not on filedocumented in this encounter Care Teams Can Reconditioner Relationship Specialty Start Date End Date Jeferson Simental MD [address] [facility] [address] [place] [address] PCP - General Internal Medicine 09/19/24 documented as of this encounter
--- OUTSIDE RECORDS SUMMARY | 2024-12-13 09:43 | XMS_ITS | Clinical Summary ---
Author Organization [facility] Address [address] [place] [address] Care Team Providers Care Manager Field Sales Name Role Phone Emmanuel Hicks MD Primary Care Provider [phone] Social History Tobacco Use Types Packs/Day Years Used Date Smoking Tobacco: Never Assessed Comments Unknown Sex and Gender Information Value Date Recorded Sex Assigned at Not on file Legal Sex Female 8:25 AM EST Gender Identity Not on file Sexual Orientation Not on file Plan of Treatment Health Maintenance Due Date Last Done Comments COLOGUARD 1969 COLONOSCOPY 1969 Colorectal Screening Combination 1969 FIT 1969 HEP C SCREENING 1969 PAP SMEAR EVERY 3 YR (Cervic al Cancer Screen) 1969 SIGMOIDOSCOPY 1969 ANNUAL WELLNESS EXAM 1972 DTAP/TDAP/TD VACCINE (1 - Tdap) 1988 Shingles Vaccine (Shingrix) (1 of 2) 10/16/2019 INFLUENZA VACCINE (#1) 2025 HEP A VACCINE Aged Out No longer elig ible based on patient's age to complete this topic HIB VACCINE Aged Out No longer eligi ble based on patient's age to complete this topic ROTOVIRUS VACCINE Aged Out No longer eligible based on patient's age to complete this topic Insurance [facility] Care Teams Manager Field Sales Relationship Specialty Start Date End Date Emmaneul Hicks MD [address] [place] [address] PCP - General Internal Medicine 04/10/20
--- OUTSIDE RECORDS SUMMARY | 2024-12-13 09:43 | XMS_ITS | Encounter Summary ---
[facility] Address [address] [place] [id number] Care Team Providers Care Md Do Resident Urgent Care Name Role Phone Jeferson Simental MD Primary Care Provider [phone] Reason for Visit * Reason Comments Med Refill Encounter Details Date Type Department Care Team (Late Contact Info) Description 10/31/2024 Refill [facility] OBGYN [address] [address] Marbella Mendoza MD 1700 [facility] [address] [place] [address] Hormone replacement therapy (HRT) Social History Tobacco Use Types Packs/Day Years Used Date Smoking Tobacco: Never Passive Smoke Exposure: Past Smokeless Tobacco: Never Alcohol Use Standard Drinks/Week Comments Yes 5 (1 standard drink = 0.6 oz [...] Encounters Date Type Department Care Team (Late Contact Info) Description 02/18/2025 1:30 PM EDT Office Visit [facility] RHEUMATOLOGY [address] [place] [address] Primo Flores MD 330 [facility] [address] [place] [address] 05/14/2025 11:30 AM EST Appointment [facility] [address] [place] [address] 12/04/2025 1:30 PM EDT Office Visit [facility] OBGYN 1700 [facility] [address] [place] [address] Marbella Mendoza MD 1700 [facility] [address] [place] [address] documented as of this encounter Visit Diagnoses Diagnosis Hormone replacement therapy (HRT) documented in this encounter Care Teams Md Do Resident Urgent Care Relationship Specialty Start Date End Date Jeferson Simental MD [facility] [address] [place] [address] PCP - General Internal Medicine 09/19/24 documented as of this encounter
--- OUTSIDE RECORDS SUMMARY | 2024-12-13 09:43 | XMS_ITS | Encounter Summary ---
Author Organization [facility] Address [address] [place] [address] Care Team Providers Care Machines Technician Name Role Phone Jeferson Simental MD Primary Care Provider [phone] Encounter Details Date Type Department Care Team (Latest Contact Info) Description 11/13/2024 Travel Social History Tobacco Use Types Packs/Day [...] any time in the past 12 m [facility], were you homeless or living in a long term (including now)? No 10/21/2024 Utilities Answer Date [...] Description 12/31/2024 1:15 PM EDT Office Visit [facility] Medicine Specialties [address] [place] [address] Alida Roberts, JEFF, DNP [address] [place] [address] 02/12/2025 9:30 AM EDT Appointment [facility] [address] [place] [address] 02/12/2025 1:40 PM EDT Office Visit [facility] General Surgery [address], [address] [place] [address] Jay Cadena MD 2[address] [facility] 2nd [place] [address] 04/09/2025 1:00 PM EST Ovarian Cancer Screening [facility] [address] 3rd [place] [address] documented as of this encounter Visit Diagnoses [...] documented as of this encounter Care Teams Machines Technician Relationship Specialty [place] [address] [place] [address] PCP - General Family Medicine 09/16/24 documented as of this encounter
--- OUTSIDE RECORDS SUMMARY | 2024-12-13 09:43 | XMS_ITS | Encounter Summary ---
Author Organization [facility] Address [address] [place] [address] Care Team Providers Care Resaw Feeder Name Role Phone Jeferson Simental MD Primary Care Provider [phone] Encounter Details Date Type Department Care Team (Late st Contact Info) Description 11/18/2024 Telephone [facility] General Surgery [address] [place] [address] Mickie Bach RN [facility] Social History Tobacco Use Types Packs/Day Years [...] money to buy more. Never true 10/22/19 Within the past 12 months, t he [...] any time in the past 12 m [facility], were you homeless or living in a chcf (including now)? No 10/21/2024 Utilities Answer Date [...] on file documented as of this encounter Miscellaneous Notes * Telephone Encounter - Mickie Bach RN - 11/18/2024 8:32 AM EDT Lois Dooley called this morning to discuss current dietary issues. She said after she saw Dr. Cadena on 11/13/24, she tried tuna sandwich which did ok but then tried beef and has had some issues since. Advised pt to progress slowly and that beef and bread items may be last foods to incorporate back in to her diet. Will call back if further issues. documented in this encounter Plan of Treatment Upcoming Encounters Date Type Department Care Team (Late st Contact Info) Description 12/31/2024 1:15 PM EDT Office Visit [facility] Medicine Specialties [address]nd [place] [address] Alida Roberts APRN, DNP [address] [place] [address] 02/12/2025 9:30 AM EDT Appointment [facility] [address] [place] [address] 02/12/2025 1:40 PM EDT Office Visit [facility] General Surgery [address] [place] [address] Jay Cadena MD [address] [address] 04/09/2025 1:00 PM EST Ovarian Cancer Screening [facility] Gynecology 800 [facility], 3rd [place] [address] documented as of this encounter Visit Diagnoses [...] documented as of this encounter Care Teams Resaw Feeder Relationship Specialty Start Date End Date Jeferson Simental MD [address] [place] [address] PCP - General Family Medicine 09/16/24 documented as of this encounter
--- OUTSIDE RECORDS SUMMARY | 2024-12-13 09:43 | XMS_ITS | Encounter Summary ---
[facility] Organization [facility] Address [address] [place] [id number] Care Team Providers Care Client Support Analyst Name Role Phone Jeferson Simental MD Primary Care Provider [phone] Reason for Visit * Reason Onset Date Comments STARK- PRESCRIPTION ISSUE 10/10/2024 Encounter Details Date Type Department Care Team (Late st Contact Info) Description 10/10/2024 Telephone [facility] OBGYN 1700 [facility] [address] [place] [address] Ga Stark, AIR DRIER MACHINE OPERATOR 1700 [facility] [address] [place] [address] STARK- PRESCRIPTION ISSUE Social History Tobacco Use Types Packs/Day Years [...] encounter Miscellaneous Notes * Telephone Encounter - Jimi Tobar RN - 10/14/2024 8:22 AM EDT Update on the PA for COMBIPATCH 0.05-0.14 MG PTCH We can approve the drug itself. We???ve approved 8 patches per 28 days; from 10/10/2024 to 10/10/2025. The amount requested on the PA was incorrect. I called [facility] to follow up and she had that transferred to [facility]. * Telephone Encounter - Jimi Tobar RN - 10/10/2024 1:08 PM EDT (Guerra: [id number]) PA Drug CombiPatch 0.05-0.14MG/DAY biweekly patches [employer] PA Form. I called the pharmacy and Combipatch is non formulary * Telephone Encounter - Salvatore Merchant RegSched Rep - 10/10/2024 12:39 PM EDT Caller: Lois Dooley Relationship: Self Best call back number: [phone] What is the best time to reach you: ANY Who are you requesting to speak with (clinical staff, provider, specific staff member): CLINICAL What was the call regarding: PT STATES PHARMACY HAS CALLED HER STATING THERE IS AN ISSUE WITH estradiol-norethindrone (COMBIPATCH) 0.05-0.14 MG/DAY patch REQUESTING A CALL BACK TO DISCUSS. documented in this encounter Plan of Treatment Upcoming Encounters Date Type Department Care Team (Late st Contact Info) Description 02/18/2025 1:30 PM EDT Office Visit [facility] RHEUMATOLOGY [address] [phone] Primo Flores MD [address] [address] 05/14/2025 11:30 AM EST Appointment [facility] [address] [place] [address] 12/04/2025 1:30 PM EDT Office Visit [facility] OBGYN 1700 [facility] [address] [place] [address] Marbella Mendoza MD 1700 [facility] [address] [place], [place] [phone] documented as of this encounter Visit Diagnoses Not on filedocumented in this encounter Care Teams Client Support Analyst Relationship Specialty Start Date End Date Jeferson Simental MD [address] [facility] [address] [place] [address] PCP - General Internal Medicine 09/19/24 documented as of this encounter
--- OUTSIDE RECORDS SUMMARY | 2024-12-13 09:43 | XMS_ITS | Clinical Summary ---
Author Organization [employer] ([place], [place], [place], [place]) Address [address] [place] [address] Care Team Providers Care President/Gm Production & Live Experiences Name Role Phone Emmanuel Hicks MD Primary Care Provider [phone] Allergies Active Allergy Reactions Criticality Noted Date Comments Sulfa (Sulfonamide Antibiotics) Hives High 09/2023 Medications esomeprazole (NexIUM) 40 MG capsule Take 1 capsule (40 mg total) by mouth daily. 4 Active estradioL (VIVELLE-DOT) 0.05 mg/24 hr patch 1 patch twice a week. 4 Active lisinopriL (PRINIVIL,ZESTR IL) 10 MG tablet Take 1 tablet (10 mg total) by mouth daily. 4 Active progesterone (PROMETRIUM) 100 MG capsule Take 1 capsule (100 mg total) by mouth daily. 4 Active nitroglycerin (NITROSTAT) 0.4 MG SL tablet Put 1 pill under tongue every 5min as needed for chest pain.No more than 3 doses in 15min.Call 911 if pain unrelieved 5min after 1st dose. 90 tablet 4 04/01/20 25 Active Active Problems Problem Noted Date Diagnosed Date Chest pain, unspecified type 03/26/2024 Social History Tobacco Use Types Packs/Day Years Used Date Smoking Tobacco: Never Passive Smoke Exposure: Never Smokeless Tobacco: Never Tobacco Cessation:Counseling Given: Not Answered Alcohol Use Standard Drinks/Week Comments Yes 0 (1 standard drink = 0.6 oz pur e alcohol) occasionally Family and Community Support Answer Rosas e Recorded Help with Day to Day Activities Not on file 09/17/2023 Feeling Lonely or Isolated Not on file 09/16 Educational Attainment Answer Date Jesus rded Speak language other than [place] at home Not on file 09/17/2023 Want help with school or training Not on file 09/17/2023 Substance Use Answer Date Recorded Used prescription meds for non-medical reasons N ot on file 09/17/2023 Used illegal drugs past 12 months Not on file 09/17/2023 Comments No Sex and Gender Information Value Date Recorded Sex Assigned at Not on file Legal Sex Female 6:58 PM CDT Gender Identity Not on file Sexual Orientation Not on file Last Filed Vital Signs Vital Sign Reading Time Taken Comments Blood Pressure 156/85 07/07/2024 2:26 PM EST Pulse 66 07/07/2024 2:26 PM EST Temperature 36.8 C (98.3 F) 07/07/2024 10:31 AM EST Respiratory Rate 24 07/07/2024 2:26 PM EST Oxygen Saturation 100% 07/07/2024 2:26 PM EST Inhaled Oxygen Concentration - - Weight 65.8 kg (145 lb) 07/07/2024 10:31 AM EST Height 157.5 cm (5' 2 ) 07/07/2024 10:31 AM EST Body Mass Index 26.52 07/07/2024 10:31 AM EST Plan of Treatment Health Maintenance Due Date Last Done Comments CT Colonography 1969 Colonoscopy 1969 Colorectal Cancer Screening 1969 FOBT/FIT 1969 Fit-DNA (Cologuard) 1969 Sigmoidoscopy 1969 Depression Screening (12+) 1981 HIV Screening 1984 Hepatitis C Screening 10/16/1987 Pap Smear 1990 Lipid Panel 2014 Pneumococcal 50+ years (1 of 1 - PCV) 10/16/2019 Breast Cancer Screening 05/10/2023 05/10/20, 05/06/2020, 05/02/2019, Additional history exists COVID-19 VACCINE (5 - 2023-2 5 season) 2024 02/01/2022, 02/01/2022, 04/28/2021, Additional history exists Influenza Vaccine (#1) 2025 02/02/2023, 2021 Tobacco Cessation Counseling and Screening (12+) 07/07/2025 07/07/2024 DTAP/TDAP/TD VACCINES (2 - T d or Tdap) 10/23/2029 10/24/2019 Shingles Vaccine (Zoster) Completed 2021, 09/29/2021, 05/19/2021 Insurance BLUE CROSS/BLUE SHIELD Care Teams President/Gm Production & Live Experiences Relationship Specialty Start Date End Date Emmanuel Hicks MD [address] [place] [address] [place] [address] PCP - General General Internal Medicine 09/17/23
--- OUTSIDE RECORDS SUMMARY | 2024-12-13 09:43 | XMS_ITS | Encounter Summary ---
[facility] Address [address] [place] [id number] Care Team Providers Care Interior Painter Name Role Phone Jeferson Simental MD Primary Care Provider [phone] Reason for Visit * Reason Comments Med Refill Encounter Details Date Type Department Care Team (Late Contact Info) Description 11/27/2024 Refill [facility] OBGYN [address] [address] Marbella Mendoza MD 1700 [facility] [address] [place] [address] Hormone replacement therapy (HRT) Social History Tobacco [...] Description 02/18/2025 1:30 PM EDT Office Visit [facility] RHEUMATOLOGY [address] [place] [address] Primo Flores MD 330 [facility] 100 [place] [address] 05/14/2025 11:30 AM EST Appointment [facility] [address] [place] [address] 12/04/2025 1:30 PM EDT Office Visit [facility] OBGYN 1700 [facility] 701 [place] [address] Marbella Mendoza MD 1700 [facility] [address] [place] [address] documented as of this encounter Visit Diagnoses Diagnosis Hormone replacement therapy (HRT) documented in this encounter Care Teams Interior Painter Relationship Specialty Start Date End Date Jeferson Simental MD [facility] [address] [place] [address] PCP - General Internal Medicine 09/19/24 documented as of this encounter
--- OUTSIDE RECORDS SUMMARY | 2024-12-13 09:43 | XMS_ITS | Referral Summary ---
Author Organization [employer] ([place], [place], [place], [place]) Address [address] [place] [address] Care Team Providers Care Automotive Parts Specialist Name Role Phone Emmanuel Hicks MD Primary Care Provider [phone] Allergies Active Allergy Reactions Criticality Noted Date [...] Date Jesus rded Speak language other than Polish at home Not on file 09/17/2023 Want [...] 07/07/2024 10:31 AM EST Plan of Treatment Not on file Insurance BLUE CROSS/BLUE SHIELD Care Teams Automotive Parts Specialist Relationship Specialty Start Date End Date Emmanuel Hicks MD [address] [place], [place] [address] [place] [address] PCP - General General Internal Medicine 09/17/23
--- OUTSIDE RECORDS SUMMARY | 2024-12-13 09:43 | XMS_ITS | Encounter Summary ---
Author Organization Healthcare Address [address] [place] [address] Care Team Providers Care Block Layer Name Role Phone Jeferson Simental MD Primary Care Provider [phone] Encounter Details Date Type Department Care Team (Late st Contact Info) Description 12/05/2024 Telephone [facility] General Surgery [address] 1st [place] [address] Mickie Bach RN [facility] Social History Tobacco Use Types [...] any time in the past [address] [facility], were you homeless or living in a [...] Miscellaneous Notes * Telephone Encounter - Mickie Bach, RN - 12/05/2024 3:05 PM EDT Lois Dooley called about symptoms from 10/08/24 surgery. She said she's been able to tolerate more protein foods, having some burning sensation postprandial. Will be getting iron infusions from PCP. Says her wt is about 132#. She will continue to try more solid foods using small bites and drinks in between. Will call back in 2 weeks if burning sensation continues. documented in this encounter Plan of Treatment Upcoming Encounters Date Type Department Care Team (Late st Contact Info) Description 12/31/2024 1:15 PM EDT Office Visit [facility] Medicine Specialties [address] [place] [address] Alida Roberts APRN, DNP [address] [place] [address] 02/12/2025 9:30 AM EDT Appointment [facility] [address] [place] [address] 02/12/2025 1:40 PM EDT Office Visit [facility] General Surgery [address], 1[address] [place] [address] Jay Cadena MD [address] [address] 04/09/2025 1:00 PM EST Ovarian Cancer Screening [facility] [address] 3rd [place] [address] documented as of this encounter Visit Diagnoses [...] documented as of this encounter Care Teams Block Layer Relationship Specialty Start Date End Date Jeferson Simental MD [address] [place] [address] PCP - General Family Medicine 09/16/24 documented as of this encounter
--- OUTSIDE RECORDS SUMMARY | 2024-12-13 09:43 | XMS_ITS | Clinical Summary ---
Author Organization [facility] Address [address] [facility] [address] [place] [address] Care Team Providers Care Smoke Room Operator Name Role Phone Emmanuel Hicks MD Primary Care Provider + Social History Tobacco Use Types Packs/Day Years Used Date Smoking Tobacco: Never Assessed Comments Unknown Sex and Gender Information Value Date Recorded Sex Assigned at Not on file Legal Sex Female 9:32 AM EDT Gender Identity Not on file Sexual Orientation Not on file Plan of Treatment Health Maintenance Due Date Last Done Comments CT Colonography 1969 Colonoscopy 1969 Colorectal Cancer Screening 1969 FIT-DNA (Cologuard) 1969 FIT 1969 FOBT 1969 HIV Screening 1969 Hepatitis C Screening 1969 Sigmoidoscopy 1969 MMR Vaccines (1 of 1 - Stand dimitrios series) 1970 Hepatitis B Screening 10/16/1987 DTaP/Tdap/Td Vaccines (1 - Tdap) 1988 Hepatitis B Vaccines (1 of 3 - 19+ 3-dose series) 1988 Pap Smear 1990 Cervical Cancer Screening 10/16/1999 HPV/Cotest 10/16/1999 Mammogram 2009 Pneumococcal Vaccine: 50+ Ye ars (1 of 1 - PCV) 10/16/2019 Zoster Vaccines (1 of 2) 10/16/2019 COVID-19 Vaccine ( - 2023-2 5 season) 2024 Depression Risk Screening 05/15/2024 SDOH Screening 05/15/2024 Influenza Vaccine (#1) 2025 HIB Vaccines Aged Out No longer eligi ble based on patient's age to complete this topic HPV Vaccines Aged Out No longer eligi ble based on patient's age to complete this topic Hepatitis A Vaccines Aged Out No long er eligible based on patient's age to complete this topic IPV Vaccines Aged Out No longer eligi ble based on patient's age to complete this topic Meningococcal B Vaccine Aged Out No l onger eligible based on patient's age to complete this topic Meningococcal Vaccine Aged Out No anthony bryce eligible based on patient's age to complete this topic Rotavirus Vaccines Aged Out No longer eligible based on patient's age to complete this topic Insurance [facility] Care Teams Smoke Room Operator Relationship Specialty Start Date End Date Emmanuel Hicks MD [address] [place] [address] PCP - General Internal Medicine 08/14/24
--- OUTSIDE RECORDS SUMMARY | 2024-12-13 09:43 | XMS_ITS | Encounter Summary ---
Author Organization Healthcare Address [address] [place] [address] Care Team Providers Care Family Literacy Coordinator Name Role Phone Emmanuel Hicks MD Primary Care Provider + [phone] Jeferson Simental MD Primary Care Provider [phone] Encounter Details Date Type Department Care Team (Late Contact Info) Description 08/09/2024 Orders Only External Location [address] [place] [address] Provider, External Social History Tobacco Use Types Packs/Day Years Used Date Smoking Tobacco: Never Smokeless Tobacco: Never Alcohol Use Standard Drinks/Week Comments Not Currently 0 (1 standard drink = 0.6 oz pure alcohol) 1 glass of wine every few months Comments No Sex and Gender Information Value Date Recorded Sex Assigned at Not on file Legal Sex Female 6:10 PM EDT Gender Identity Not on file Sexual Orientation Not on file documented as of this encounter Plan of Treatment Upcoming Encounters Date Type Department Care Team (Late Contact Info) Description 12/31/2024 1:15 PM EDT Office Visit [facility] Medicine Specialties [address], [address] [place] [address] Alida Roberts, JEFF, DNP [address] [place] [address] 02/12/2025 9:30 AM EDT Appointment [facility] Radiology [address] [place] [address] 02/12/2025 1:40 PM EDT Office Visit [facility] General Surgery [address], [address] [place] [address] Jay Cadena MD [address] [facility] 2nd [place] [address] 04/09/2025 1:00 PM EST Ovarian Cancer Screening [facility] [address], 3rd [place] [address] documented as of this encounter Procedures Procedure Name Priority Date/Time Associated Diagnosis Comments CT OUTSIDE IMAGES 08/09/2024 1:23 PM EDT documented in this encounter Results * CT OUTSIDE IMAGES (08/09/2024 1:23 PM EDT) Anatomical Region Laterality Modality Computed Tomogra phy 08/09/2024 1:23 PM EDT us External Provider IMG CT PROCEDURES Final Result documented in this encounter Visit Diagnoses Not on filedocumented in this encounter Additional Health Concerns Assessment Noted Time A Body Mass Index follow-up plan has been documented for the patient 08/16/2024 11:08 AM EDT documented as of this encounter Care Teams Family Literacy Coordinator Relationship Specialty Start Date End Date Emmanuel Hicks MD [address] [place] [address] PCP - General 09/25/20 09/15/24 Jeferson Simental MD [address] [place] [address] PCP - General Family Medicine 09/16/24 documented as of this encounter
--- OUTSIDE RECORDS SUMMARY | 2024-12-13 09:43 | XMS_ITS | Encounter Summary ---
Author Organization [employer] ([place], [place], [place], [place]) Address [address] [place] [address] Care Team Providers Care Drafting Instructor Name Role Phone Emmanuel Hicks MD Primary Care Provider [phone] Reason for Referral * CAT Scan (Routine) - Closed Specialty Diagnoses / Procedures Referred By Contac t Referred To Contact Radiology Diagnoses Other specified disorders of kidney and ureter Procedures CT ABDOMEN/PELVIS WITH & WITHOUT IV CONTRAST Camille Tim PA [address] [address] Phone: tel: fax: [facility] CT Imaging [address] [place] [address] Phone: tel: fax: Referral ID Status Reason Start Date Expiration Date Visits Re quested Visits Authorized [id number] Closed 08/01/2024 08/30/2024 1 1 Encounter Details Date Type Department Care Team (Late st Contact Info) Description 08/07/2024 Outside Orders [facility] Central Scheduling 1 [place] [address] Camille Tim PA [address] [place] [address] Other specified disorders of kidney and ureter (Primary Dx) Social History Tobacco Use Types Packs/Day Years Used Date Smoking Tobacco: Never Passive Smoke Exposure: Never Smokeless Tobacco: Never Alcohol Use Standard Drinks/Week Comments Yes 0 (1 standard drink = 0.6 oz pur e alcohol) occasionally Family and Community Support Answer Rosas e Recorded Help with Day to Day Activities Not on file 09/17/2023 Feeling Lonely or Isolated Not on file 09/16 Educational Attainment Answer Date Jesus rded Speak language other than Vietnamese at home Not on file 09/17/2023 Want [...] as of this encounter Plan of Treatment Not on file documented as of this encounter Results * CT ABDOMEN/PELVIS WITH & WITHOUT IV CONTRAST (08/09/2024 1:35 PM EDT) Anatomical Region Laterality Modality Abdomen, Pelvis Computed Tomogra phy (CT) 08/09/2024 3:00 PM EDT Impressions 08/09/2024 3:03 PM EDT No acute intra-abdominal process . Images reviewed, interpreted, and dictated by Dr. Loy Vizcarra. Transcribed by Smooth Gillis PA-C Narrative 08/09/2024 3:[address] SCAN OF THE ABDOMEN AND PELVIS WITH AND WITHOUT CONTRAST 08/09/2024 1:16 PM HISTORY: Periumbilical and right lower quadrant pain. COMPARISON: None. PROCEDURE: The patient was injected with IV contrast. Axial images were obtained from the lung bases to the pubic symphysis by computed tomography. Pre-contrast images of the abdomen and pelvis were also obtained. This study was performed with techniques to keep radiation doses as low as reasonably achievable, (ALARA). Individualized dose reduction techniques using automated exposure control or adjustment of mA and/or kV according to the patient size were employed. FINDINGS: ABDOMEN: The lung bases are clear . The heart is normal in size . The liver is normal . Gallbladder is surgically absent. The spleen is unremarkable . No adrenal mass is present . The pancreas is normal . The kidneys are normal . The aorta is normal in caliber . There is no free fluid or adenopathy . Pre-contrast images demonstrate no evidence of nephrolithiasis . PELVIS: The appendix is not identified . The uterus is midline. Urinary bladder is unremarkable . There is no significant free fluid or adenopathy . Procedure Note Elpidio Vizcarra MD - 08/09/2024 CT SCAN OF THE ABDOMEN AND PELVIS WITH AND WITHOUT CONTRAST 08/09/2024 1:16 PM HISTORY: Periumbilical and right lower quadrant pain. COMPARISON: None. PROCEDURE: The patient was injected with IV contrast. Axial images were obtained from the lung bases to the pubic symphysis by computed tomography. Pre-contrast images of the abdomen and pelvis were also obtained. This study was performed with techniques to keep radiation doses as low as reasonably achievable, (ALARA). Individualized dose reduction techniques using automated exposure control or adjustment of mA and/or kV according to the patient size were employed. FINDINGS: ABDOMEN: The lung bases are clear . The heart is normal in size . The liver is normal . Gallbladder is surgically absent. The spleen is unremarkable . No adrenal mass is present . The pancreas is normal . The kidneys are normal . The aorta is normal in caliber . There is no free fluid or adenopathy . Pre-contrast images demonstrate no evidence of nephrolithiasis . PELVIS: The appendix is not identified . The uterus is midline. Urinary bladder is unremarkable . There is no significant free fluid or adenopathy . IMPRESSION: No acute intra-abdominal process . Images reviewed, interpreted, and dictated by Dr. Loy Vizcarra. Transcribed by Smooth Gillis PA-C Camille DAS Dwain CT ORDERABLES Final Result documented in this encounter Visit Diagnoses Diagnosis Other specified disorders of kidney and ureter- Primary Other specified disorders of kidney and ureter documented in this encounter Care Teams Drafting Instructor Relationship Specialty Start Date End Date Emmanuel Hicks MD [address] [place] [address] [place] [address] PCP - General General Internal Medicine 09/17/23 documented as of this encounter
--- OUTSIDE RECORDS SUMMARY | 2024-12-13 09:43 | XMS_ITS | Encounter Summary ---
Author Organization Healthcare Address [address] [place] [address] Care Team Providers Care Command And Control Specialist Name Role Phone Jeferson Simental MD Primary Care Provider [phone] Encounter Details Date Type Department Care Team (Latest Contact Info) Description 10/20/2024 Travel Social History Tobacco Use Types Packs/Day [...] were you homeless or living in a correction (including now)? No 10/21/2024 Utilities Answer Date [...] Date of Assessment Author No Risk Indicated 10/20/2024 8:00 PM EDT Fowler, O ctavia * Question Answer Date of Assessment Author 1. Wish to be (Past 1 Month) No 025 8:00 PM EDT Fowler, Katheryn 2. Non-Specific Active Suici tai Thoughts (Past 1 Month) No 10/20/2024 8:00 PM EDT Fowler, [place] 6. Suicidal Behavior (Lifetime) No 8:00 PM EDT Fowler, Katheryn documented as of this encounter Plan of Treatment Upcoming Encounters Date Type Department Care Team (Late st Contact Info) Description 12/31/2024 1:15 PM EDT Office Visit [facility] Medicine Specialties [address], [address] [place] [address] Alida Roberts APRN, DNP [address] [place] [address] 02/12/2025 9:30 AM EDT Appointment [facility] Radiology [address] [place] [address] 02/12/2025 1:40 PM EDT Office Visit [facility] General Surgery [address], [address] [place] [address] Jay Cadena MD [address] [place] [address] 04/09/2025 1:00 PM EST Ovarian Cancer Screening [facility] Gynecology [address] [facility], 3rd [place] [address] documented as of this encounter Visit Diagnoses [...] documented as of this encounter Care Teams Command And Control Specialist Relationship Specialty Start Date End Date Jeferson Simental MD [address] [place] [address] PCP - General Family Medicine 09/16/24 documented as of this encounter
--- OUTSIDE RECORDS SUMMARY | 2024-12-13 09:43 | XMS_ITS | Encounter Summary ---
Author Organization [employer] ([place], [place], [place], [place]) Address [address] [place] [address] Care Team Providers Care Creative Art Director Name Role Phone Emmanuel Hicks MD Primary Care Provider [phone] Reason for Referral * CAT Scan (Routine) - Closed Specialty Diagnoses / Procedures Referred By Contac t Referred To Contact Radiology Diagnoses Chronic sinusitis, unspecified location Procedures CT sinus without iv contrast Pritesh Jacobsen MD [address] [address] Phone: tel: fax: Referral ID Status Reason Start Date Expiration Date Visits Re quested Visits Authorized [id number] Closed 12/26/2023 01/24/2024 1 1 Encounter Details Date Type Department Care Team (Late st Contact Info) Description 12/26/2023 Outside Orders [facility] Central Scheduling [address] [place] [address] Pritesh Jacobsen MD [facility] [place] [address] Chronic sinusitis, unspecified location (Primary Dx) Social History Tobacco Use Types [...] Date Jesus rded Speak language other than Romanian at home Not on file 09/17/2023 Want help with school or training Not on file 09/17/2023 Substance Use Answer Date Recorded Used prescription meds for non-medical reasons N ot on file 09/17/2023 Used illegal drugs past 12 months Not on file 09/17/2023 Comments Unknown Sex and Gender Information Value Date Recorded Sex Assigned at Not on file Legal Sex Female 6:58 PM CDT Gender Identity Not on file Sexual Orientation Not on file documented as of this encounter Plan of Treatment Not on file documented as of this encounter Results * CT sinus without iv contrast (01/10/2024 2:29 PM EDT) Anatomical Region Laterality Modality Sinus, Head, Brain Computed Cruz graphy (CT) 01/10/2024 3:36 PM EDT Impressions 01/10/2024 4:59 PM EDT Chronic left maxillary sinusitis. Images reviewed, interpreted, and dictated by Dr. Etelvina Beavers. Transcribed by Dexter Moore PA-C. Narrative 01/10/2024 4:[address] SCAN OF THE PARANASAL SINUSES HISTORY: Chronic sinusitis. PROCEDURE: Axial and coronal images through the paranasal sinuses were obtained by computed tomography. This study was performed with techniques to keep radiation doses as low as reasonably achievable, (ALARA). Individualized dose reduction techniques using automated exposure control or adjustment of mA and/or kV according to the patient size were employed. FINDINGS: There is mucoperiosteal thickening of the floor of the left maxillary sinus. There are no air-fluid levels. The maxillary infundibulum are patent. There is very mild leftward nasal septal deviation. The mastoid air cells are clear. There are several, mildly enlarged submental lymph nodes which is nonspecific. Procedure Note Etelvina Beavers MD - 01/10/2024 CT SCAN OF THE PARANASAL SINUSES HISTORY: Chronic sinusitis. PROCEDURE: Axial and coronal images through the paranasal sinuses were obtained by computed tomography. This study was performed with techniques to keep radiation doses as low as reasonably achievable, (ALARA). Individualized dose reduction techniques using automated exposure control or adjustment of mA and/or kV according to the patient size were employed. FINDINGS: There is mucoperiosteal thickening of the floor of the left maxillary sinus. There are no air-fluid levels. The maxillary infundibulum are patent. There is very mild leftward nasal septal deviation. The mastoid air cells are clear. There are several, mildly enlarged submental lymph nodes which is nonspecific. IMPRESSION: Chronic left maxillary sinusitis. Images reviewed, interpreted, and dictated by Dr. Etelvina Beavers. Transcribed by Dexter Moore PA-C. Pritesh Jacobsen MD IMG CT ORDERABLES Final Resul t documented in this encounter Visit Diagnoses Diagnosis Chronic sinusitis, unspecified location- Primary Chronic sinusitis, unspecified location documented in this encounter Care Teams Creative Art Director Relationship Specialty Start Date End Date Emmanuel Hicks MD [address] [place] [address] [place] [address] PCP - General General Internal Medicine 09/17/23 documented as of this encounter
[2024-12-13] MEDS: ferumoxytoL 510 MG in 0.9 % SODIUM CHLORIDE 50 ML 268 MG IV (09:54)
[2024-12-13] MEDS: 0.9 % SODIUM CHLORIDE 50 ML 25 ML IV (09:55)
[2024-12-13] MEDS: 0.9 % SODIUM CHLORIDE 250 ML IV (10:09)
== END 2024-12-13 12:20 | disposition home or self-care (01) ==
LOC: INF 09:40
PROVIDERS: PCP Internal Medicine; Visit Provider Internal Medicine Medical Oncology
DX: D50.9 Iron deficiency anemia, unspecified (principal); T88.7XXA Unspecified adverse effect of drug or medicament, initial encounter; X58.XXXA Exposure to other specified factors, initial encounter; Y93.9 Activity, unspecified
CPT/HCPCS: 96360; 96374; 96375; J1200; J7050; Q0138

== ENCOUNTER 2024-12-23 09:45 | Outpatient (CLI) | payer BC, SELFPAY ==
--- OUTSIDE RECORDS SUMMARY | 2024-11-13 09:10 | XMS_ITS | Encounter Summary ---
Author Organization Healthcare Address [address] [place] [address] Care Team Providers Care Housekeeping Room Attendant Name Role Phone Jeferson Simental MD Primary Care Provider [phone] Reason for Referral * Imaging (Routine) - Pending Review Specialty Diagnoses / Procedures Referred By Contac t Referred To Contact Radiology Diagnoses Gastroesophageal reflux disease with esophagitis without hemorrhage Procedures [place] Upper GI Jay Cadena MD [address] [address] Phone: tel: fax: Referral ID Status Reason Start Date Expiration Date Visits Requested Visits Authorized [id number] Pending Review Perform Procedure 11/13/2024 05/15/2026 1 1 Reason for Visit * Reason Comments Post-op Encounter Details Date Type Department Care Team (Late st Contact Info) Description 11/13/2024 9:10 AM EDT [facility] [address], 1st [place] [address] Jay Cadena MD [address] [address] Hiatal hernia with gastroesophageal reflux [...] any time in the past 12 m [facility], were you homeless or living in a long-term (including now)? No 10/21/2024 Utilities Answer Date [...] antacid medications (proton pump inhibitors, H2 blockers, ozwg-rlg-qgsihwf preparations)? N Please select the type of [...] disease with esophagitis without hemorrhage Relevant Orders [place] Upper [facility] [id number], 54 y.o., s/p laparoscopic Toupet fundoplication with [...] saw and evaluated the patient with the medical/YEAST TENDER/PA student. I discussed the case with the medical/YEAST TENDER/PA student and agree with the findings and plan as documented. I personally performed the Examand Medical Decision Making. documented in this encounter Plan of Treatment Upcoming Encounters Date Type Department Care Team (Late st Contact Info) Description 12/31/2024 1:15 PM EDT Office Visit [facility] Medicine Specialties [address], [address]nd [place] [address] Alida Roberts, JEFF, DNP [address] [place] [address] 02/12/2025 9:30 AM EDT Appointment [facility] Rad[facility] [address] [place] [address] 02/12/2025 1:40 PM EDT Office Visit [facility] General Surgery [address], 1[address] [place] [address] Jay Cadena MD [facility] [address] 04/09/2025 1:00 PM EST Ovarian Cancer Screening [facility] Gynecology [address] [facility], 3rd [place] [address] Scheduled Orders Name Type Priority Associated Diagnoses [...] documented as of this encounter Care Teams Housekeeping Room Attendant Relationship Specialty Start Date End Date Jeferson Simental MD [address] [place] [address] PCP - General Family Medicine 09/16/24 documented as of this encounter
--- OUTSIDE RECORDS SUMMARY | 2024-11-28 13:30 | XMS_ITS | Encounter Summary ---
[facility] [address] [place] [address] Care Team Providers Care Local Coordinator Name Role Phone Jeferson Simental MD Primary Care Provider [phone] Reason for Referral * Diagnostic Imaging (Routine) - Authorized Specialty Diagnoses / Procedures Referred By Contac t Referred To Contact Radiology Diagnoses Encounter for breast cancer screening using non-mammogram modality Procedures Mammo Screening Digital Tomosynthesis Bilateral With CAD Marbella Mendoza MD [address] [address] Phone: tel: fax: [facility] [address] [place] [address] Phone: tel: Referral ID Status Reason Start Date Expiration Date V isits Requested Visits Authorized [id number] Authorized 11/28/2024 02/27/2026 1 1 Reason for Visit * Reason Comments Gynecologic Exam Encounter Details Date Type Department Care Team (Late st Contact Info) Description 11/28/2024 1:30 PM EDT Office Visit [facility] OBGYN [address] [address] Marbella Mendoza MD [address] [facility] [address] [place] [address] Hormone replacement therapy (HRT) (Primary Dx); Women's [...] were not included. 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 Denies discharge or odor. 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 Yes. Details: 0.05mg Vivelle-Dot [...] CAD 04/14/2021 Done - nl per pt. [facility] 04/19/2016 Mammo Screening Digital Tomosynthesis Bilateral With CAD Only the first 5 history entries have been loaded, but more history exists. Last colonoscopy: Colonoscopy in 2023 at [facility], recommend follow up in 5 years. No [...] , Rfl: Cholecalciferol (Vitamin D3) 1.25 MG (61890 UT) capsule, Vitamin D3 Daily, Disp: , [...] nursing note reviewed. Exam conducted with a center maker hand present. Constitutional: Appearance: She is well-developed. 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 Recommended use of [...] Description 02/18/2025 1:30 PM EDT Office Visit [facility] RHEUMATOLOGY [address] [facility] [address] [place] [address] Primo Flores MD [address] [facility] [address] [place] [address] 05/14/2025 11:30 AM EST Appointment [facility] [address] [place] [phone] 12/04/2025 1:30 PM EDT Office Visit [facility] OBGYN [address] [facility] [address] [place] [phone] Marbella Mendoza MD [address] [facility] [address] [place] [address] Scheduled Orders Name Type Priority Associated Diagnoses [...] 11/28/2024 11/28/2024 Comment:Swab Release to vijay Clayton [facility] - 12/02/2024 6:08 AM EDT Test(s) 378394- Atopobium vaginae; 775684- BVAB 2; 763281- Megasphaera 1 was developed and its performance characteristics determined by [facility]. It has not been cleared or approved by the Food and Drug Administration. Test(s) 570786-Grxvtpe albicans, CHRISTOPHER; 005358-Crzqeci glabrata, CHRISTOPHER; 936290-H parapsilosis/tropicalis; 164836-Jvwkfwi lusitaniae, CHRISTOPHER; 552873-Zpdnezv krusei, CHRISTOPHER was developed and its performance characteristics determined by [facility]. It has not been cleared or approved by the Food and Drug Administration. Performed at: [address] [id number] Can Filling Room Sweeper: Lolita Braga MD, Phone: [phone] Marbella Mendoza MD MICROBIOLOGY - GENERAL ORDERABL ES Final Result [facility] [address] [place] [address], [place] [phone] [facility] [address] [place] [address], [place] [phone] documented in this encounter Visit Diagnoses Diagnosis Hormone replacement therapy (HRT)- Primary Women's annual routine gynecological examination Encounter for breast cancer screening using non-mammogram modality Vaginal irritation Pruritus of genital organs Hormone replacement therapy Postmenopausal status Asymptomatic postmenopausal status (age-related) (natural) documented in this encounter Care Teams Local Coordinator Relationship Specialty Start Date End Date Jeferson Simental MD [address] [place] [address] PCP - General Internal Medicine 09/19/24 documented as of this encounter
--- OUTSIDE RECORDS SUMMARY | 2024-12-23 09:53 | XMS_ITS | Encounter Summary ---
Author Organization [email or web address] ([place], [place], [place], [place]) Address [address] [place] [address] Care Team Providers Care Tile Finisher Name Role Phone Emmanuel Hicks MD Primary Care Provider [phone] Reason for Referral * CAT Scan (Routine) - Closed Specialty Diagnoses / Procedures Referred By Contac t Referred To Contact Radiology Diagnoses Other specified disorders of kidney and ureter Procedures CT ABDOMEN/PELVIS WITH & WITHOUT IV CONTRAST Camille Tim PA [address] [address] Phone: tel: fax: [facility] CT Imaging [address] [place] [address] Phone: tel: fax: Referral ID Status Reason Start Date Expiration Date Visits Re quested Visits Authorized [id number] Closed 08/01/2024 08/30/2024 1 1 Encounter Details Date Type Department Care Team (Late st Contact Info) Description 08/07/2024 Outside Orders [facility] Central Scheduling 1 [place] [address] Camille Tim PA [address] [place] [address] [place] [address] Other specified disorders of kidney and ureter [...] Date Jesus rded Speak language other than Frisian at home Not on file 09/17/2023 Want [...] ureter documented in this encounter Care Teams Tile Finisher Relationship Specialty Start Date End Date Emmanuel Hicks MD [address] [place] [address] [place] [address] PCP - General General Internal Medicine 09/17/23 documented as of this encounter
--- OUTSIDE RECORDS SUMMARY | 2024-12-23 09:53 | XMS_ITS | Encounter Summary ---
Author Organization Healthcare Address [address] [place] [address] Care Team Providers Care Leadite Man Name Role Phone Emmanuel Hicks MD Primary Care Provider [phone] Jeferson Simental MD Primary Care Provider [phone] Encounter Details Date Type Department Care Team (Late Contact Info) Description 08/09/2024 Orders Only External Location [address] [place] [address] Provider, External Social History Tobacco [...] 12/31/2024 1:15 PM EDT Office Visit [facility] Medicine Specialties [address], [address] [place] [address] Alida Roberts, JEFF, DNP [address] [place] [address] 02/12/2025 9:30 AM EDT Appointment [facility] Radiology [address] [place] [address] 02/12/2025 1:40 PM EDT Office Visit [facility] General Surgery [address], [address]st [place] [address] Jay Cadena MD [address] [facility] 2nd [place] [address] 04/09/2025 1:00 PM EST Ovarian Cancer Screening [facility] [address], 3rd [place] [address] documented as of this encounter Procedures Procedure [...] documented as of this encounter Care Teams Leadite Man Relationship Specialty Start Date End Date Emmanuel Hicks MD [address] [place] [address] PCP - General 09/25/20 09/15/24 Jeferson Simental MD [address] [place] [address] PCP - General Family Medicine 09/16/24 documented as of this encounter
--- OUTSIDE RECORDS SUMMARY | 2024-12-23 09:53 | XMS_ITS | Encounter Summary ---
Author Organization Healthcare Address [address] [place] [address] Care Team Providers Care Jumpbasting Machine Operator Name Role Phone Jeferson Simental MD Primary Care Provider Encounter Details Date Type Department Care Team (Late st Contact Info) Description 11/18/2024 Telephone [facility] General Surgery [address], [address]st [place] [address] Mickie Bach RN [facility] Social History Tobacco Use [...] any time in the past 12 m [facility], were you homeless or living in a senior living (including now)? No 10/21/2024 Utilities Answer Date [...] Description 12/31/2024 1:15 PM EDT Office Visit [facility] Medicine Specialties [address], [address] [place] [address] Alida Roberts APRN, DNP [address] [place] [address] 02/12/2025 9:30 AM EDT Appointment [facility] [address] [place] [address] 02/12/2025 1:40 PM EDT Office Visit [facility] General Surgery [address], [address] [place] [address] Jay Cadena MD [address] [address] 04/09/2025 1:00 PM EST Ovarian Cancer Screening [facility] Gynecology [address] [facility], 3rd [place] [address] documented as of this encounter Visit Diagnoses [...] documented as of this encounter Care Teams Jumpbasting Machine Operator Relationship Specialty Start Date End Date Jeferson Simental MD [address] [place] [address] PCP - General Family Medicine 09/16/24 documented as of this encounter
--- OUTSIDE RECORDS SUMMARY | 2024-12-23 09:53 | XMS_ITS | Encounter Summary ---
Author Organization Healthcare Address [address] [place] [address] Care Team Providers Care Client Development Consultant Name Role Phone Jeferson Simental MD Primary Care Provider [phone] Encounter Details Date Type Department Care Team (Late st Contact Info) Description 12/05/2024 Telephone [facility] General Surgery [address], [address] [place] [address] Mickie Bach RN [facility] Social History Tobacco Use [...] any time in the past 12 m [facility], were you homeless or living in [...] Description 12/31/2024 1:15 PM EDT Office Visit [facility] Medicine Specialties [address], [address] [place] [address] Alida Roberts APRN, DNP [address] [place] [address] 02/12/2025 9:30 AM EDT Appointment [facility] Radiology [address] [place] [address] 02/12/2025 1:40 PM EDT Office Visit [facility] General Surgery [address], [address] [place] [address] Jay Cadena MD [address] [address] 04/09/2025 1:00 PM EST Ovarian Cancer Screening [facility] [address]rd [place] [address] documented as of this encounter Visit Diagnoses [...] documented as of this encounter Care Teams Client Development Consultant Relationship Specialty Start Date End Date Jeferson Simental MD [address] [place] [address] PCP - General Family Medicine 09/16/24 documented as of this encounter
--- OUTSIDE RECORDS SUMMARY | 2024-12-23 09:53 | XMS_ITS | Encounter Summary ---
Author Organization [employer] ([place], [place], [place], [place]) Address [address] [place] [address] Care Team Providers Care Pattern Setter Name Role Phone Emmanuel Hicks MD Primary Care Provider [phone] Reason for Referral * CAT Scan (Routine) - Closed Specialty Diagnoses / Procedures Referred By Contac t Referred To Contact Radiology Diagnoses Chronic sinusitis, unspecified location Procedures CT sinus without iv contrast Pritesh Jacobsen MD [address] [address] Phone: tel: fax: Referral ID Status Reason Start Date Expiration Date Visits Re quested Visits Authorized [id number] Closed 12/26/2023 01/24/2024 1 1 Encounter Details Date Type Department Care Team (Late st Contact Info) Description 12/26/2023 Outside Orders [facility] Central Scheduling [address] [place] [address] Pritesh Jacobsen MD [facility] [place] [address] Chronic sinusitis, unspecified location (Primary Dx) Social [...] Date Jesus rded Speak language other than Luxembourgish at home Not on file 09/17/2023 Want [...] Images reviewed, interpreted, and dictated by Dr. Etelivna Beavers. Transcribed by Dexter Moore PA-C. Pritesh Jacobsen MD IMG CT ORDERABLES Final Resul t documented in this encounter Visit Diagnoses Diagnosis Chronic sinusitis, unspecified location- Primary Chronic sinusitis, unspecified location documented in this encounter Care Teams Pattern Setter Relationship Specialty Start Date End Date Emmanuel Hicks MD [address] [place] [address] [place] [address] PCP - General General Internal Medicine 09/17/23 documented as of this encounter
--- OUTSIDE RECORDS SUMMARY | 2024-12-23 09:53 | XMS_ITS | Referral Summary ---
Author Organization [employer] ([place], [place], [place], [place]) Address [address] [place] [address] Care Team Providers Care Utility Worker Woolen Mill Name Role Phone Emmanuel Hicks MD Primary Care Provider [phone] Allergies Active Allergy Reactions Criticality Noted Date [...] Date Jesus rded Speak language other than [place] Islander at home Not on file 09/17/2023 Want [...] file Insurance BLUE CROSS/BLUE SHIELD Care Teams Utility Worker Woolen Mill Relationship Specialty Start Date End Date Emmanuel Hicks MD [address] [place], [place] [address] [place] [address] PCP - General General Internal Medicine 09/17/23
--- OUTSIDE RECORDS SUMMARY | 2024-12-23 09:53 | XMS_ITS | Clinical Summary ---
Author Organization [facility] Address [address] [facility] [address] [place] [address] Care Team Providers Care Yoghurt Maker Name Role Phone Emmanuel Hicks MD Primary [...] patient's age to complete this topic Insurance [facility] Care Teams Yoghurt Maker Relationship Specialty Start Date End Date Emmanuel Hicks MD [address] [place] [address] PCP - General Internal Medicine 08/14/24
--- OUTSIDE RECORDS SUMMARY | 2024-12-23 09:53 | XMS_ITS | Encounter Summary ---
Author Organization [facility] Address [address] [place] [address] Care Team Providers Care Adjunct Mathematics Instructor Name Role Phone Jeferson Simental MD Primary Care Provider [phone] Encounter Details Date Type Department Care Team [...] time in the past 12 m [facility], were you homeless or living in [...] Description 12/31/2024 1:15 PM EDT Office Visit [facility] Medicine Specialties [address] [place] [address] Alida Roberts, JEFF, DNP [address] [place] [address] 02/12/2025 9:30 AM EDT Appointment [facility] [address] [place] [address] 02/12/2025 1:40 PM EDT Office Visit [facility] General Surgery [address] [place] [address] Jay Cadena MD [address] [facility] 2nd [place] [address] 04/09/2025 1:00 PM EST Ovarian Cancer Screening [facility]ne[facility] [address]rd [place] [address] documented as of this encounter Visit Diagnoses [...] documented as of this encounter Care Teams Adjunct Mathematics Instructor Relationship Specialty [place] [address] [place] [address] PCP - General Family Medicine 09/16/24 documented as of this encounter
--- OUTSIDE RECORDS SUMMARY | 2024-12-23 09:53 | XMS_ITS | Clinical Summary ---
Author Organization [employer] ([place], [place], [place], [place]) Address [address] [place] [address] Care Team Providers Care Seasoner Name Role Phone Emmanuel Hicks MD Primary Care Provider Allergies Active Allergy Reactions Criticality Noted Date [...] Date Jesus rded Speak language other than Mexican at home Not on file 09/17/2023 Want [...] 05/19/2021 Insurance BLUE CROSS/BLUE SHIELD Care Teams Seasoner Relationship Specialty Start Date End Date Emmanuel Hicks MD [address] [place] [address] [place] [address] PCP - General General Internal Medicine 09/17/23
--- OUTSIDE RECORDS SUMMARY | 2024-12-23 09:54 | XMS_ITS | Encounter Summary ---
Author Organization [facility] Address [address] [place] [id number] Care Team Providers Care Trimmer Helper Name Role Phone Jeferson Simental MD Primary Care Provider [phone] Reason for Visit * Reason Comments Med Refill Encounter Details Date Type Department Care Team (Late Contact Info) Description 11/27/2024 Refill [facility] OBGYN [address] [address] Marbella Mendoza MD [address] [facility] [address] [place] [address] Hormone replacement therapy (HRT) Social History Tobacco [...] Description 02/18/2025 1:30 PM EDT Office Visit [facility] RHEUMATOLOGY [address] [place] [address] Primo Flores MD [address] [facility] 100 [place] [address] 05/14/2025 11:30 AM EST Appointment [facility] [address] [place] [address] 12/04/2025 1:30 PM EDT Office Visit [facility] OBGYN [address] [facility] [address] [place] [address] Marbella Mendoza MD [address] [facility] [address] [place] [address] documented as of this encounter Visit Diagnoses Diagnosis Hormone replacement therapy (HRT) documented in this encounter Care Teams Trimmer Helper Relationship Specialty Start Date End Date Jeferson Simental MD [address] [facility] [address] [place] [address] PCP - General Internal Medicine 09/19/24 documented as of this encounter
--- OUTSIDE RECORDS SUMMARY | 2024-12-23 09:54 | XMS_ITS | Clinical Summary ---
Author Organization [facility] Address [address] [place] [address] Care Team Providers Care Nanotechnology Engineering Technologist Name Role Phone Emmanuel Hicks MD Primary Care Provider [phone] Social History Tobacco Use Types Packs/Day Years [...] patient's age to complete this topic Insurance [facility] Care Teams Nanotechnology Engineering Technologist Relationship Specialty Start Date End Date Emmanuel Hicks MD [address] [place] [address] PCP - General Internal Medicine 04/10/20
--- OUTSIDE RECORDS SUMMARY | 2024-12-23 09:54 | XMS_ITS | Encounter Summary ---
[facility] Address [address] [place] [address] Care Team Providers Care Wedding Consultant Name Role Phone Jeferson Simental MD Primary Care Provider [phone] Encounter Details Date Type Department Care Team [...] Description 02/18/2025 1:30 PM EDT Office Visit [facility] RHEUMATOLOGY [address] [address] Primo Flores MD [address] [address] 05/14/2025 11:30 AM EST Appointment [facility] [address] [place] [address] 12/04/2025 1:30 PM EDT Office Visit [facility] OBGYN [address] [facility] [address] [place] [address] Marbella Mendoza MD [address] [facility] [address] [place] [address] documented as of this encounter Visit Diagnoses Not on filedocumented in this encounter Care Teams Wedding Consultant Relationship Specialty Start Date End Date Jeferson Simental MD [address] [facility] [address] [place] [address] PCP - General Internal Medicine 09/19/24 documented as of this encounter
--- OUTSIDE RECORDS SUMMARY | 2024-12-23 09:54 | XMS_ITS | Clinical Summary ---
Author Organization [facility] Address [address] [place] [address] Care Team Providers Care Online Media Director Name Role Phone Jeferson Simental MD Primary Care Provider [phone] Allergies Active Allergy Reactions Criticality Noted Date Comments Sulfa Antibiotics Hives 07/14/2014 Medications Cholecalciferol (Vitamin D3) 1.25 MG (38681 UT) capsule Vitamin D3 Daily Active acetaminophen [...] She is scheduled for further evaluation at [facility] including manometry. Assessment & Plan (07/04/2024 12:43 PM EST): EGD showed esophagitis and esophageal narrowing. She had dilation but continues having severe GI symptoms. She is scheduled for further evaluation at [facility] including manometry. Chronic fatigue 07/04/2024 Assessment & [...] Description 11/28/2024 1:30 PM EDT Office Visit [facility] OBGYN [address] [facility] [address] [place] [address] Trinity Mendoza MD Hormone replacement therapy (HRT) (Primary Dx); Women's annual routine gynecological examination; Encounter for breast cancer screening using non-mammogram modality; Vaginal irritation; Hormone replacement therapy; Postmenopausal status 11/28/2024 Travel 11/27/2024 Refill [facility] [address] [facility] [address] [place] [address] Trinity Mendoza MD Hormone replacement therapy (HRT) 10/31/2024 Refill [facility] O[facility] [address] [facility] [address] [place] [address] Trinity Mendoza MD Hormone replacement therapy (HRT) 10/10/2024 Telephone [facility] [address] [facility] [address] [place] [address] Ga Stark APRN STARK- PRESCRIPTION ISSUE 10/10/2024 Telephone [facility] [address] [facility] [address] [place] [address] Trinity Mendoza MD MENDOZA-PROJESTERONE RX? from Last 3 Months Family History Medical History Relation Name Comments Hypertension Father Clay Lymphoma Father Clay Hypertension Maternal Grandfather Willim Endometrial cancer Mother Caryn Hypertension Mother Caryn [...] Description 02/18/2025 1:30 PM EDT Office Visit [facility] RHEUMATOLOGY [address] [address] Primo Flores MD [address] [address] 05/14/2025 11:30 AM EST Appointment [facility] [address] [place] [phone] 12/04/2025 1:30 PM EDT Office Visit [facility] OBGYN [address] [address] Trinity Mendoza MD [address] [address] Health Maintenance Due Date Last Done Comments [...] EDT Vaginal irritation SCANNED - LABS 11/21/2024 HEPATITIS PANEL, ACUTE Routine 07/04/2024 11:48 AM [...] Indicates the presence of BV. Cindi Albicans, CHRITSOPHER Negative Negative [facility] Cindi Glabrata, CHRISTOPHER Negative Negative [facility] C PARAPSILOSIS/TROP ICALIS Negative Negative [facility] Comment:This assay does not differentiate C. tropicalis and C. parapsilosis. Cindi lusitaniae, CHRISTOPHER Negative Negative [facility] Icndi krusei, CHRISTOPHER Negative Negative [facility] Trichomonas vaginosis Negative Negative [facility] Swab Vaginal structure / Unknown 11/28/2024 11/28/2024 Comment:Swab Release to vijay Clayton [facility] ([facility]) - 12/02/2024 6:08 AM EDT Test(s) 092007- Atopobium vaginae; 401187- BVAB 2; 240728- Megasphaera 1 was developed and its performance characteristics determined by [facility]. It has not been cleared or approved by the Food and Drug Administration. Test(s) 677665-Rnrpcya albicans, CHRISTOPHER; 243740-Cgicjxw glabrata, CHRISTOPHER; 638706-P parapsilosis/tropicalis; 813959-Odvymyq lusitaniae, CHRISTOPHER; 824226-Bxmyoae krusei, CHRISTOPHER was developed and its performance characteristics determined by [facility]. It has not been cleared or approved by the Food and Drug Administration. Performed at: 01 - [address] [id number] Programs Director: Lolita Braga MD, Phone: [phone] Trinity Mendoza MD MICROBIOLOGY - GENERAL ORDERABL ES Final Result [facility] [address] [place] [address], [facility] [address] [place] [address], * LABS SCANNED (11/21/2024) [facility] LAB BLOOD ORDERABLES Final Re sult * Hepatitis Panel, Acute (07/04/2024 11:48 AM EST) Hepatitis B Surface Ag Non-Reacti ve Non-Reacti ve 07/04/2024 11:24 PM EST [facility] Hep A IgM Non-Reacti ve Non-Reacti ve 07/04/2024 11:24 PM EST [facility] Hep B C IgM Non-Reacti ve Non-Reacti ve 07/04/2024 11:24 PM EST [facility] Hepatitis C Ab Non-Reacti ve Non-Reacti ve 07/04/2024 11:24 PM EST [facility] Blood Venipuncture / Unknown 07/04/2024 11:48 AM EST 07/04/2024 11:48 AM EST Narrative [facility] - 07/04/2024 11:24 PM EST Results may be falsely decreased if patient taking Biotin. Primo Flores MD LAB BLOOD ORDERABLES Final Res ult [facility]
[address] [place] [address], * Mammo Screening Digital Tomosynthesis Bilateral With [...] OF INTERPRETATION (RACHEL,COR,MAD) (11/23/2023 4:26 PM EDT) Pathologist [facility] Reference Lab Report [facility] [address] [place] [address] or [phone] Eddie Benoit M.D., Brine Maker PATIENT NAME LABORATORY NO. [id number] LOIS DOOLEY [id number] AGE SEX SSN CLIENT REF # [id number] [id number] F [id number] [id number] REQUESTING M.D. [place] [address] TRINITY MENDOZA DATE COLLECTED DATE RECEIVED DATE [...] 51, 52, 56, 58, 59, 66, 67 INDUSTRIAL REFRIGERATION MECHANIC: FERNANDA SERVIN (ASCP) CPT CODES: 38755, 19103 11/28/2023 10:36 AM EDT [facility] ThinPrep Vial Cervix uteri structure / Unknown Collection / Unknown 11/23/2023 4:26 PM EDT 11/23/2023 4:26 PM EDT us Trinity Mendoza MD PATHOLOGY/CYTOLOGY ORDERABLES F inal Result [facility]
[address] [place] [address], * SCANNED - PAP SMEAR (09/22/2020) us Trinity Mendoza MD CHART REVIEW TABS Final Resu lt from Last 3 Months or Most Recently Relevant to Health Maintenance Insurance Care Teams Online Media Director Relationship Specialty Start Date End Date Jeferson Simental MD [address] [place] [address] PCP - General Internal Medicine 09/19/24
--- OUTSIDE RECORDS SUMMARY | 2024-12-23 09:54 | XMS_ITS | Clinical Summary ---
Author Organization Healthcare Address [address] [place] [address] Care Team Providers Care Firefighter Marine Name Role Phone Jeferson Simental MD Primary Care Provider [phone] Allergies Active Allergy Reactions Criticality Noted Date [...] esophagitis without hemorrhage 08/14/2024 Tachycardia 08/14/2024 Encounters Date Type Department Care Team Description 12/05/2024 Telephone [facility] General Surgery [address], [address] [place] [address] Mickie Bach RN 11/18/2024 Telephone [facility] General Surgery [address], [address] [place] [address] Mickie Bach RN 11/13/2024 9:10 AM EDT Office Visit [facility] General Surgery [address], [address] [place] [address] Jay Cadena MD Hiatal hernia with gastroesophageal reflux (Primary Dx); Gastroesophageal reflux disease with esophagitis without hemorrhage 11/13/2024 Travel 10/21/2024 Travel 10/20/2024 12:49 PM EDT - 10/23/2024 10:49 AM EDT Hospital Encounter [facility]patient [address] [place] [address] Toyin Levy MD Roth, John S, MD Dysphagia, unspecified type (Primary Dx); Chest pain, unspecified type Discharge Disposition: Home or Self Care 10/20/2024 Travel 10/08/2024 9:40 AM EDT - 10/08/2024 12:40 PM EDT Surgery [facility] Operating Room [address] [place] [phone] Jay Cadena MD REPAIR, HERNIA, HIATAL, LAPAROSCOPIC, USING MESH, TOUPET FUNDOPLICATION [[id number] (CPT )] 10/08/2024 9:39 AM EDT Anesthesia Event [facility] Operating Room [address] [place] [address] Marco A Jacobson, Lakeshia Del Castillo, HYDROCHLORIC AREA SUPERVISOR, DNP 10/08/2024 7:09 AM EDT - 10/09/2024 7:41 PM EDT Hospital Encounter [facility] Inpatient [address] [place] [phone] Jay Cadena MD Hiatal hernia with gastroesophageal reflux (Primary Dx) Discharge Disposition: Home or Self Care 10/08/2024 Travel 10/04/2024 Travel 10/01/2024 Travel from Last 3 Months Immunizations Immunization [...] any time in the past 12 m [facility], were you homeless or living in a alf (including now)? No 10/21/2024 Utilities Answer Date Recorded In the past 12 months has [facility] electric, gas, oil, or water company threatened [...] Description 12/31/2024 1:15 PM EDT Office Visit [facility] Medicine Specialties [address], [address] [place] [address] Alida Roberts, ACCESS CONTROL SPECIALIST, DNP [address] [place] [address] 02/12/2025 9:30 AM EDT Appointment [facility] Radiology [address] [place] [address] 02/12/2025 1:40 PM EDT Office Visit [facility] General Surgery [address], 1st [place] [phone] Jay Cadena MD [address]nd [place] [address] 04/09/2025 1:00 PM EST Ovarian Cancer Screening [facility] Gynecology [address], 3rd [place] [address] Health Maintenance Due Date Last Done Comments [facility]-HIV Screening 1970 [facility]-Hepatitis C Screening 1970 [facility]-Infant/Child/Adol SDOH Screenings 1970 [facility]-Hepatitis B Vaccines (1 of 3 - 19+ 3-dose series) 1988 [facility]-HPV/Cotest 10/16/1999 CT Colonography 2014 Colonoscopy 2014 FIT-DNA 2014 FIT 2014 FOBT 2014 Sigmoidoscopy 2014 [facility]-Colorectal Cancer Screening 2014 [facility]-Pneumococcal Vaccine: 50+ Years (1 of 1 - PCV) 10/16/2019 [id number] Vaccine ( season) 2024 02/01/2022, 02/01/2022, 04/28/2021, Additional history exists [facility]-Influenza Vaccine (#1) 01/13/202502/07, 02/02/2023, 02/01/2022, Additional history exists [facility]- SDOH Screenings 04/22/2025 [facility]-Adult SDOH Screenings 04/22/2025 10/21/2024 [facility]-Depression Screening 09/16/2025 09/16/2024, 05/0 09/2024 [facility]-Breast Cancer Screening 05/13/202604/16, 05/13/2024, 05/12/2023, [...] ANESTHESIA PLACEHOLDER Routine 10/08/2024 9:46 AM EDT NC AN ELECTIVE ENDOTRACHEAL AIRWAY Routine 10/08/2024 9:46 AM EDT NC LAP, REPAIR PARAESOPHAGEAL HERNIA, INCL FUNDOPLASTY W/ [...] - 99 mg/dL 10/22/2024 3:09 PM EDT [facility] BUN, Plasma 13 7 - 21 mg/dL 10/22/2024 3:09 PM EDT [facility] Creatinine, Plasma 0.64 0.60 - 1.10 mg/dL 10/22/2024 3:09 PM EDT [facility] BUN/Creatinine Ratio 20 10/22/2024 3:09 PM EDT [facility] Sodium, Plasma 131(L) 136 - 145 mmol/L 10/22/2024 3:09 PM EDT [facility] Potassium, Plasma 3.8 3.6 - 4.9 mmol/L 10/22/2024 3:09 PM EDT [facility] Chloride, Plasma 97 97 - 107 mmol/L 10/22/2024 3:09 PM EDT [facility] CO2, Plasma 22 22 - 29 mmol/L 10/22/2024 3:09 PM EDT [facility] Anion Gap 12 6 - 16 mmol/L 10/22/2024 3:09 PM EDT [facility] Total Calcium, Plasma 9.4 8.9 - 10.2 mg/dL 10/22/2024 3:09 PM EDT [facility] eGFRcr 104.5 mL/min/1.7 3m*2 10/22/2024 3:09 PM EDT [facility] Comment:Reported eGFRcr in m L/min/1.73m2 is based the CKD-EPI 2020 equation that does not use a race coefficient. Blood Venous blood specimen / Unknown Venipuncture / Unknown 10/22/2024 2:09 PM EDT 10/22/2024 2:32 PM EDT us Jay Cadena MD LAB BLOOD ORDERABLES Final Resul t [facility] [address] [place] [address] * [place] Upper GI (10/21/2024 10:36 AM [...] culture not indicated 10/20/2024 11:01 PM EDT [facility] Comment: Previously prelim verified as Specimen [...] DAS LAB URINE ORDERABLES Final Resul t [facility] [address] [place] [address] * (ABNORMAL) Urinalysis with reflex microscopic (Culture NOT Included) (10/20/2024 2:23 PM EDT) Color, Urine Yellow LAB URINALYSIS - AUTOMATED METHOD 10/20/2024 2:29 PM EDT [facility] Clarity, Urine Clear LAB URINALYSIS - AUTOMATED METHOD 10/20/2024 2:29 PM EDT [facility] Spec [place], Urine 1.007 1.005 - 1.030 LAB URINALYSIS - AUTOMATED METHOD 10/20/2024 2:29 PM EDT [facility] pH, Urine 7.0 5.0 - 8.0 LAB URINALYSIS - AUTOMATED METHOD 10/20/2024 2:29 PM EDT [facility] Protein, Urine Negative Negative mg/dL LAB URINALYSIS - AUTOMATED METHOD 10/20/2024 2:29 PM EDT [facility] Glucose, Urine Negative Negative mg/dL LAB URINALYSIS - AUTOMATED METHOD 10/20/2024 2:29 PM EDT [facility] Ketones, Urine Trace(A) Negative mg/dL LAB URINALYSIS - AUTOMATED METHOD 10/20/2024 2:29 PM EDT [facility] Blood, Urine Negative Negative LAB URINALYSIS - AUTOMATED METHOD 10/20/2024 2:29 PM EDT [facility] Bilirubin, Urine Negative Negative LAB URINALYSIS - AUTOMATED METHOD 10/20/2024 2:29 PM EDT [facility] Urobilinogen, Urine 0.2 0.2 to 1.0 mg/dL LAB URINALYSIS - AUTOMATED METHOD 10/20/2024 2:29 PM EDT [facility] Leukocytes, Urine Negative Negative LAB URINALYSIS - AUTOMATED METHOD 10/20/2024 2:29 PM EDT [facility] Nitrite, Urine Negative Negative LAB URINALYSIS - AUTOMATED METHOD 10/20/2024 2:29 PM EDT [facility] Urine Urine specimen obtained by clean catch procedure / Unknown Non-blood Collection / Unknown 10/20/2024 2:23 PM EDT 10/20/2024 2:26 PM EDT Ziyad DAS LAB URINE ORDERABLES Final Resul t [facility] [address] [place] [address] * CT Abdomen Pelvis w IV Contrast [...] Becca Javier MD on 10/20/2024 2:49 PM us Ziyad DAS IM CT PROCEDURES Final Result * XR Chest [...] and 120 min (10/20/2024 1:19 PM EDT) Pathologist [facility] Troponin T, High Sensitivity, 0 Hour <6 <14 ng/L 10/20/2024 1:43 PM EDT [facility] Blood Venous blood specimen / Unknown Venipuncture / Unknown 10/20/2024 1:19 PM EDT 10/20/2024 1:21 PM EDT us Ziyad DAS LAB BLOOD ORDERABLES Final Resul t Performing Organization Address City/[facility]/ZIP Co de Phone Number [facility] [address] [place] [address] * Lactic acid, venous (10/20/2024 1:19 PM EDT) [facility] Lactate, Venous, Whole Blood 0.7 0.5 - 2.2 mmol/L LAB HEMATOLOGY METHOD 10/20/2024 1:24 PM EDT [facility] Blood Venous blood specimen / Unknown Venipuncture / Unknown 10/20/2024 1:19 PM EDT 10/20/2024 1:22 PM EDT us Ziyad DAS LAB BLOOD ORDERABLES Final Resul t Performing Organization Address City/[facility]/ZIP Co de Phone Number [facility] [address] [place] [address] * PT-INR (10/20/2024 1:19 PM EDT) [facility] Prothrombin Time 14.0 12.0 - 14.3 sec 10/20/2024 1:33 PM EDT [facility] INR 1.1 0.9 - 1.1 10/20/2024 1:33 PM EDT [facility] Blood Venous blood [...] INR 2.5 to 3.5 Prevention of recurrent [place] INR 2.5 to 3.5 Ziyad DAS LAB BLOOD ORDERABLES Final Resul t [facility] [address] [place] [id number] * (ABNORMAL) CBC w/diff (10/20/2024 1:19 PM EDT) [facility] Signature WBC Count 7.20 3.70 - 10.30 10*3/uL LAB HEMATOLOGY METHOD 10/20/2024 1:24 PM EDT [facility] RBC Count 4.52 3.90 - 5.20 10*6/uL LAB HEMATOLOGY METHOD 10/20/2024 1:24 PM EDT [facility] HGB 12.6 11.2 - 15.7 g/dL LAB HEMATOLOGY METHOD 10/20/2024 1:24 PM EDT [facility] HCT 39.1 34.0 - 45.0 % LAB HEMATOLOGY METHOD 10/20/2024 1:24 PM EDT [facility] Platelet Count 390(H) 155 - 369 10*3/uL LAB HEMATOLOGY METHOD 10/20/2024 1:24 PM EDT [facility] MCV 87 79 - 98 fL LAB HEMATOLOGY METHOD 10/20/2024 1:24 PM EDT [facility] MCH 27.9 26.0 - 32.0 pg LAB HEMATOLOGY METHOD 10/20/2024 1:24 PM EDT [facility] MCHC 32.2 30.7 - 35.5 g/dL LAB HEMATOLOGY METHOD 10/20/2024 1:24 PM EDT [facility] RDW 12.7 11.5 - 14.5 % LAB HEMATOLOGY METHOD 10/20/2024 1:24 PM EDT [facility] MPV 9.9 8.8 - 12.5 fL LAB HEMATOLOGY METHOD 10/20/2024 1:24 PM EDT [facility] nRBC 0.0 <=0.0 per 100 WBCs LAB HEMATOLOGY METHOD 10/20/2024 1:24 PM EDT [facility] Differential Type Automated LAB HEMATOLOGY METHOD 10/20/2024 1:24 PM EDT [facility] Neutrophils % 83 % LAB HEMATOLOGY METHOD 10/20/2024 1:24 PM EDT [facility] Lymphocytes % 10 % LAB HEMATOLOGY METHOD 10/20/2024 1:24 PM EDT [facility] Monocytes % 5 % LAB HEMATOLOGY METHOD 10/20/2024 1:24 PM EDT [facility] Eosinophils % 1 % LAB HEMATOLOGY METHOD 10/20/2024 1:24 PM EDT [facility] Basophils % 1 % LAB HEMATOLOGY METHOD 10/20/2024 1:24 PM EDT [facility] Immature Granulocytes % 0 % LAB HEMATOLOGY METHOD 10/20/2024 1:24 PM EDT [facility] Neutrophils Absolute 5.98 1.60 - 6.10 10*3/uL LAB HEMATOLOGY METHOD 10/20/2024 1:24 PM EDT [facility] Lymphocytes Absolute 0.70(L) 1.20 - 3.90 10*3/uL LAB HEMATOLOGY METHOD 10/20/2024 1:24 PM EDT [facility] Monocytes Absolute 0.36 0.30 - 0.90 10*3/uL LAB HEMATOLOGY METHOD 10/20/2024 1:24 PM EDT [facility] Eosinophils Absolute 0.10 0.00 - 0.50 10*3/uL LAB HEMATOLOGY METHOD 10/20/2024 1:24 PM EDT [facility] Basophils Absolute 0.04 0.00 - 0.10 10*3/uL LAB HEMATOLOGY METHOD 10/20/2024 1:24 PM EDT [facility] Immature Granulocytes Absolute 0.02 0.00 - 0.06 10*3/uL LAB HEMATOLOGY METHOD 10/20/2024 1:24 PM EDT [facility] Blood Venous blood specimen / Unknown Venipuncture / Unknown 10/20/2024 1:19 PM EDT 10/20/2024 1:21 PM EDT Narrative [facility] - 10/20/2024 1:24 PM EDT Therapeutic decision making should be based on absolute values, rather than percentages. us Ziyad DAS LAB BLOOD ORDERABLES Final Resul t [facility] [address] [place] [address] * Phosphorus (10/20/2024 1:19 PM EDT) Phosphorus, Plasma 3.6 2.5 - 4.5 mg/dL 10/20/2024 1:43 PM EDT [facility] Blood Venous blood specimen / Unknown Venipuncture / Unknown 10/20/2024 1:19 PM EDT 10/20/2024 1:21 PM EDT [employer] PA LAB BLOOD ORDERABLES Final Resul t Performing Organization Address City/[facility] Co de Phone Number [facility] [address] [place] [address] * Magnesium (10/20/2024 1:19 PM EDT) Magnesium, Plasma 1.9 1.9 - 2.4 mg/dL 10/20/2024 1:43 PM EDT [facility] Blood Venous blood specimen / Unknown Venipuncture / Unknown 10/20/2024 1:19 PM EDT 10/20/2024 1:21 PM EDT [employer] LAB BLOOD ORDERABLES Final Resul t Performing Organization Address [facility] de Phone Number [facility] [address] [place] [address] * Lipase (10/20/2024 1:19 PM EDT) Lipase, Plasma 61 19 - 63 U/L 10/20/2024 1:43 PM EDT [facility] Blood Venous blood specimen / Unknown Venipuncture / Unknown 10/20/2024 1:19 PM EDT 10/20/2024 1:21 PM EDT [employer] LAB BLOOD ORDERABLES Final Resul t Performing Organization Address [facility] Co de Phone Number [facility] [address] [place] [address] * (ABNORMAL) CMP (10/20/2024 1:19 PM EDT) Glucose, Plasma 108(H) 74 - 99 mg/dL 10/20/2024 1:43 PM EDT [facility] BUN, Plasma 8 7 - 21 mg/dL 10/20/2024 1:43 PM EDT [facility] Creatinine, Plasma 0.71 0.60 - 1.10 mg/dL 10/20/2024 1:43 PM EDT [facility] BUN/Creatinine Ratio 11 10/20/2024 1:43 PM EDT [facility] Sodium, Plasma 135(L) 136 - 145 mmol/L 10/20/2024 1:43 PM EDT [facility] Potassium, Plasma 3.9 3.6 - 4.9 mmol/L 10/20/2024 1:43 PM EDT [facility] Chloride, Plasma 99 97 - 107 mmol/L 10/20/2024 1:43 PM EDT [facility] CO2, Plasma 23 22 - 29 mmol/L 10/20/2024 1:43 PM EDT [facility] Anion Gap 13 6 - 16 mmol/L 10/20/2024 1:43 PM EDT [facility] Total Calcium, Plasma 9.5 8.9 - 10.2 mg/dL 10/20/2024 1:43 PM EDT [facility] Total Protein 7.7 6.3 - 7.9 g/dL 10/20/2024 1:43 PM EDT [facility] Albumin, Plasma 4.5 3.5 - 5.2 g/dL 10/20/2024 1:43 PM T [facility] AST, Plasma 17 10 - 35 U/L 10/20/2024 1:43 PM EDT [facility] ALT, Plasma 18 10 - 35 U/L 10/20/2024 1:43 PM EDT [facility] Alkaline Phosphatase, Plasma 79 35 - 104 U/L 10/20/2024 1:43 PM EDT [facility] Total Bilirubin, Plasma 0.3 0.2 - 1.1 mg/dL 10/20/2024 1:43 PM EDT [facility] eGFRcr 100.6 mL/min/1.7 3m*2 10/20/2024 1:43 PM EDT [facility] Comment:Reported eGFRcr in m L/min/1.73m2 is based the CKD-EPI 2020 equation that does not use a race coefficient. Blood Venous blood specimen / Unknown Venipuncture / Unknown 10/20/2024 1:19 PM EDT 10/20/2024 1:21 PM EDT [facility] DAS LAB BLOOD ORDERABLES Final Resul t Performing Organization Address City/[facility]/ZIP Co de Phone Number [facility] [address] [place] [address] * (ABNORMAL) Sodium, Plasma (10/09/2024 5:09 PM EDT) Pathologist [facility] Sodium, Plasma 135(L) 136 - 145 mmol/L 10/09/2024 5:36 PM EDT [facility] Blood Venous blood specimen / Unknown Venipuncture / Unknown 10/09/2024 5:09 PM EDT 10/09/2024 5:17 PM EDT Jay Cadena MD LAB BLOOD ORDERABLES Final Resul t Performing Organization Address City/[facility] Co de Phone Number [facility] [address] [place] [address] * (ABNORMAL) CBC W/O Differential (10/09/2024 2:38 AM EDT) WBC Count 10.80(H) 3.70 - 10.30 10*3/uL LAB HEMATOLOGY METHOD 10/09/2024 3:17 AM EDT [facility] RBC Count 3.76(L) 3.90 - 5.20 10*6/uL LAB HEMATOLOGY METHOD 10/09/2024 3:17 AM EDT [facility] HGB 10.5(L) 11.2 - 15.7 g/dL LAB HEMATOLOGY METHOD 10/09/2024 3:17 AM EDT [facility] HCT 32.5(L) 34.0 - 45.0 % LAB HEMATOLOGY METHOD 10/09/2024 3:17 AM EDT [facility] Platelet Count 296 155 - 369 10*3/uL LAB HEMATOLOGY METHOD 10/09/2024 3:17 AM EDT [facility] MCV 86 79 - 98 fL LAB HEMATOLOGY METHOD 10/09/2024 3:17 AM EDT [facility] MCH 27.9 26.0 - 32.0 pg LAB HEMATOLOGY METHOD 10/09/2024 3:17 AM EDT [facility] MCHC 32.3 30.7 - 35.5 g/dL LAB HEMATOLOGY METHOD 10/09/2024 3:17 AM EDT [facility] RDW 12.4 11.5 - 14.5 % LAB HEMATOLOGY METHOD 10/09/2024 3:17 AM EDT [facility] MPV 10.9 8.8 - 12.5 fL LAB HEMATOLOGY METHOD 10/09/2024 3:17 AM EDT [facility] nRBC 0.0 <=0.0 per 100 WBCs LAB HEMATOLOGY METHOD 10/09/2024 3:17 AM EDT [facility] Blood Venous blood specimen / Unknown Venipuncture / Unknown 10/09/2024 2:38 AM EDT 10/09/2024 3:14 AM EDT Jay Cadena MD LAB BLOOD ORDERABLES Final Resul t Performing Organization Address City/State/[facility] Co de Phone Number [facility] [address] [place] [address] * NC AN ELECTIVE ENDOTRACHEAL AIRWAY, PB ANESTHESIA PLACEHOLDER (10/08/2024 9:46 AM EDT) Narrative Lakeshia Simental CRNA, DNP - 10/08/2024 9:46 AM EDT Lakeshia Simental CRNA, DNP 10/08/2024 11:12 AM Airway Date/Time: 10/08/2024 9:46 AM Reason: elective Airway not difficult General Information and Staff Patient location during procedure: OR HYDROCHLORIC AREA SUPERVISOR: Lakeshia Simental CRNA, DNP Other anesthesia staff: Dena Torres Performed: [...] Additional Comments Atraumatic. No change to dentition. us Marco A Jacobson DO ANESTHESIA ORDERABLES Edited Result - Final * POCT , URINE (10/08/2024 8:04 AM EDT) POCT Test, Urine Negative Males and Non- Females: Negative 10/08/2024 8:11 AM EDT [facility] Tar Processing Technician ID Alfred Bernal 10/08/2024 8:11 AM EDT [facility]ALTH[facility]ARE LAB Device ID [id number] 10/08/2024 8:11 AM EDT [facility] Urine Urine specimen obtained by clean catch procedure / Unknown 10/08/2024 8:04 AM EDT 10/08/2024 8:11 AM EDT Jay Cadena MD LAB POINT OF CARE TE ST DOCKED DEVICE UNSOLICITED RESULTS Final Result [facility] [address] [place] [address] from Last 3 Months Insurance ANTHEM Advance [...] updated to appropriate status: Yes Care Teams Firefighter Marine Relationship Specialty Start Date End Date Jeferson Simental MD [address] [place] [address] PCP - General Family Medicine 09/16/24
--- OUTSIDE RECORDS SUMMARY | 2024-12-23 09:54 | XMS_ITS | Encounter Summary ---
[facility] Address [address] [place] [id number] Care Team Providers Care Pneumatic Deicer Inspector Name Role Phone Jeferson Simental MD Primary Care Provider [phone] Reason for Visit * Reason Comments Med Refill Encounter Details Date Type Department Care Team (Late Contact Info) Description 10/31/2024 Refill [facility] OBGYN [address] [address] Marbella Mendoza MD [address] [facility] [address] [place] [address] Hormone replacement therapy (HRT) Social History Tobacco [...] Description 02/18/2025 1:30 PM EDT Office Visit [facility] RHEUMATOLOGY [address] [place] [address] Primo Flores MD [address] [facility] [address] [place] [address] 05/14/2025 11:30 AM EST Appointment [facility] [address] [place] [phone] 12/04/2025 1:30 PM EDT Office Visit [facility]YN [address] [facility] [address] [place] [phone] Marbella Mendoza MD [address] [facility] [address] [place] [address] documented as of this encounter Visit Diagnoses Diagnosis Hormone replacement therapy (HRT) documented in this encounter Care Teams Pneumatic Deicer Inspector Relationship Specialty Start Date End Date Jeferson Simental MD [address] [facility] [address] [place] [address] PCP - General Internal Medicine 09/19/24 documented as of this encounter
[2024-12-23] MEDS: DEXAMETHASONE 4MG/ML 5ML MDV 10 MG IV (09:55)
[2024-12-23] MEDS: FAMOTIDINE 20MG TABLET 20 MG PO (09:56)
[2024-12-23] MEDS: ACETAMINOPHEN 325MG TAB 650 MG PO (09:56)
[2024-12-23] MEDS: IRON SUCROSE COMPLEX 200 MG in 0.9 % SODIUM CHLORIDE 100 ML 220 MG IV (10:41)
[2024-12-23 10:47] VITALS: BP 159/98; PULSE 66; RESP 18; TEMP 36.6; O2SAT 100
[2024-12-23 10:57] VITALS: BP 146/85; PULSE 64
[2024-12-23 11:03] VITALS: BP 148/87; PULSE 65
[2024-12-23 11:15] VITALS: BP 142/76; PULSE 63
[2024-12-23 11:50] VITALS: BP 142/85; PULSE 61
[2024-12-23 12:25] VITALS: BP 144/82; PULSE 65
== END 2024-12-23 12:25 | disposition home or self-care (01) ==
LOC: INF 09:48
PROVIDERS: PCP Internal Medicine; Visit Provider Internal Medicine Medical Oncology
DX: D50.9 Iron deficiency anemia, unspecified (principal)
CPT/HCPCS: 96365; J1100; J1200; J1756